=== PATIENT | male | born 1935 | race Caucasian/White ===

== ENCOUNTER 2022-03-21 09:01 | Outpatient (CLI) | payer MEDICARE, BC, SELFPAY ==
[2022-03-21 13:11] LABS: Chloride* 106 mmol/L (96-114); Sodium* 138 mmol/L (135-149)
[2022-03-21 13:12] LABS: Potassium* 4.5 mmol/L (3.6-5.1)
[2022-03-21 13:15] LABS: Blood Urea Nitrogen* 31 mg/dL (7-30); Calcium* 9.4 mg/dL (8.4-10.6); Carbon Dioxide* 24 mmol/L (20-32); Creatinine* 1.9 mg/dL (0.5-1.5); Estimated Glomerular Filt Rate 34 ml/min; Glucose* 115 mg/dL (60-115)
== END 2022-03-21 09:02 | disposition home or self-care (01) ==
LOC: NFLDREF 09:02
PROVIDERS: PCP Family Medicine; Visit Provider Family Medicine
DX: Z01.818 Encounter for other preprocedural examination (principal); I48.0 Paroxysmal atrial fibrillation
CPT/HCPCS: 80048

== ENCOUNTER 2022-03-30 10:29 | Day surgery (SDC) | payer MEDICARE, BC, SELFPAY ==
[2022-03-30] MEDS: SODIUM CHLORIDE 0.9 % (FLUSH) 10 ML SYRINGE IVF (11:05)
[2022-03-30] MEDS: KETOROLAC OPHTH 0.5% 1 DROP EYE-LEFT ×5 (11:15→12:05)
[2022-03-30 11:20] VITALS: BP 132/71; PULSE 77; RESP 18; TEMP 36.3; O2SAT 96
[2022-03-30 11:27] VITALS: BMI 27.8
[2022-03-30] MEDS: TETRACAINE 0.5% OPHTH 1 DROP EYE-LEFT (11:33)
[2022-03-30] MEDS: BALANCED SALT IRRIG SOLN 15 ML EYE-LEFT (12:35)
[2022-03-30] MEDS: TETRACAINE 0.5% OPHTH 2 DROP EYE-LEFT (12:35)
[2022-03-30 13:40] VITALS: BP 135/83; PULSE 81; RESP 16; TEMP 36.6; O2SAT 96
--- NOTE | 2022-03-30 13:46 | W.ANESCHARGE ---
Anesthesia Charges Start Date/Time Anesthesia Start Date: 03/30/22 Anesthesia Start Time: 13:15 Stop Date/Time Anesthesia Stop Date: 03/30/22 Anesthesia Stop Time: 13:45 Summary Emergency: No Extremes of Age: Over 72-CPT 18705
--- NOTE | 2022-03-30 13:48 | W.ANESCHARGE ---
Anesthesia Charges Start Date/Time Anesthesia Start Date: 03/30/22 Anesthesia Start Time: 13:15 Stop Date/Time Anesthesia Stop Date: 03/30/22 Anesthesia Stop Time: 13:45 Summary Emergency: No Extremes of Age: Over 72-CPT [id number]
--- NOTE | 2022-05-02 07:34 | OP_ITS ---
NAME OF PROCEDURE Kelman phacoemulsification, left eye, with posterior chamber lens implant. PREOPERATIVE DIAGNOSIS Nuclear sclerotic cortical combined cataract, left eye. ? POSTOPERATIVE DIAGNOSIS Nuclear sclerotic cortical combined cataract, left eye. ? INDICATIONS FOR PROCEDURE The patient has noted that his vision in the left eye is failing. ?He is status post cataract surgery, right eye many years ago. ?Severity 7/10. ?Unable to correct with glasses/contact lenses; has disabling night glare when he is driving, difficulty reading. ?Because of this, he elected to proceed with surgical repair. ?I have explained the risks, benefits, alternative treatments to him including possible loss of the eye under correction, over correction, need for more surgery. ?The patient understands, accepts, and elects to proceed with surgical repair. PROCEDURE The left eye was dilated with a combination 1% Mydriacyl, 2.5% phenylephrine with topical Ocufen and Vigamox applied to the corneal surface. ?He was brought to the main operating room where under IV sedation, after pausing to identify the correct patient, correct intraoperative lens, power 24 diopters, the left eye was prepped and draped in usual sterile fashion for intraocular surgery. ?A lid speculum was placed and a paracentesis created at 6 o'clock. ?The chamber was filled with OVD and entered temporally with a keratome. ?A continuous tear capsulotomy was performed. ?The nucleus was hydrodissected and emulsified with local anesthetic and emulsified in a chop technique in the capsular bag. ?Residual cortex was clean. ?The capsule was clear. ?At this point, ZCBOO 24 diopter posterior chamber lens implant was injected into the capsular bag and was well centered. ?Residual OVD was cleaned from behind the implant from the capsular bag. ?The incision hydrated and noted to be leak free. ?Topical Alphagan, pilocarpine, and Vigamox were applied to the corneal surface and the patient returned to recovery in good condition having tolerated the procedure well. CONDITION ON DISCHARGE Satisfactory.
== END 2022-03-30 14:06 | disposition home or self-care (01) ==
PROVIDERS: PCP Family Medicine; Visit Provider Ophthalmology
PROC: (CPT 66984; principal; 2022-03-30 12:00)
DX: H25.812 Combined forms of age-related cataract, left eye (principal)
CPT/HCPCS: 66984; 00142; 99100; A9270; J2250; J3010; S0020; V2632

== ENCOUNTER 2022-07-06 08:26 | Emergency (ER) | payer MEDICARE, BC, SELFPAY ==
[2022-07-06 08:59] VITALS: BP 135/86; PULSE 96; RESP 18; TEMP 36.4; O2SAT 95; BMI 28.7
--- NOTE | 2022-07-06 09:10 | ED_ITS ---
HPI - Male Genitourinary General Time Seen by Provider: 09:11 Date Seen: 07/06/22 Chief complaint: Urogenital Problems, Male Stated complaint: poss bladder infectioin Time Seen by Provider: 07/06/22 09:10 Source: patient, RN notes reviewed and old records reviewed Mode of arrival: ambulatory Limitations: no limitations History of Present Illness HPI Narrative: Patient is an 87-year-old male with known stage 3 chronic kidney disease, urinary retention who sap self caths multiple times a day who comes to the emergency room with what he describes as funny looking urine this morning. Patient notes that he does do a self catheterization and today noticed that he had some white substance in his urine. He has not felt feverish or had any vomiting. He notes previous UTIs. He is scheduled to follow-up with Dr. Escamilla tomorrow at her regularly scheduled appointment. He does tell me that he has chronic kidney disease. He does not know of any problems with bacterial susceptibility in the past. 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 (Acute) N18.30, D63.1 Allergic rhinitis (Acute) J30.9 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 Medical History?(Updated 03/21/22 @ 22:46 by Anselmo Escamilla MD) Abnormal blood level of cobalt Allergic rhinitis 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 Benign prostatic hyperplasia Diverticulum of bladder Flaccid neurogenic bladder Frequent urinary tract infections History of vitamin D deficiency Monoclonal gammopathy of unknown significance (MGUS) Paroxysmal atrial fibrillation with rapid ventricular response (04/29/21) Retention of urine Sepsis due to urinary tract infection (04/29/21) Stage 3 chronic kidney disease Thoracic aortic ectasia Related Data Home Medications Medication Instructions Recorded Confirmed zinc 50 mg tablet 50 mg PO QDAY 03/21/22 06/27/22 cholecalciferol (vitamin D3) 50 50 mcg PO QDAY 06/27/22 06/27/22 mcg (2,000 unit) capsule diphenhydramine 25 1 tab PO QHS PRN 06/27/22 06/27/22 mg-acetaminophen 500 mg tablet (Tylenol PM Extra Strength) loratadine 10 mg tablet (Claritin) 10 mg PO QDAY 06/27/22 06/27/22 Allergies Allergy/AdvReac Type Severity Reaction Status Date / Time oxycodone Allergy Intermediate Rash Verified 06/27/22 10:52 Review of Systems Status of ROS: Reports: 6 or more systems reviewed and unremarkable except as noted in History and below Narrative: Patient denies fever and chills, he has not had any vomiting, he has no painful urination, no body aches. [facility] Medical History Abnormal blood level of cobalt Allergic rhinitis 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 Benign prostatic hyperplasia Diverticulum of bladder Flaccid neurogenic bladder Frequent urinary tract infections History of vitamin D deficiency Monoclonal gammopathy of unknown significance (MGUS) Paroxysmal atrial fibrillation with rapid ventricular response (04/29/21) Retention of urine Sepsis due to urinary tract infection (04/29/21) Stage 3 chronic kidney disease Thoracic aortic ectasia Surgical History History of appendectomy History of open reduction and internal fixation (ORIF) procedure (194) History of phacoemulsification of cataract of right eye with intraocular lens implantation History of radial keratotomy (1997) History of total replacement of both hip joints (2006) Family History Father Bladder cancer Brother Colon cancer Sister Parkinson disease Social History Narrative: , 3 kids, 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 Nontoxic in appearance. Heart with regular rate and rhythm Lungs are clear to auscultation No CVA tenderness with percussion Abdomen soft nontender. Examination of the urine that he has brought with him shows of white creamy substance in the urine likely clumping of white cells. Const: Vital Signs, click to edit/add: Vital Signs - 24 hr 07/06/22 08:59 07/06/22 10:09 Temperature 97.5 F L 97.5 F L Pulse Rate [Right Pulse Oximeter] 96 96 Respiratory Rate 18 18 Blood Pressure [Ri ght Upper Arm] 135/86 135/86 Pulse Oximetry 95 Oxygen Delivery Me thod Room Air Course Vital Signs Vital signs: Initial Vital Signs Temperature 97.5 F L 07/06/22 08:59 Temperature Source Temporal Artery Scan 07/06/22 08:59 Pulse Rate 96 07/06/22 08:59 Respiratory Rate 18 07/06/22 08:59 Blood Pressure 135/86 07/06/22 08:59 Blood Pressure Mean 102 07/06/22 08:59 Blood Pressure Position Sitting 07/06/22 08:59 Pulse Oximetry 95 07/06/22 08:59 Oxygen Delivery Method 07/06/22 08:59 Vital Signs Temperature 97.5 F L 07/06/22 08:59 Pulse Rate 96 07/06/22 08:59 Respiratory Rate 18 07/06/22 08:59 Blood Pressure 135/86 07/06/22 08:59 Pulse Oximetry 95 07/06/22 08:59 Oxygen Delivery Method 07/06/22 08:59 Temperature 97.5 F L 07/06/22 10:09 Pulse Rate 96 07/06/22 10:09 Respiratory Rate 18 07/06/22 10:09 Blood Pressure 135/86 07/06/22 10:09 Pulse Oximetry 95 07/06/22 08:59 Oxygen Delivery Method 07/06/22 08:59 MDM - Male Genitourinary MDM Narrative Medical decision making narrative: 1. UTI-at this time patient does not appear septic but certainly urinalysis suggests UTI with greater than 100 wbc's, 2+ blood, positive for nitrites and leukocyte esterase. I was able to look back at a previous UTI encounter. Patient grew out E coli at that time with with lujan sensitivity. Will place patient on Keflex 500 mg p.o. t.i.d. x7 days. Patient will follow-up with his primary tomorrow. I would recommend checking to see if the culture has been returned to ensure that we are giving the correct antibiotic. 2. Disposition-patient is discharged home. Recommend returning for fever, vomiting, worsening symptoms and as needed. Note this patient was seen without the ability to access expanse. Therefore written instructions for discharge as well as a written prescription for Keflex were given to patient. Medical Records Attestation: I reviewed the patient's medical records. Lab Data Attestation: I reviewed the patient's lab results. Labs: Lab Results 07/06/22 Range/Units 09:05 Urine Color Yellow (Yellow) Urine Appearance Clear (Clear) Urine pH 6.0 (5.0-8.5) Ur Specific [place] >= 1.030 (1.000-1.030) Urine Protein 3+ A (Negative) Urine Glucose (UA) Negative (Negative) Urine Ketones Negative (Negative) Urine Blood 2+ A (Negative) Urine Nitrite Positive A (Negative) Urine Bilirubin Negative (Negative) Urine Urobilinogen 0.2 (0.2-1.0) Ur Leukocyte Esterase 3+ A (Negative) Urine RBC 5-10 A (0-2) Urine WBC >100 A (0-5) Ur Squamous Epith Cells None (None-Few) Urine Bacteria Moderate A (None) Discharge Plan Discharge Prescriptions: No Action cholecalciferol (vitamin D3) 50 mcg (2,000 unit) capsule 50 mcg PO QDAY loratadine [Claritin] 10 mg tablet 10 mg PO QDAY diphenhydramine-acetaminophen [Tylenol PM Extra Strength] 25-500 mg tablet 1 tab PO QHS PRN zinc 50 mg tablet 50 mg PO QDAY Follow Up/Referrals: Anselmo Escamilla MD [Primary Care Provider] -
[2022-07-06 09:19] LABS: Appearance Urine Clear (Clear); Bilirubin Urine Negative (Negative); Blood Urine 2+ (Negative); Color Urine Yellow (Yellow); Glucose Urine Negative (Negative); Ketones Urine Negative (Negative); Leukocyte Esterase Urine 3+ (Negative); Nitrite Urine Positive (Negative); Protein Urine 3+ (Negative); Specific Gravity Urine >= 1.030 (1.000-1.030); Urobilinogen Urine 0.2 (0.2-1.0)
[2022-07-06 09:29] LABS: Bacteria Urine Moderate; WBC Urine >100 (0-5)
--- NOTE | 2022-07-06 10:00 | ED.NURSE ---
Paper Rx for Keflex given to Pt: Keflex 500mg PO TID x7 days. D/C instructions reviewed with Pt and spouse. Questions answered and Pt verbalizes understanding. VSS. Pt leaves ED with spouse ambulatory, tolerates well.
--- OUTSIDE RECORDS SUMMARY | 2022-07-06 10:01 | XMS_ITS | Clinical Summary ---
:1935 Author Organization [facility] [place] [address] Care Team Providers Name Role Phone Cruz Lemon MD Unavailable Fredy Brizuela Unavailable Anselmo Escamilla MD Primary Care Provider [phone] Allergies Active Allergy Reactions Severity Noted Date Comments Amoxicillin Rash 12/15/2021 Oxycodone Rash 07/03/2007 Medications Medication Sig Dispensed Refills Start Date End Date Status zinc sulfate 50 mg zinc Daily 0 Active (220 mg) capsule tamsulosin (FLOMAX) 0.4 Take 0.4 mg by 0 05/03/2021 Active mg capsule mouth. povidone-iodine 10% Apply topically 0 05/05/2021 Active (BETADINE) 10 % to affected external solution area(s). Catheter 14-16 Fr- As directed. 60 Each 2 05/12/2021 Active miscIndications: BPH coudet tip, with urinary obstruction cholecalciferol Take 1 Tablet 0 12/15/2021 Active (Vitamin D) 1,000 unit (1,000 units) by tablet mouth once daily. 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 11/28/2018 MGUS (monoclonal gammopathy of unknown significance) 0 11/28/2018 Hypercalcemia 10/24/2018 Acute renal failure (ARF) 10/24/2018 Generalized osteoarthrosis, unspecified site 0 Sciatica 01/15/2009 Overview: Right L5-S1: only numbness right foot Routine general medical examination at a health care f acility 12/24/2008 Overview: Has declined colonoscopy (bro with Colon Ca) Lipids: 188 tot/ 105 LDL 2000 PSA: 0.1 2000 Allergic rhinitis, cause unspecified Encounters Date Type Specialty Care Team Description 06/22/2022 Orders Only Johnnie Parry, <No scans attached> 06/17/2022 Telephone Johnnie Parry, Lab 04/21/2022 Orders Only Lab, [place] Outside Order ( Sea Danielle/) 04/21/2022 Travel 04/07/2022 Orders Only Krishna Infante, Aii de Order (Dr Sea Danielle) 04/07/2022 Orders Only Anselmo Escamilla, <No s cans attached> from Last 3 Months Immunizations Name Administration Dates Next Due AMB Influenza, IIV3 (Age >=3 08/26/2010, 09/12/2008 years)(Flu Clinic Only) AMB Influenza, IIV4 PF (=>6 mos 07/18/2019 Flulaval,Fluzone Fluarix)(Flu Clinic Only) Amb Influenza, Inactivated AIIV4 (Age 1006/23/2020 65+ Years) Preserv Free Influenza, High-dose Inactivated 08/31/2018 Influenza, IIV3 (Age 6-35 mos) 08/19/2009 Influenza, IIV3 (Age >=3 years) 08/06/2015, 08/08/2014, 07/06, 09/07/2012, 07/05/2012, 08/19/2009, 07/03/2007, 10/10/2006, 06/23/2004, 08/20/2003 Influenza, IIV4 08/04/2018 Influenza, Inactivated AIIV4 (Age 65+ 05/19/2021 Years) Preserv Free Influenza, Whole Virus 08/07/2017 Pneumococcal Poly,23-Valent 12/24/2008 (Pneumovax) Td, Preservative Free (age >= 7 03/10/2009 Years) Tdap 02/06/2013 Zoster (Zostavax-ZVL, live) 01/15/2009 Family History Medical History Relation Name Comments Cancer-colon Brother Jonny Cancer Father Mitch Bladder Other Sister Cha Parkinson's Anesthesia Problem No Family History Blood Disease No Family History Relation Name Status Comments Brother Jonny Alive Father Mitch (Age 94) Mother Rosalind (Age 88) Sister Cha (Age 79) Parkinson's Social History Tobacco Use Types Packs/Day Years Used Date Never Smoker Smokeless Tobacco: Never Used Tobacco Cessation: Counseling Given: Yes Alcohol Use Standard Drinks/Week Comments Yes 1.7 (1 standard drink = 0.6 oz pure alco hol) occasional wine Sex Assigned at Date Recorded Not on file Obstetrics History Last Filed Vital Signs Vital Sign Reading Time Taken Comments Blood Pressure 138/77 12/15/2021 3:23 PM CDT Pulse 75 12/15/2021 3:23 PM CDT Temperature 36.7 ??C (98.1 ??F) 05/19/2021 12:41 PM CDT Respiratory Rate 16 10/29/2018 4:00 PM HYPERION DEVELOPER Oxygen Saturation 96% 12/15/2021 3:23 PM CDT Inhaled Oxygen Concentration - - Weight 91.7 kg (202 lb 3.2 oz) 12/15/2021 3:23 PM CDT Height 180 cm (5' 10.87) 02/27/2019 2:21 PM CDT Body Mass Index 28.31 02/27/2019 2:21 PM CDT Plan of Treatment Upcoming Encounters Date Type Specialty Care Team Description 09/22/2022 Orders Only Lab, [place] 09/29/2022 Office Visit Johnnie Parry MD [address] [place], [place] [address] (Wo rk) Health Maintenance Due Date Last Done Comments Zoster (shingles) series for age 0703/12/2009 01/15/2009 50+ (1 of 2) Pneumococcal series for age 65+ (2 12/24/2009 12/24/2008 - PCV) Medicare Wellness for age 65+ 02/06/2014 02/06/2013 BMI (ht and wt on same day) for 02/28/2020 02/27/2019, 03/2019, age 18+ 11/29/2018, Additional history exists COVID-19 vaccine series (4 - 10/12/2021 08/17/2021, 021, Booster for Moderna series) 10/18/2020 Depression screening for age 12+ 04/01/2022 04/01/2021, , 03/27/2021, Additional history exists Influenza for age 65+ 05/05/2022 05/19/2021, 06/23/2020, 07/18/2019, Additional history exists Tetanus booster 02/06/2023 02/06/2013, 03/10/2009 Tdap Completed 02/06/2013 Procedures Procedure Name Priority Date/Time Associated Diagnosis Comme nts CBC WITH AUTO Routine 04/21/2022 7:41 Monoclonal Results for this DIFFERENTIAL AM CDT paraproteinemia procedure ar e in the results section. PROTEIN ELP,SERUM Routine 04/21/2022 7:41 Monoclonal Results for this AM CDT paraproteinemia procedure ar e in the results section. LD,TOTAL Routine 04/21/2022 7:41 Monoclonal Results for this AM CDT paraproteinemia procedure ar e in the results section. IMMUNOGLOBULINS,IGG/ Routine 04/21/2022 7:41 Monoclonal Resu lts for this A/M AM CDT paraproteinemia procedure ar e in the results section. COMP METABOLIC PANEL Routine 04/21/2022 7:41 Monoclonal Resu lts for this AM CDT paraproteinemia procedure ar e in the results section. CBC WITH AUTO Routine 04/21/2022 7:41 Monoclonal Results for this DIFFERENTIAL AM CDT paraproteinemia procedure ar e in the results section. from Last 3 Months Results (ABNORMAL) CBC WITH AUTO DIFFERENTIAL (04/21/2022 7:41 AM CDT) [facility] Method Time Signature WHITE BLOOD 6.7 4.5 - 04/21/2022 [facility] COUNT 11.0 7:57 AM CDT [facility]/ CLINIC mm RED BLOOD COUNT 4.26 (L) 4.30 - 04/21/2022 [facility] 5.90 7:57 AM CDT [facility] CLINIC HEMOGLOBIN 13.5 13.5 - 04/21/2022 [facility] 17.5 g/dL 7:[address] [facility] HEMATOCRIT 41.9 37.0 - 04/21/2022 [facility] HEALTH 53.0 % 7:[address] [facility] MCV 98 80 - 100 04/21/2022 [facility] fL 7:[address] [facility] MCH 31.7 26.0 - 04/21/2022 [facility] 34.0 pg 7:[address] [facility] MCHC 32.2 32.0 - 04/21/2022 [facility] 36.0 g/dL 7:[address] [facility] RDW 13.4 11.5 - 04/21/2022 [facility] 15.5 % 7:[address] [facility] PLATELET COUNT 215 140 - 440 04/21/2022 [facility] thou/cu 7:57 AM CDT [facility] CLINIC MPV 9.8 6.5 - 04/21/2022 [facility] 11.0 fL 7:[address] [facility] % NEUT 71.9 % 04/21/2022 [facility] 7:[address] [facility] % LYMPH 16.0 % 04/21/2022 [facility] 7:[address] [facility] % MONO 10.2 % 04/21/2022 [facility] 7:[address] [facility] % EOS 1.5 % 04/21/2022 [facility] 7:[address] [facility] % BASO 0.4 % 04/21/2022 [facility] 7:[address] [facility] ABSOLUTE 4.8 1.7 - 7.0 04/21/2022 [facility] NEUTROPHILS thou/cu 7:57 AM CDT [facility] CLINIC ABSOLUTE 1.1 0.9 - 2.9 04/21/2022 [facility] LYMPHOCYTES thou/cu 7:57 AM CDT [facility] CLINIC ABSOLUTE 0.7 <0.9 04/21/2022 [facility] MONOCYTES thou/cu 7:57 AM CDT [facility] CLINIC ABSOLUTE 0.1 <0.5 04/21/2022 [facility] EOSINOPHILS thou/cu 7:57 AM CDT [facility] CLINIC ABSOLUTE 0.0 <0.3 04/21/2022 [facility] BASOPHILS thou/cu 7:[address] [facility] Specimen Anatomical Collection Method / Collection Time Recei crystal Time (Source) Location / Volume Laterality Blood BLOOD SPECIMEN / Venipuncture / 04/21/2022 7:41 2021 7:42 Unknown Unknown AM CDT AM CDT Narrative [facility] - 2021 7:57 AM CDT The lab will provide the testing results for CDF,CMP,IgGsub,Igtotal,LDH,SEP, to the outside provider, ??Dr Sea Danielle at x number [phone], for that provider to inform and arrange appropriate follow up with the patient. Krishna Infante MD HEMATOLOGY Performing Organization Address City/State/ZIP Code Phon e Number [facility] [address] [place] [address] IMMUNOGLOBULINS,IGG/A/M (04/21/2022 7:41 AM CDT) athologist Signature IGM 54.30 35.00 - 04/22/2022 [facility] 242.00 10:46 AM CDT LAB[facility]ATORY-CENT mg/dL [facility] IGA 271.42 84.50 - 04/22/2022 [facility] 499.00 10:46 AM CDT [facility] mg/dL [facility] IGG 1,229.31 610.30 - 04/22/2022 [facility] 1,616.00 10:46 AM CDT LABORATORY-CENT mg/dL [facility] Specimen Anatomical Collection Method / Collection Time Recei crystal Time (Source) Location / Volume Laterality Blood BLOOD SPECIMEN / Venipuncture / 04/21/2022 7:41 2021 7:42 Unknown Unknown AM CDT AM CDT Krishna Infante MD CHEMISTRY Performing Organization Address City/State/ZIP Code Phon e Number [facility] [address] [place], [place] [address] [place] [address] LABORATORY-CENTRAL 2000 LABORATORY LD,TOTAL (04/21/2022 7:41 AM CDT) P athologist Signature LD,TOTAL 133 125 - 220 04/21/2022 [facility] IU/L 6:17 PM CDT LABORATORY-CENTR AL LABORATORY Specimen Anatomical Collection Method / Collection Time Recei crystal Time (Source) Location / Volume Laterality Blood BLOOD SPECIMEN / Venipuncture / 04/21/2022 7:41 2021 7:42 Unknown Unknown AM CDT AM CDT Krishna Infante MD CHEMISTRY Performing Organization Address City/State/ZIP Code Phon e Number [facility] [address] [place] [address] LABORATORY-CENTRAL 2000 LABORATORY (ABNORMAL) PROTEIN ELP,SERUM (04/21/2022 7:41 AM CDT) Component Value Ref Test Analysis Performed At [facility] Range Method Time Signature PROTEIN,TOTAL 7.3 6.0 - 04/22/2022 [facility] 8.0 g/dL 4:55 PM CDT LABORATORY-CE [facility] LABORATORY ELP,ALBUMIN 4.19 3.31 - 04/22/2022 [facility] 5.31 4:55 PM CDT LABORATORY-CE g/dL [facility] LABORATORY ELP,ALPHA 1 0.30 0.19 - 04/22/2022 [facility] 0.42 4:55 PM CDT LABORATORY-CE g/dL [facility] LABORATORY ELP,ALPHA 2 0.89 0.44 - 04/22/2022 [facility] 1.03 4:55 PM CDT LABORATORY-CE g/dL [facility] LABORATORY ELP,GAMMA 1.13 0.59 - 04/22/2022 [facility] 1.46 4:55 PM CDT LABORATORY-CE g/dL [facility] LABORATORY ELP,BETA 0.80 0.52 - 04/22/2022 [facility] 1.05 4:55 PM CDT LABORATORY-CE g/dL [facility] LABORATORY MONOCLONAL 0.31 <=0.00 04/22/2022 [facility] PEAK 1 g/dL 4:55 PM CDT LABORATORY-CE [facility] LABORATORY ELP Interval study shows essenti ally no change in magnitude of previously identified monoclonal peak. Previous Study: 0.30 gm/dL on 02/11/2021. 04/22/2022 [facility] C2[facility] INTERP,SERUM 4:55 PM CDT LABORATORY-CE Interpreted and electronically signed by: NTRJO Paul MD LABORAT ORY Specimen Anatomical Collection Method / Collection Time Recei crystal Time (Source) Location / Volume Laterality Blood BLOOD SPECIMEN / Venipuncture / 04/21/2022 7:41 2021 7:42 Unknown Unknown AM CDT AM CDT Krishna Infante MD CHEMISTRY Performing Organization Address City/State/ZIP Code Phon e Number [facility] [address] [place] [address] LABORATORY-CENTRAL 2000 LABORATORY (ABNORMAL) COMP METABOLIC PANEL (04/21/2022 7:41 AM CDT) [facility] Method Time Signature SODIUM 139 135 - 145 04/21/2022 [facility] mmol/L 6:09 PM CDT LABORATORY-[facility] TRAL LABORATORY POTASSIUM 4.6 3.5 - 5.0 04/21/2022 [facility] mmol/L 6:09 PM CDT LAB[facility]ATORY[facility] TRAL LABORATORY CHLORIDE 107 98 - 110 04/21/2022 [facility] mmol/L 6:09 PM CDT [facility] LABORATORY CO2,TOTAL 23 21 - 31 04/21/2022 [facility] mmol/L 6:09 PM CDT [facility] LABORATORY ANION GAP 9 5 - 18 04/21/2022 [facility] 6:09 PM CDT [facility] LABORATORY GLUCOSE 81 65 - 100 04/21/2022 [facility] mg/dL 6:09 PM CDT [facility]AT[facility] TRAL LABORATORY CALCIUM 9.2 8.5 - 04/21/2022 [facility] 10.5 6:09 PM CDT [facility]ATORY[facility] mg/dL TRAL LABORATORY BUN 32 (H) 8 - 25 04/21/2022 [facility] mg/dL 6:09 PM CDT [facility] TRAL LABORATORY CREATININE 1.97 (H) 0.72 - 04/21/2022 [facility] 1.25 6:09 PM CDT LABORATORY-[facility] mg/dL TRAL LABORATORY BUN/CREAT RATIO 16 10 - 20 04/21/2022 [facility] 6:09 PM CDT [facility] TRAL LABORATORY ALBUMIN 4.1 3.2 - 4.6 04/21/2022 [facility] g/dL 6:09 PM CDT [facility] TRAL LABORATORY PROTEIN,TOTAL 7.4 6.0 - 8.0 04/21/2022 [facility] g/dL 6:09 PM CDT [facility]AL LABORATORY GLOBULIN 3.3 2.0 - 3.7 04/21/2022 [facility] g/dL 6:09 PM CDT LABORATORY[facility] TRAL LABORATORY A/G RATIO 1.2 1.0 - 2.0 04/21/2022 [facility] 6:09 PM CDT [facility] TR[facility] LABORATORY BILIRUBIN,TOTAL 0.5 0.2 - 1.2 04/21/2022 [facility] mg/dL 6:09 PM CDT [facility]AT[facility] TRAL LABORATORY ALK PHOSPHATASE 74 50 - 136 04/21/2022 [facility] IU/L 6:09 PM CDT [facility] TRAL LABORATORY ALT (SGPT) 13 8 - 45 04/21/2022 [facility] IU/L 6:09 PM CDT [facility] TRAL LABORATORY AST (SGOT) 17 2 - 40 04/21/2022 [facility] IU/L 6:09 PM CDT [facility] TRAL LABORATORY eGFR 33 (L) >90 04/21/2022 [facility] mL/min/1. 6:09 PM CDT LABORATORY-[facility] 73m2 TRAL LABORATORY Comment: As of 2021, eGFR is calcu lated by the CKD-EPI creatinine equation without race adjustment. eGFR can be inf luenced by muscle mass, exercise, and diet. The reported eGFR is an estimation only and is only applicable if the renal function is stable. Specimen Anatomical Collection Method / Collection Time Recei crystal Time (Source) Location / Volume Laterality Blood BLOOD SPECIMEN / Venipuncture / 04/21/2022 7:41 2021 7:42 Unknown Unknown AM CDT AM CDT Krishna Infante MD CHEMISTRY Performing Organization Address City/State/ZIP Code Phon e Number [facility] [address] [place] [address] LABORATORY-CENTRAL 2000 LABORATORY from Last 3 Months Insurance Payer Benefit Plan / Subscriber ID Effective Dates Phone Addre ss Type Group MEDICARE PART B MEDICARE PART B [id number] 2002-Presen ATTN: CLAIMS - HB USE ONLY HB ONLY t [address] [place] [address] MEDICARE PART A MEDICARE PART A [id number] 2002-Presen ATTN: CLAIMS - HB USE ONLY HB ONLY t [address] [place] [address] MEDICARE - PB MEDICARE PB [id number] 2002-Presen ATTN : CLAIMS USE ONLY ONLY t [address] [place] [address] BLUE CROSS BLUE CROSS OF [id number] 2016-Presen [address] [place] [phone] (Work) [phone] Advance Directives Documents on File Type Date Recorded Patient Training And Development Head Explanati on Healthcare Directive 10/25/2018 6:11 PM 02 MAY 2003 Latest Code Status on File Code Status Date Activated Date Inactivated Comments Full Code 10/24/2018 2:26 PM 10/29/2018 7:06 PM Code Status Discussion: Discussed Care Teams Shuttlecock Feather Trimmer Relationship Specialty Start Date End Date Anselmo Escamilla MD PCP - General Family Practice 07/08/211999 [place] [address] Cruz Lemon MD Ophthalmology Surgery 02/06/[address] [place] [id number] Fredy Brizuela Ophthalmology Surgery 02/06/13 [address] [place] [address]
[2022-07-06 10:09] VITALS: BP 135/86; PULSE 96; RESP 18; TEMP 36.4
== END 2022-07-06 10:00 | disposition home or self-care (01) ==
LOC: ED 09:59
PROVIDERS: Emergency Provider Family Medicine; PCP Family Medicine
DX: N39.0 Urinary tract infection, site not specified (principal); D63.1 Anemia in chronic kidney disease; N18.30 Chronic kidney disease, stage 3 unspecified; Z88.5 Allergy status to narcotic agent
CPT/HCPCS: 81003; 81015; 87086; 99283

== ENCOUNTER 2022-10-10 09:29 | Outpatient (REF) | payer MEDICARE, BC, SELFPAY ==
[2022-10-10 11:04] LABS: Basophils Percent Auto 0.7 % (0.0-3.0); Eosinophils Percent Auto 1.2 % (0.0-7.0); Hematocrit 44.8 % (37.0-53.0); Hemoglobin* 13.9 gm/dL (13.5-17.5); Immature Granulocytes Pct Auto 0.2 %; Lymphocytes Percent Auto 22.3 % (20-44); Mean Corpuscular HGB Conc 31 gm/dL (32-36); Mean Corpuscular Hemoglobin 31 pg (26-34); Mean Corpuscular Volume 99 fL (80-100); Monocytes Percent Auto 10.4 % (0.0-11.0); Neutrophils Percent Auto 65.2 % (42.0-72.0); Platelet Count* 202 K/uL (140-440); RDW Coefficient of Variation % 12.4 % (11.5-15.5); Red Blood Count 4.53 m/uL (4.30-5.90); White Blood Count* 4.03 K/uL (4.50-11.00)
[2022-10-10 11:06] LABS: Slide Review Reflex No
[2022-10-10 11:21] LABS: Lactate Dehydrogenase* 161 U/L (120-246)
[2022-10-11 15:54] LABS: Immunoglobulin A 257 mg/dL (68-408); Immunoglobulin G 1260 mg/dL (768-1632); Immunoglobulin M 57 mg/dL (35-263)
[2022-10-18 16:26] LABS: Albumin 4.15 g/dL (3.75-5.01); Alpha 2 Globulin 0.93 g/dL (0.48-1.05); Monoclonal Protein 0.55 g/dL; Total Protein, Serum 7.3 g/dL (6.3-8.2)
== END 2022-10-10 09:30 | disposition home or self-care (01) ==
LOC: NPINS 09:29
PROVIDERS: PCP Family Medicine
DX: D47.2 Monoclonal gammopathy (principal)
CPT/HCPCS: 82784; 82787; 83615; 84165; 85025

== ENCOUNTER 2023-04-20 12:30 | Outpatient (REF) | payer MEDICARE, BC, SELFPAY ==
[2023-04-20 14:31] LABS: Basophils Absolute Auto 0.02 K/uL (0.00-0.30); Basophils Percent Auto 0.3 % (0.0-3.0); Eosinophils Absolute Auto 0.07 K/uL (0.00-0.50); Eosinophils Percent Auto 1.2 % (0.0-7.0); Hematocrit 42.3 % (37.0-53.0); Hemoglobin* 13.3 gm/dL (13.5-17.5); Immature Granulocytes Abs Auto 0.01 K/uL (0.00-0.30); Immature Granulocytes Pct Auto 0.2 %; Lymphocytes Percent Auto 13.2 % (20-44); Mean Corpuscular HGB Conc 31 gm/dL (32-36); Mean Corpuscular Hemoglobin 31 pg (26-34); Mean Corpuscular Volume 98 fL (80-100); Monocytes Percent Auto 9.4 % (0.0-11.0); Neutrophils Percent Auto 75.7 % (42.0-72.0); Platelet Count* 224 K/uL (140-440); RDW Coefficient of Variation % 12.3 % (11.5-15.5); Red Blood Count 4.33 m/uL (4.30-5.90); White Blood Count* 6.06 K/uL (4.50-11.00)
[2023-04-20 15:07] LABS: Slide Review Reflex No
[2023-04-20 16:05] LABS: Albumin* 4.3 g/dL (3.3-5.0); Chloride* 102 mmol/L (96-114)
[2023-04-20 16:06] LABS: Potassium* 4.6 mmol/L (3.6-5.1); Sodium* 137 mmol/L (135-149)
[2023-04-20 16:08] LABS: Alkaline Phosphatase* 69 U/L (40-150); Aspartate Amino Transferase* 27 U/L (12-35); Bilirubin Total* 0.6 mg/dL (0.1-1.5); Blood Urea Nitrogen* 29 mg/dL (7-30); Carbon Dioxide* 25 mmol/L (20-32); Creatinine* 1.6 mg/dL (0.5-1.5); Estimated Glomerular Filt Rate 42 ml/min; Glucose* 112 mg/dL (60-115); Lactate Dehydrogenase* 190 U/L (120-246); Total Protein* 7.3 g/dL (6.0-8.3)
[2023-04-20 16:09] LABS: Alanine Aminotransferase* 21 U/L (4-50)
[2023-04-23 01:01] LABS: Albumin 4.23 g/dL (3.75-5.01); Alpha 1 Globulin 0.28 g/dL (0.19-0.46); Alpha 2 Globulin 0.88 g/dL (0.48-1.05); Immunofixation IFE Done; Immunoglobulin A 233 mg/dL (68-408); Immunoglobulin G 1160 mg/dL (768-1632); Immunoglobulin M 53 mg/dL (35-263); Kappa Qnt Free Light Chains 33.77 mg/L (3.30-19.40); Kappa/Lambda Light Chain Ratio 0.99 (0.26-1.65); Lambda Qnt Free Light Chains 34.11 mg/L (5.71-26.30); Monoclonal Protein 0.55 g/dL; Total Protein, Serum 7.3 g/dL (6.3-8.2)
[2023-05-01 15:06] LABS: Calcium* 9.2 mg/dL (8.4-10.6)
== END 2023-04-20 12:31 | disposition home or self-care (01) ==
LOC: NPINS 12:30
PROVIDERS: Internal Medicine Hematology & Oncology; PCP Family Medicine
DX: D47.2 Monoclonal gammopathy (principal)
CPT/HCPCS: 80053; 82784; 82787; 83520; 83615; 84155; 84165; 85025; 86334

== ENCOUNTER 2023-09-26 08:59 | Outpatient (CLI) | payer MEDICARE, BC, SELFPAY ==
--- OUTSIDE RECORDS SUMMARY | 2023-09-28 13:27 | XMS_ITS | Encounter Summary ---
Author Name Unknown Organization [facility] Address [address] [place] [address] Care Team Providers Care Boom Crane Operator Name Role Phone Unavailable Primary Care Provider Unavailabl e Reason for Visit * Appointment Request (Routine) - Closed Specialty Diagnoses / Procedures Referred By Mira ricci Referred To Contact Nephrology and Hypertension Referral ID Status Reason Start Date Expiration Date Visits Re quested Visits Authorized [id number] Closed 09/08/2023 09/07/2024 1 1 Encounter Details Date Type Department Care Team (Latest Contact Info) Description 09/26/2023 8:00 AM LEATHER CASE FINISHER External Outreach Division of Nephrology and Hypertension in [place], [place] [address] [place] [address] Jaime Bull Jr., D.O. [address] [place] [address] Chronic Kidney Disease (CKD), Stage 3b Glomerular [...] Comments Blood Pressure 146/80 09/26/2023 8:04 AM LEATHER CASE FINISHER Pulse 93 09/26/2023 8:04 AM LEATHER CASE FINISHER Temperature - - Respiratory Rate - - Oxygen Saturation - - Inhaled Oxygen Concentration - - Weight 87.9 kg (193 lb 12.6 oz) 09/26/2023 8:04 AM LEATHER CASE FINISHER Height 177.8 cm (5' 10) 09/26/2023 8:04 AM LEATHER CASE FINISHER Body Mass Index 27.81 09/26/2023 8:04 AM LEATHER CASE FINISHER documented in this encounter Progress Notes * Jaime Bull Jr., D.O. - 09/26/2023 8:00 AM CST Referring Provider: No primary care provider on file. SUBJECTIVE REASON FOR VISIT [place] out reach CKD Follow-up regards prior episode of acute kidney injury, now CKD stage IIIA, prior hypercalcemia, monoclonal gammopathy unknown significance right pelvis lesion HISTORY OF PRESENT ILLNESS Mr. Diaz is a 57 y.o. male who presents with the above matters. There was some confusion following her last visit, he would interacted with his son who is a general surgeon, phone number [phone]. There were some questions asked by his [...] pending today, I will contact him at [phone] ASSESSMENT / PLAN #1 Chronic Kidney Disease [...] day. #2 Hypertension And Chronic Kidney Disease [id number] Goal blood pressures have been achieved at [...] Time: 30 minutes Jaime Bull Jr., D.O. 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
--- OUTSIDE RECORDS SUMMARY | 2023-09-28 13:27 | XMS_ITS | Referral Summary ---
Author Name Unknown Organization [facility] Address [address] [place] [address] Care Team Providers Care Caramel Cutter Machine Name Role Phone Unavailable Primary Care Provider Unavailabl e Source Comments Patient records contain information from all sites at [facility]. For routine questions regarding patient records, call [phone] during business hours, M-F 8:00 AM - 5:00 PM Central Time. Record requests for emergency care only can be directed to [phone] at any time.[facility] Encounters Date Type Department Care Team Description 09/26/2023 8:00 AM UNIVERSAL GRINDER TOOL External Outreach Division of Nephrology and Hypertension in [place], [place] [address] [place] [address] Jaime Bull Jr., D.O. Chronic Kidney Disease (CKD), Stage 3b Glomerular Filtration Rate (GFR) 30 To 44 (HCC) (Primary Dx); Hyperparathyroidism Renal Secondary (HCC); Anemia Of Chronic Renal Failure 08/08/2023 3:30 PM UNIVERSAL GRINDER TOOL External Outreach Division of Nephrology and Hypertension in [place], [place] [address] [place] [address] Jaime Bull Jr., D.O. Chronic Kidney Disease [...] Comments Blood Pressure 146/80 09/26/2023 8:04 AM UNIVERSAL GRINDER TOOL Pulse 93 09/26/2023 8:04 AM UNIVERSAL GRINDER TOOL Temperature - - Respiratory Rate 14 11/06/2013 8:15 AM UNIVERSAL GRINDER TOOL Vital sign result from Clinical Notes. Oxygen Saturation - - Inhaled Oxygen Concentration - - Weight 87.9 kg (193 lb 12.6 oz) 09/26/2023 8:04 AM UNIVERSAL GRINDER TOOL Height 177.8 cm (5' 10) 09/26/2023 8:0 4 AM UNIVERSAL GRINDER TOOL Body Mass Index 27.81 09/26/2023 8:04 AM UNIVERSAL GRINDER TOOL Plan of Treatment Not on file Medical Devices Implanted Type Area Archeologist Classical Device Identifier Shelf Expiration Date Model / Serial / Lot Conversions - Default Historical Implant Device Implanted:2015 (Quantity not on file) Hip Implant Description:Device Status Te xt - Hip Imp.
--- OUTSIDE RECORDS SUMMARY | 2023-09-28 13:27 | XMS_ITS | Encounter Summary ---
Author Name Unknown Organization [facility] Address [address] [place] [address] Care Team Providers Care Take Away Worker Name Role Phone Unavailable Primary Care Provider Unavailabl e Reason for Visit * Appointment Request (Routine) - Closed Specialty Diagnoses / Procedures Referred By Mira ricci Referred To Contact Nephrology and Hypertension Anselmo Escamilla M.D. [address] [place] [address] Referral ID Status Reason Start Date Expiration Date Visits Re quested Visits Authorized [id number] Closed 07/13/2023 07/12/2024 1 1 Encounter Details Date Type Department Care Team (Latest Contact Info) Description 08/08/2023 3:30 PM HAZARDOUS MATERIALS ANALYST External Outreach Division of Nephrology and Hypertension in [place], [place] [address] [place] [address] Jaime Bull Jr., D.O. [address] [place] [address] Chronic Kidney Disease (CKD), Stage 3b Glomerular [...] Comments Blood Pressure 138/52 08/08/2023 1:53 PM HAZARDOUS MATERIALS ANALYST Pulse 78 08/08/2023 1:53 PM HAZARDOUS MATERIALS ANALYST Temperature - - Respiratory Rate - - Oxygen Saturation - - Inhaled Oxygen Concentration - - Weight 89.8 kg (197 lb 15.6 oz) 08/08/2023 1:53 PM HAZARDOUS MATERIALS ANALYST Height 177.8 cm (5' 10) 08/08/2023 1:53 PM HAZARDOUS MATERIALS ANALYST Body Mass Index 28.41 08/08/2023 1:53 PM HAZARDOUS MATERIALS ANALYST documented in this encounter Progress Notes * Jaime Bull Jr., D.O. - 08/08/2023 3:30 PM CST Referring Provider: DR Francine Latham SUBJECTIVE REASON FOR VISIT [facility] Consultation management regards CKD HISTORY OF PRESENT ILLNESS Mr. Hunt is a 88 y.o. male who presents with a longstanding history of CKD, which is evident from reviewing his chart, showing a serum creatinine of 1.3-1.4 mg/dL preceding a dramatic event in October of 2018. He presented to the [facility] feeling poorly with a serum calcium level [...] or gout issues. 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
--- OUTSIDE RECORDS SUMMARY | 2023-09-28 13:27 | XMS_ITS | Clinical Summary ---
Author Name Unknown Organization [facility] Address [place], [place] [address] Care Team Providers Care Sprayer Leather Name Role Phone Cruz Lemon MD Unavailable [phone] Fredy Brizuela Unavailable Anselmo Escamilla MD [...] Comments Blood Pressure 136/81 09/29/2022 9:47 AM FRONT DESK PERSON Pulse 78 09/29/2022 9:47 AM FRONT DESK PERSON Temperature 36.7 ??C (98.1 ??F) 05/19/2021 1 2:41 PM CDT Respiratory Rate 16 10/29/2018 4:00 PM FRONT DESK PERSON Oxygen Saturation 97% 09/29/2022 9:47 AM FRONT DESK PERSON Inhaled Oxygen Concentration - - Weight 90.6 kg (199 lb 11.2 oz) 09/29/2022 9:47 AM FRONT DESK PERSON Height 180 cm (5' 10.87) 02/27/2019 2:21 [...] Documents on File Type Date Recorded Patient Statement Distribution Clerk Expl anation Healthcare Directive 10/25/2018 6:11 PM 02 MAY 2003 Latest Code Status on File Code Status Date Activated Date Inactivated Comments Full Code 10/24/2018 2:26 PM 10/29/2018 7:06 PM Question Answer Comments Code Status Discussion: Discussed Care Teams Sprayer Leather Relationship Specialty Start Date End Date Anselmo Escamilla MD [address] [place] [address] PCP - General Family Practice 07/08/21 Cruz Lemon MD [address] [place] [id number] Ophthalmology Surgery 02/06/13 Freyd Brizuela [address] [place] [id number] Ophthalmology Surgery 02/06/13
--- OUTSIDE RECORDS SUMMARY | 2023-09-28 13:27 | XMS_ITS ---
Author Name Unknown Organization [facility] Address [address] [place] [address] Care Team Providers Care Telephone Switchboard Operator Name Role Phone Unavailable Unavailable Unavailable Surgery Details Not on file Complications Check Surgery Details section. Procedure Estimated Blood Loss Check Surgery Details section. Procedure Findings Check Surgery Details section. Procedure Specimens Taken Check Surgery Details section.
--- OUTSIDE RECORDS SUMMARY | 2023-09-28 13:27 | XMS_ITS | Clinical Summary ---
Author Name Unknown Organization [facility] Address [address] [place] [address] Care Team Providers Care Water Resources Engineer Name Role Phone Unavailable Primary Care Provider Unavailabl e Source Comments Patient records contain information from all sites at [facility]. For routine questions regarding patient records, call [phone] during business hours, M-F 8:00 AM - 5:00 PM Central Time. Record requests for emergency care only can be directed to [phone] at any time.[facility] Allergies Active Allergy Reactions Criticality Noted Date [...] Department Care Team Description 09/26/2023 8:00 AM PROGRAM MANAGEMENT INTERN External Outreach Division of Nephrology and Hypertension in [place], [place] [address] [place] [address] Jaime Bull Jr., D.O. Chronic Kidney Disease (CKD), Stage 3b Glomerular Filtration Rate (GFR) 30 To 44 (HCC) (Primary Dx); Hyperparathyroidism Renal Secondary (HCC); Anemia Of Chronic Renal Failure 08/08/2023 3:30 PM PROGRAM MANAGEMENT INTERN External Outreach Division of Nephrology and Hypertension in [place], [place] [address] [place] [address] Jaime Bull Jr., D.O. Chronic Kidney Disease [...] Comments Blood Pressure 146/80 09/26/2023 8:04 AM PROGRAM MANAGEMENT INTERN Pulse 93 09/26/2023 8:04 AM PROGRAM MANAGEMENT INTERN Temperature - - Respiratory Rate 14 11/06/2013 8:15 AM PROGRAM MANAGEMENT INTERN Vital sign result from Clinical Notes. Oxygen Saturation - - Inhaled Oxygen Concentration - - Weight 87.9 kg (193 lb 12.6 oz) 09/26/2023 8:04 AM PROGRAM MANAGEMENT INTERN Height 177.8 cm (5' 10) 09/26/2023 8:0 4 AM PROGRAM MANAGEMENT INTERN Body Mass Index 27.81 09/26/2023 8:04 AM PROGRAM MANAGEMENT INTERN Plan of Treatment Health Maintenance Due Date [...] history exists Medical Devices Implanted Type Area Pecan Grower Device Identifier Shelf Expiration Date Model / Serial / Lot Conversions - Default Historical Implant Device Implanted:2015 (Quantity not on file) Hip Implant Description:Device Status Te xt - Hip Imp.
== END 2023-09-26 09:00 | disposition home or self-care (01) ==
LOC: NFLDREF 09-28 13:18
PROVIDERS: PCP Family Medicine; Referring Provider Family Medicine; Visit Provider Internal Medicine Nephrology
DX: N18.30 Chronic kidney disease, stage 3 unspecified (principal); N39.0 Urinary tract infection, site not specified; N31.2 Flaccid neuropathic bladder, not elsewhere classified; D63.1 Anemia in chronic kidney disease; R19.00 Intra-abdominal and pelvic swelling, mass and lump, unspecified site; N32.3 Diverticulum of bladder; I48.0 Paroxysmal atrial fibrillation; R19.09 Other intra-abdominal and pelvic swelling, mass and lump; B96.5 Pseudomonas (aeruginosa) (mallei) (pseudomallei) as the cause of diseases classified elsewhere
CPT/HCPCS: 80069; 82043; 82306; 82310; 82570; 82728; 83520; 83540; 83550; 83970; 84165; 84450; 84460; 84550; 86334; 87086; 87186

== ENCOUNTER 2023-09-26 12:45 | Outpatient (CLI) | payer MEDICARE, BC, SELFPAY ==
--- OUTSIDE RECORDS SUMMARY | 2023-09-26 12:48 | XMS_ITS | Encounter Summary ---
Author Name Unknown Organization [facility] Address [address] [place] [address] Care Team Providers Care Security System Sales Consultant Name Role Phone Unavailable Primary Care Provider Unavailabl e Reason for Visit * Appointment Request (Routine) - Closed Specialty Diagnoses / Procedures Referred By Mira ricci Referred To Contact Nephrology and Hypertension Anselmo Escamilla M.D. [address] [place] [address] Referral ID Status Reason Start Date Expiration Date Visits Re quested Visits Authorized [id number] Closed 07/13/2023 07/12/2024 1 1 Encounter Details Date Type Department Care Team (Latest Contact Info) Description 08/08/2023 3:30 PM TIRE MOLD TESTER External Outreach Division of Nephrology and Hypertension in [place], [place] [address] [place] [address] Jaime Bull Jr., D.O. [address] [place] [address] Chronic Kidney Disease (CKD), Stage 3b Glomerular Filtration Rate (GFR) 30 To 44 (HCC) (Primary Dx); Gammopathy Monoclonal Nonspecific; Anemia Of Chronic Renal Failure; Hyperparathyroidism Renal Secondary (HCC); Cystitis Unspecified Without Hematuria Social History Tobacco Use Types Packs/Day Years Used Date Smoking Tobacco: Never Nutrition Answer Date Recorded Nutrition: EVOO Fat Source Unknown 03/30 Nutrition: Servings of Fruits/Vegetables per Day Not on file 2021 Dental Answer Date Recorded Dental: Regular Dentist Unknown 03/30/20 21 Sex and Gender Information Value Date Recorded Sex Assigned at Not on file Gender Identity Not on file Sexual Orientation Not on file documented as of this encounter Last Filed Vital Signs Vital Sign Reading Time Taken Comments Blood Pressure 138/52 08/08/2023 1:53 PM TIRE MOLD TESTER Pulse 78 08/08/2023 1:53 PM TIRE MOLD TESTER Temperature - - Respiratory Rate - - Oxygen Saturation - - Inhaled Oxygen Concentration - - Weight 89.8 kg (197 lb 15.6 oz) 08/08/2023 1:53 PM TIRE MOLD TESTER Height 177.8 cm (5' 10) 08/08/2023 1:53 PM TIRE MOLD TESTER Body Mass Index 28.41 08/08/2023 1:53 PM TIRE MOLD TESTER documented in this encounter Progress Notes * Jaime Bull Jr., D.O. - 08/08/2023 3:30 PM CST Referring Provider: DR Francine Latham SUBJECTIVE REASON FOR VISIT [place] out reach [facility] Consultation management regards CKD HISTORY OF PRESENT ILLNESS Mr. Hunt is a 88 y.o. male who presents with a longstanding history of CKD, which is evident from reviewing his chart, showing a serum creatinine of 1.3-1.4 mg/dL preceding a dramatic event in October of 2018. He presented to the [facility] feeling poorly with a serum calcium level of over 15. His serum creatinine was 4.7 mg/dL. His PTH and PTH RP were suppressed, he had no increase levelof DANIELLA, his CT chest did not show any adenopathy or findings in his pulmonary parenchyma, he was found to have a right iliac fossa lesion which was of mixed density, and was 5.6 x 6.3 cm. This was biopsied and showed only histiocytes and macrophages, without any evidence of malignancy. His calcium returned to normal with IV fluids, pamidronate, and calcitonin. At the time the patient had been heavily utilizing vitamin-D and calcium, since that time his serum calcium level has returned to normal. However his serum creatinine remained elevated in the 1.8-2 mg/dL range. 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 Ultimately underwent bone marrow aspiration with the 3% plasma cell documentation, he continuesto follow with a regional oncology team. Fortunately over the past several years now he has not hadany change in his monoclonal protein which is quantified at 0.3 g. He has had no B type symptoms, no bone pain, calcium levels have been excellent, he has been free of any lytic lesions. 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 He is now doing a bladder catheterization regimen, 4 times daily, wherehe drains roughly 4-500 cc at each drainage. Been free of diabetes mellitus and hypertension, he is never had urolithiasis. His father suffered bladder cancer, but no other renal diseases or disorders. Has not used any NSAIDs and has been warned off of these. He is not had any other connective tissue symptoms or gout issues. 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 No episodes of gross hematuria, no lower extremity swelling, no cardiovascular or cerebrovascular symptomatology appetite energy and overall sense of well- being are intact. Past medical history significant for: 1. Bladder outlet dysfunction requires bladder self catheterization 2. Monoclonal gammopathy of unknown significance 3. Paroxysmal atrial fibrillation with rapid ventricular response 4. Frequent urinary tract infections 5. CKD stage IIIB with a baseline serum creatinine of 1.5 mg/dL 6. Prior history of hypercalcemia 7. Right iliac fossa mass 8. Prior history of anemia related to chronic renal disease 9. Allergic rhinitis Current Outpatient Medications: aspirin [address] tablet, Take 81 mg by mouth daily., Disp: , Rfl: multivitamin capsule, Take 1 capsule by mouth daily., Disp: , Rfl: zinc gluconate 50 mg tablet, Take 50 mg by mouth daily with breakfast., Disp: , Rfl: REVIEW OF SYSTEMS All other systems reviewed and are negative. OBJECTIVE BP (!) 138/52 Pulse 78 Ht 177.8 cm Wt 89.8 kg BMI 28.41 kg/m?? PHYSICAL EXAMINATION General: Awake alert oriented HEENT: CRISTAL, EOMI, Mucous membranes moist, no oral lesions Neck: No Masses, No Bruits Lungs: Clear to ascultation Heart: Irregular rhythm, No Murmurs or rubs Abdomen: Soft, Non-tender Extremities: No cyanosis, No clubbing: No edema Neuro: Cranial Nerves intact, Gait is normal, strength grossly normal Skin: no suspicious lesions identified Psychiatric: Normal affect DIAGNOSTICS Note serum creatinine 1.6 mg/dL, normal chemistries, monoclonal protein 0.55 grams/deciliter, monoclonal IgG lambda paraprotein, hemoglobin 13.3 ASSESSMENT / PLAN #1 Chronic Kidney Disease (CKD), Stage 3b Glomerular Filtration Rate (GFR) 30 To 44 (HCC) His CKD is multifactorial, contributed to by his acute kidney injury with exogenous hypercalcemia in 2019. He additionally has nephrosclerosis from his bladder outlet dysfunction likely mild outlet obstruction. Additionally, suspect there could be some parenchymal injury risk from his paraprotein. Going forward: 1. From a diagnostic perspective: We will check CT of the abdomen and pelvis regarding his prior right pelvic mass to ensure there is no issues with respect to ureteral compression 2. We will monitor his paraprotein levels going forward, and I will see him on a 6 monthly basis From a therapeutic perspective: 1. Goal blood pressures less than 130s over 80s which have been achieved 2. No NSAIDs or Pugh 2 inhibitors 3. Use acetaminophen based pain relief strategies only 4. Stay well hydrated with least 50 oz of water per day 5 continue with 4 times daily bladder catheterization #2 Gammopathy Monoclonal Nonspecific We will continue to monitor, no evidence of secondary manifestations which would suggest myeloma transformation. #3 Anemia Of Chronic Renal Failure This is improved dramatically, he is essentially with a normal hemoglobin at 13.3. #4 Hyperparathyroidism Renal Secondary (HCC) We will continue to monitor his calcium phosphorus and PTH levels, his calcium level is excellent. #5 Cystitis Unspecified Without Hematuria He will continue his bladder self catheterization regimen #6 Right iliac mass We will have her CT scan done to reassess this as mentioned above. Total time: 1 hour and 10 minutes Counseling Time: 50 minutes Jaime Bull Jr., D.O. MOLD TESTER documented in this encounter Plan of Treatment Not on file documented as of this encounter Visit Diagnoses Diagnosis Chronic Kidney Disease (CKD), Stage 3b Glomerular Filtration Rate (GFR) 30 To 44 (HCC)- Primary Gammopathy Monoclonal Nonspecific Anemia Of Chronic Renal Failure Hyperparathyroidism Renal Secondary (HCC) Cystitis Unspecified Without Hematuria documented in this encounter
--- OUTSIDE RECORDS SUMMARY | 2023-09-26 12:48 | XMS_ITS | Encounter Summary ---
Author Name Unknown Organization [facility] Address [address] [place] [address] Care Team Providers Care Backend Tester Name Role Phone Unavailable Primary Care Provider Unavailabl e Reason for Visit * Appointment Request (Routine) - Closed Specialty Diagnoses / Procedures Referred By Mira ricci Referred To Contact Nephrology and Hypertension Referral ID Status Reason Start Date Expiration Date Visits Re quested Visits Authorized [id number] Closed 09/08/2023 09/07/2024 1 1 Encounter Details Date Type Department Care Team (Latest Contact Info) Description 09/26/2023 8:00 AM INTER FOLD ROLL CUTTER External Outreach Division of Nephrology and Hypertension in [place], [place] [address] [place] [address] Jaime Bull Jr., D.O. [address] [place] [address] Chronic Kidney Disease (CKD), Stage 3b Glomerular Filtration Rate (GFR) 30 To 44 (HCC) (Primary Dx); Hyperparathyroidism Renal Secondary (HCC); Anemia Of Chronic Renal Failure Social History Tobacco Use Types Packs/Day Years [...] Sign Reading Time Taken Comments Blood Pressure 146/80 09/26/2023 8:04 AM INTER FOLD ROLL CUTTER Pulse 93 09/26/2023 8:04 AM INTER FOLD ROLL CUTTER Temperature - - Respiratory Rate - - Oxygen Saturation - - Inhaled Oxygen Concentration - - Weight 87.9 kg (193 lb 12.6 oz) 09/26/2023 8:04 AM INTER FOLD ROLL CUTTER Height 177.8 cm (5' 10) 09/26/2023 8:04 AM INTER FOLD ROLL CUTTER Body Mass Index 27.81 09/26/2023 8:04 AM INTER FOLD ROLL CUTTER documented in this encounter Progress Notes * Jaime Bull Jr., D.O. - 09/26/2023 8:00 AM CST Referring Provider: No primary care provider on file. SUBJECTIVE REASON FOR VISIT [place] out reach CKD Follow-up regards prior episode of acute kidney injury, now CKD stage IIIA, prior hypercalcemia, monoclonal gammopathy unknown significance right pelvis lesion HISTORY OF PRESENT ILLNESS Mr. Diaz is a 57 y.o. male who presents with the above matters. There was some confusion following her last visit, he would interacted with his son who is a general surgeon, phone number [phone]. There were some questions asked by his son regarding why the CT scan and further blood work was necessary. This spun into a difficult situation and the patient decided to start over. 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 He is feeling well in all respects and has no constitutional complaints. He is monitoring his signsand symptoms very carefully, and charting his urine output. There was some frustrating issues as well with his urinary catheters which unfortunately can not berefilled until 10 days before they are exhausted. And, furthermore, the most recent quantity of catheters was under calculated, and this caused quite a bit of frustration. We discussed the durable medical equipment issues, and his primary care team is working hard to correct this. No B type symptoms no constitutional complaints, some intermittent right lower rib pain. Past Medical History: Diagnosis Date Anemia 04/24/2018 Chronic Kidney Disease Stage 1 Glomerular Filtration Rate Greater Than 90 04/21/2020 Diabetes Mellitus Type 2 (HCC) 06/25/2010 Diabetes mellitus without mention of complication, type II or unspecified type, uncontrolled REVIEW OF SYSTEMS All other systems reviewed and are negative. OBJECTIVE There were no vitals taken for this visit. PHYSICAL EXAMINATION General: Awake alert oriented HEENT: CRISTAL, EOMI, Mucous membranes moist, no oral lesions Neck: No Masses, No Bruits Lungs: Clear to ascultation Heart: Regular Rate and Rhythm, No ectopy Murmurs or rubs Abdomen: Soft, Non-tender, no right upper quadrant tenderness, no mass palpable in the right iliac fossa, no bruits, no rebound Extremities: No cyanosis, No clubbing: No edema Neuro: Cranial Nerves intact, Gait is normal, strength grossly normal Skin: no suspicious lesions identified Psychiatric: Normal affect DIAGNOSTICS All pending today, I will contact him at [phone] ASSESSMENT / PLAN #1 Chronic Kidney Disease Stage 3A Glomerular Filtration Rate 45-60 (HCC) This is secondary to nephrosclerosis, prior acute kidney injury, and elevated blood pressure. Going forward: 1. Labs today 2. Goal blood pressure less than 140/90 3. No NSAIDs or Pugh 2 inhibitors 4. Follow-up every 6 months 5. I will contact him with results of the studies today, microalbuminuria. These results may prompta more approximate visit. 6. Continue bladder catheterization 5 times per day. #2 Hypertension And Chronic Kidney Disease Cupke6y Goal blood pressures have been achieved at home, according to his excellent log. He is currently onno antihypertensive agents. We will monitor this carefully, low-sodium diet is santo, he will stay active, avoid weight gain, continue with his usual regimen. #3 Paroxysmal atrial fibrillation Asymptomatic #4 Monoclonal gammopathy of unknown significance We will repeat his monoclonal protein studies. # 5. Right pelvis lesion CT scan regarding prior substantial size lesion which was biopsied and found to be histiocytes and inflammation. Total time: 45 minute Counseling Time: 30 minutes Jaime Bull Jr., D.O. 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
--- OUTSIDE RECORDS SUMMARY | 2023-09-26 12:48 | XMS_ITS | Referral Summary ---
Author Name Unknown Organization [facility] Address [address] [place] [address] Care Team Providers Care Fabric Worker Leader Name Role Phone Unavailable Primary Care Provider Unavailabl e Source Comments Patient records contain information from all sites at [facility]. For routine questions regarding patient records, call [phone] during business hours, M-F 8:00 AM - 5:00 PM Central Time. Record requests for emergency care only can be directed to [phone] at any time.[facility] Encounters Date Type Department Care Team Description 09/26/2023 8:00 AM PATHOLOGY SUPERVISOR External Outreach Division of Nephrology and Hypertension in [place], [place] [address] [place] [address] Jaime Bull Jr., D.O. Chronic Kidney Disease (CKD), Stage 3b Glomerular Filtration Rate (GFR) 30 To 44 (HCC) (Primary Dx); Hyperparathyroidism Renal Secondary (HCC); Anemia Of Chronic Renal Failure 08/08/2023 3:30 PM PATHOLOGY SUPERVISOR External Outreach Division of Nephrology and Hypertension in [place], [place] [address] [place] [address] Jaime Bull Jr., D.O. Chronic Kidney Disease (CKD), Stage 3b Glomerular Filtration Rate (GFR) 30 To 44 (HCC) (Primary Dx); Gammopathy Monoclonal Nonspecific; Anemia Of Chronic Renal Failure; Hyperparathyroidism Renal Secondary (HCC); Cystitis Unspecified Without Hematuria from Last 3 Months Allergies Active Allergy Reactions Criticality Noted Date Comments Oxycodone Rash Low 04/28/2021 Medications Medication Sig Dispensed Refills Start Date End Date Status zinc gluconate 50 mg tablet Take 50 mg by mouth daily with breakfast. 0 Active aspirin [address] tablet Take 81 mg by mouth daily. 0 Active multivitamin capsule Take 1 capsule by mouth daily. 0 Active Active Problems Problem Noted Date Diagnosed Date Chronic Kidney Disease (CKD) , Stage 3b Glomerular Filtration Rate (GFR) 30 To 44 08/08/2023 Gammopathy Monoclonal Nonspecific 08/08/2023 Anemia Of Chronic Renal Failure 08/08/2023 Hyperparathyroidism Renal Secondary 08/08/2023 Cystitis Unspecified Without Hematuria 3 Social History Tobacco Use Types Packs/Day Years [...] on file Sexual Orientation Not on file Last Filed Vital Signs Vital Sign Reading Time Taken Comments Blood Pressure 146/80 09/26/2023 8:04 AM PATHOLOGY SUPERVISOR Pulse 93 09/26/2023 8:04 AM PATHOLOGY SUPERVISOR Temperature - - Respiratory Rate 14 11/06/2013 8:15 AM PATHOLOGY SUPERVISOR Vital sign result from Clinical Notes. Oxygen Saturation - - Inhaled Oxygen Concentration - - Weight 87.9 kg (193 lb 12.6 oz) 09/26/2023 8:04 AM PATHOLOGY SUPERVISOR Height 177.8 cm (5' 10) 09/26/2023 8:0 4 AM PATHOLOGY SUPERVISOR Body Mass Index 27.81 09/26/2023 8:04 AM PATHOLOGY SUPERVISOR Plan of Treatment Not on file Medical Devices Implanted Type Area Harbormaster Device Identifier Shelf Expiration Date Model / Serial / Lot Conversions - Default Historical Implant Device Implanted:2015 (Quantity not on file) Hip Implant Description:Device Status Te xt - Hip Imp.
--- OUTSIDE RECORDS SUMMARY | 2023-09-26 12:48 | XMS_ITS ---
Author Name Unknown Organization [facility] Address [address] [place] [address] Care Team Providers Care Compensator Worker Name Role Phone Unavailable Unavailable Unavailable Surgery Details Not on file Complications Check Surgery Details section. Procedure Estimated Blood Loss Check Surgery Details section. Procedure Findings Check Surgery Details section. Procedure Specimens Taken Check Surgery Details section.
--- OUTSIDE RECORDS SUMMARY | 2023-09-26 12:48 | XMS_ITS | Clinical Summary ---
Author Name Unknown Organization [facility] Address [place], [place] [address] Care Team Providers Care Promotional Representative Name Role Phone Cruz Lemon MD Unavailable [phone] Fredy Brizuela Unavailable Anselmo Escamilla MD Primary Care Provider + Allergies Active Allergy Reactions Criticality Noted Date Comments Amoxicillin Rash 12/15/2021 Oxycodone Rash 07/03/2007 Medications Medication Sig Dispensed Refills Start Date End Date Status zinc sulfate 50 mg zinc (220 mg) capsule Daily 0 Act darian povidone-iodine 10% (BETADINE) 10 % external solution Apply topically to affected area(s). 0 05/05/2021 Active Catheter 14-16 Fr- miscIndications:BPH with urinary obstruction As directed. coudet tip, 60 Each 2 05/12/2021 Active cholecalciferol (Vitamin D) 1,000 unit tablet Take 1 Tablet (1,000 units) by mouth once daily. 0 12/15/2021 Active Active Problems Problem Noted Date Diagnosed Date Thoracic aortic ectasia 05/07/2021 Stage 3b chronic kidney disease 11/28/2018 Elevated blood pressure reading 11/28/2018 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 019 MGUS (monoclonal gammopathy of unknown significa nce) 11/28/2018 History of hypercalcemia 10/24/2018 Acute renal failure (ARF) 10/24/2018 Generalized osteoarthrosis, unspecified site Sciatica 01/15/2009 Overview: Right L5-S1: only numbness right foot Routine general medical exam ination at a health care facility 12/24/2008 Overview: Has declined colonoscopy (bro with Colon Ca) Lipids: 188 tot/ 105 LDL 2000 PSA: 0.1 2000 Allergic rhinitis, cause unspecified Immunizations Name Administration Dates Next Due AMB Influenza, IIV3 (Age >=3 years)(Flu Clinic Only) 08/26/2010,09/12/2008 AMB Influenza, IIV4 PF (=>6 mos Flulaval,Fluzone Fluarix)(Flu Clinic Only) 07/18/2019 Amb Influenza, Inactivated A IIV4 (Age 65+ Years) Preserv Free 06/23/2020 Influenza, High-dose Inactivated 08/31/2018 Influenza, IIV3 (Age 6-35 mos) 08/19/2009 Influenza, IIV3 (Age >=3 years) 08/06/20 15,08/08/2014,08/02/2013,2012,07/05/2012,08/19/2009,07/03/2007,0 10/10/2006,06/23/2004,08/20/2003 Influenza, IIV4 08/04/2018 Influenza, Inactivated AIIV4 (Age 65+ Years) Preserv Free 05/19/2021 Influenza, Whole Virus 08/07/2017 Pneumococcal Poly,23-Valent (Pneumovax) 12/24/2008 Td, Preservative Free (age > = 7 Years) 03/10/2009 Tdap 02/06/2013 Zoster (Zostavax-ZVL, live) 01/15/2009 Family History Medical History Relation Name Comments Cancer-colon Brother Jonny Cancer Father Mitch Bladder Other Sister Cha Parkinson's Anesthesia Problem No Family History Blood Disease No Family History Relation Name Status Comments Brother Jonny Alive Father Mitch (Age 94) Mother Rosalind (Age 88) Sister Cha (Age 79) Parkinson' s Social History Tobacco Use Types Packs/Day Years Used Date Smoking Tobacco: Never Smokeless Tobacco: Never Tobacco Cessation:Counseling Given: Yes Alcohol Use Standard Drinks/Week Comments Yes 1.7 (1 standard drink = 0.6 oz p ure alcohol) occasional wine PHQ-2 Answer Date Recorded PHQ-2 TOTAL SCORE 0 2021 Social Connections Answer Date Recorded Frequency of Communication with Friends and Fami ly Not on file 09/04/2021 Financial Resource Strain Answer Date R ecorded Difficulty of Paying Living Expenses Not on file 09/04/2021 Difficulty of Paying Living Expenses Not on file 09/04/2021 Sex and Gender Information Value Date Recorded Sex Assigned at Not on file Gender Identity Not on file Sexual Orientation Not on file Obstetrics History Last Filed Vital Signs Vital Sign Reading Time Taken Comments Blood Pressure 136/81 09/29/2022 9:47 AM AIRCRAFT CABIN CLEANER Pulse 78 09/29/2022 9:47 AM AIRCRAFT CABIN CLEANER Temperature 36.7 ??C (98.1 ??F) 05/19/2021 1 2:41 PM CDT Respiratory Rate 16 10/29/2018 4:00 PM AIRCRAFT CABIN CLEANER Oxygen Saturation 97% 09/29/2022 9:47 AM AIRCRAFT CABIN CLEANER Inhaled Oxygen Concentration - - Weight 90.6 kg (199 lb 11.2 oz) 09/29/2022 9:47 AM AIRCRAFT CABIN CLEANER Height 180 cm (5' 10.87) 02/27/2019 2:21 PM CDT Body Mass Index 27.96 02/27/2019 2:21 PM CDT Plan of Treatment Health Maintenance Due Date Last Done Comments Zoster (shingles) series for age 50+ (2 of 3) 03/12/2009 01/15/2009 Pneumococcal series for age 65+ (2 of 2 - PCV) 12/24/2009 12/24/2008 Medicare Wellness for age 65+ 02/06/2014 02/06/2013 BMI (ht and wt on same day) for age 18+ 02/28/2020 02/27/2019, 01/08/2019, 11/29/2018, Additional history exists Depression screening for age 12+ 04/01/2022 04/01/2021, 2021, 03/27/2021, Additional history exists Tetanus booster 02/06/2023 02/06/2013, 03/10/2009 COVID-19 vaccine series () 05/05/2023 08/17/2021, 11/15/2020, 10/18/2020 Influenza for age 65+ 05/05/2023 05/19/2021 , 06/23/2020, 07/18/2019, Additional history exists Tdap Completed 02/06/2013 Advance Directives Documents on File Type Date Recorded Patient Collar Tacker Expl anation Healthcare Directive 10/25/2018 6:11 PM 02 MAY 2003 Latest Code Status on File Code Status Date Activated Date Inactivated Comments Full Code 10/24/2018 2:26 PM 10/29/2018 7:06 PM Question Answer Comments Code Status Discussion: Discussed Care Teams Promotional Representative Relationship Specialty Start Date End Date Anselmo Escamilla MD [address] [place] [address] PCP - General Family Practice 07/08/21 Cruz Lemon MD [address] [place] [id number] Ophthalmology Surgery 02/06/13 Ferdy Brizuela [address] [place] [id number] Ophthalmology Surgery 02/06/13
--- OUTSIDE RECORDS SUMMARY | 2023-09-26 12:48 | XMS_ITS | Clinical Summary ---
Author Name Unknown Organization [facility] Address [address] [place] [address] Care Team Providers Care Hull Builder Name Role Phone Unavailable Primary Care Provider Unavailabl e Source Comments Patient records contain information from all sites at [facility]. For routine questions regarding patient records, call [phone] during business hours, M-F 8:00 AM - 5:00 PM Central Time. Record requests for emergency care only can be directed to [phone] at any time.[facility] Allergies Active Allergy Reactions Criticality Noted Date [...] Secondary 08/08/2023 Cystitis Unspecified Without Hematuria 3 Encounters Date Type Department Care Team Description 09/26/2023 8:00 AM MIDWIFE External Outreach Division of Nephrology and Hypertension in [place], [place] [address] [place] [address] Jaime Bull Jr., D.O. Chronic Kidney Disease (CKD), Stage 3b Glomerular Filtration Rate (GFR) 30 To 44 (HCC) (Primary Dx); Hyperparathyroidism Renal Secondary (HCC); Anemia Of Chronic Renal Failure 08/08/2023 3:30 PM MIDWIFE External Outreach Division of Nephrology and Hypertension in [place], [place] [address] [place] [address] Jaime Bull Jr., D.O. Chronic Kidney Disease (CKD), Stage 3b Glomerular Filtration Rate (GFR) 30 To 44 (HCC) (Primary Dx); Gammopathy Monoclonal Nonspecific; Anemia Of Chronic Renal Failure; Hyperparathyroidism Renal Secondary (HCC); Cystitis Unspecified Without Hematuria from Last 3 Months Social History Tobacco Use Types Packs/Day Years [...] Comments Blood Pressure 146/80 09/26/2023 8:04 AM MIDWIFE Pulse 93 09/26/2023 8:04 AM MIDWIFE Temperature - - Respiratory Rate 14 11/06/2013 8:15 AM MIDWIFE Vital sign result from Clinical Notes. Oxygen Saturation - - Inhaled Oxygen Concentration - - Weight 87.9 kg (193 lb 12.6 oz) 09/26/2023 8:04 AM MIDWIFE Height 177.8 cm (5' 10) 09/26/2023 8:0 4 AM MIDWIFE Body Mass Index 27.81 09/26/2023 8:04 AM MIDWIFE Plan of Treatment Health Maintenance Due Date Last Done Comments DTaP,Tdap,and Td Vaccines (2 - Td or Tdap) 02/06/2023 02/06/2013, 03/10/2009 COVID-19 Vaccine (4 - 2022-2 4 season) 2023 08/17/2021, 11/15/2020, 10/18/2020 Depression Screening (Annual PHQ-2) 09/04/2023 Fall Risk Screen (Annual) 09/04/2023 Pneumococcal vaccine (65+ years) Completed 03/21/20 22, 12/24/2008 Zoster Vaccines Completed 07/12/2022, 08/05/2022, 01/15/2009 Influenza Vaccine Completed 06/02/2023, , 05/19/2021, Additional history exists Medical Devices Implanted Type Area Clay Plant Treater Device Identifier Shelf Expiration Date Model / Serial / Lot Conversions - Default Historical Implant Device Implanted:2015 (Quantity not on file) Hip Implant Description:Device Status Te xt - Hip Imp.
--- NOTE | 2023-09-26 13:00 | CRLHL7_ITS ---
For Patients: As a result of the Century Cures Act, medical imaging exams and procedure reports are released immediately into your electronic medical record. You may view this report before your referring provider. If you have questions, please contact your health care provider. INDICATION: Intra-abdominal and pelvic swelling TECHNIQUE: CT abdomen and pelvis without contrast. COMPARISON: None. FINDINGS: Lower chest: Posterior dependent atelectasis. Liver: Normal in size and attenuation. No masses. Gallbladder and bile ducts: Cholelithiasis. No biliary dilatation. Pancreas: Unremarkable. No mass or inflammation. Spleen: Normal in size. No masses. Adrenal glands: Normal in size. No nodules. Kidneys: Normal in size. Bilateral cysts. No solid masses, stones, or hydronephrosis. GI tract: Clinic diverticulosis without diverticulitis. Normal in caliber. No sign of mass or inflammation. Normal appendix. Vasculature: Unremarkable. Lymph nodes: No lymphadenopathy. Abdominal wall/Omentum/Peritoneum: Unremarkable. No sign of mass or infiltration. No free air or significant free fluid. Pelvis: Patulous urinary bladder. Bones: Bilateral total hip arthroplasties.Approximately 12 x 14 x 15 cm soft tissue mass surrounding the right acetabulum and extending along the right iliacus muscle. The mass involves the anterior acetabulum do a break in the cortex on image 25 of series 6. IMPRESSION: 1. 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 2. Cholelithiasis. Please note that all CT scans at this facility use dose modulation, iterative reconstruction, and/or weight-based dosing when appropriate to reduce radiation dose to as low as reasonably achievable. Dictated by Deandre Boles MD @ 09/26/2023 4:25:35 PM (Electronically Signed)
== END 2023-09-26 12:46 | disposition home or self-care (01) ==
LOC: CT 12:46
PROVIDERS: PCP Family Medicine; Visit Provider Internal Medicine Nephrology
DX: R19.00 Intra-abdominal and pelvic swelling, mass and lump, unspecified site (principal); K80.20 Calculus of gallbladder without cholecystitis without obstruction
CPT/HCPCS: 74176; 80069; 82043; 82306; 82310; 82570; 82728; 83520; 83540; 83550; 83970; 84165; 84450; 84460; 84550; 86334; 87086; 87186

== ENCOUNTER 2023-12-02 06:06 | Emergency (ER) | payer MEDICARE, BC, SELFPAY ==
[2023-12-02 06:24] VITALS: BP 146/60; PULSE 78; RESP 16; TEMP 36.2; O2SAT 93; BMI 27.2
--- NOTE | 2023-12-02 06:25 | ED.GENADULT ---
HPI - General Adult General Chief complaint: Urogenital Problems, Male <Daniel Butterfield MD - Last Filed: 12/02/23 07:49> Stated complaint: cant pee <Daniel Butterfield MD - Last Filed: 12/02/23 07:49> Time Seen by Provider: 12/02/23 06:25 <Daniel Butterfield MD - Last Filed: 12/02/23 07:49> History of Present Illness HPI narrative: Patient is a 88-year-old gentleman who normally self catheterizes himself due to a chronic urinary obstruction who denies unable to get his catheter in. Patient has no dysuria. He has chronic kidney disease stage 3. He states he has been eating and drinking normally and everything actually has been moving along fine with the exception that he just can not get the catheter in. Review of his past medical history shows that he has a flaccid neurogenic bladder as well as intra-abdominal and pelvic swelling. <Daniel Butterfield MD - Last Filed: 12/02/23 07:49> Related Data Home medications: Home Medications Medication Instructions Recorded Confirmed zinc 50 mg tablet 50 mg PO QDAY 03/21/22 12/02/23 cholecalciferol (vitamin D3) 50 50 mcg PO QDAY 06/27/22 12/02/23 mcg (2,000 unit) capsule diphenhydramine 25 1 tab PO QHS PRN 06/27/22 10/06/23 mg-acetaminophen 500 mg tablet (Tylenol PM Extra Strength) Previous Rx's Medication Instructions Recorded fluticasone propionate 50 1 spray intranasal BID #16 grams 06/02/23 mcg/actuation nasal spray,suspension (Flonase Allergy Relief) <Daniel Butterfield MD - Last Filed: 12/02/23 07:49> Allergies/adverse reactions: Allergies Allergy/AdvReac Type Severity Reaction Status Date / Time oxycodone Allergy Intermediate Rash Verified 10/06/23 07:46 <Daniel Butterfield MD - Last Filed: 12/02/23 07:49> Review of Systems Status of ROS: Reports: 6 or more systems reviewed and unremarkable except as noted in History and below <Daniel Butterfield MD - Last Filed: 12/02/23 07:49> [facility] Medical History: Medical History Thoracic aortic ectasia ?I77.810 - Thoracic aortic ectasia (ICD-10) Stage 3 chronic kidney disease ?N18.30 - Chronic kidney disease, stage 3 unspecified (ICD-10) Retention of urine ?R33.9 - Retention of urine, unspecified (ICD-10) Paroxysmal atrial fibrillation with rapid ventricular response (04/29/21) ?I48.0 - Paroxysmal atrial fibrillation (ICD-10) Monoclonal gammopathy of unknown significance (MGUS) ?D47.2 - Monoclonal gammopathy (ICD-10) History of vitamin D deficiency ?Z86.39 - Personal history of other endocrine, nutritional and metabolic disease (ICD-10) Frequent urinary tract infections ?N39.0 - Urinary tract infection, site not specified (ICD-10) 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 - Flaccid neuropathic bladder, not elsewhere classified (ICD-10) 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 - Diverticulum of bladder (ICD-10) Benign prostatic hyperplasia ?N40.0 - Benign prostatic hyperplasia without lower urinary tract symptoms (ICD-10) 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 ?N18.30 - Chronic kidney disease, stage 3 unspecified (ICD-10) ?D63.1 - Anemia in chronic kidney disease (ICD-10) Allergic rhinitis ?J30.9 - Allergic rhinitis, unspecified (ICD-10) Abnormal blood level of cobalt ?R79.0 - Abnormal level of blood mineral (ICD-10) <Daniel Butterfield MD - Last Filed: 12/02/23 07:49> Surgical History: Surgical History History of phacoemulsification of cataract of right eye with intraocular lens implantation ?Z98.41 - Cataract extraction status, right eye (ICD-10) ?Z96.1 - Presence of intraocular lens (ICD-10) History of total replacement of both hip joints (2006) ?Z96.643 - Presence of artificial hip joint, bilateral (ICD-10) History of radial keratotomy (1997) ?Z98.890 - Other specified postprocedural states (ICD-10) History of open reduction and internal fixation (ORIF) procedure (1949) ?Z98.890 - Other specified postprocedural states (ICD-10) History of appendectomy ?Z90.49 - Acquired absence of other specified parts of digestive tract (ICD-10) <Daniel Butterfield MD - Last Filed: 12/02/23 07:49> Family History: Family History Father Bladder cancer Brother Colon cancer Sister Parkinson disease <Daniel Butterfield MD - Last Filed: 12/02/23 07:49> Social History: Social History Narrative: , 3 kids, 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 Non-smoker Social EtOH Smoking Status: Never smoker Do you use any of these nicotine containing products: None Second hand tobacco smoke exposure: No How often do you have a drink containing alcohol: 2-3 times a week Alcohol type: wine How many standard drinks containing alcohol do you have on a typical day: 1 or 2 How often do you have six or more drinks on one occasion: Weekly AUDIT-C Alcohol total score: 6 Non-prescribed substance use: denies use Caffeine: Yes Little interest or pleasure in doing things: not at all Feeling down, depressed, or hopeless: not at all service: No <Daniel Butterfield MD - Last Filed: 12/02/23 07:49> Exam Narrative: Exam Narrative: EXAM GENERAL: Patient appears comfortable and well. EYES: No scleral icterus. LYMPH: No supraclavicular or cervical lymphadenopathy. SKIN: Visible skin seen during exam normal or with benign process only. EXT: No dependent lower extremity pedal edema. HEART: Irregular pulse. No other findings. LUNGS: Clear to auscultation bilaterally with no crackles or wheezes. ABD: Soft, non tender, non distended. PSYCH: Good eye contact, speech is not pressured. <Daniel Butterfield MD - Last Filed: 12/02/23 07:49> Const: Vital Signs, click to edit/add: Vital Signs - 24 hr 12/02/23 06:24 Temperature 97.2 F L Pulse Rate [Pulse Oximeter] 78 Respiratory Rate 16 Blood Pressure [Ri ght Upper Arm] 146/60 H Pulse Oximetry 93 Oxygen Delivery Me thod Room Air <Daniel Butterfield MD - Last Filed: 12/02/23 07:49> Vital Signs, click to edit/add: Vital Signs - 24 hr 12/02/23 06:24 Temperature 97.2 F L Pulse Rate [Pulse Oximeter] 78 Respiratory Rate 16 Blood Pressure [Ri ght Upper Arm] 146/60 H Pulse Oximetry 93 Oxygen Delivery Me thod Room Air <Lisa Rincon MD - Last Filed: 12/02/23 08:55> Course Course ED Course: Patient seen examined. We are unable to place Motley catheter. At this time we are looking into transferred to the care of urologist. <Daniel Butterfield MD - Last Filed: 12/02/23 07:49> Reevaluation(s) Time of Reevaluation #1: 08:34 <Lisa Rincon MD - Last Filed: 12/02/23 08:55> Reevaluation #1: Did speak with Henrry YOUSIF from [place]. He did page out Urology, spoke with him at 8:47 a.m.. They agree that urology needs to see the patient, will try potentially scope assisted catheter placement and if not able to, suprapubic catheter. Dr. Rashid Moscoso accepts on behalf of [facility] ED. patient is requesting to go via personal vehicle, he is stable, is comfortable at this time. <Lisa Rincon MD - Last Filed: 12/02/23 08:55> Vital Signs Vital signs: Initial Vital Signs Temperature 97.2 F L 12/02/23 06:24 Temperature Source Temporal Artery Scan 12/02/23 06:24 Pulse Rate 78 12/02/23 06:24 Pulse Rhythm Regular 12/02/23 06:24 Pulse Strength 3+ Normal 12/02/23 06:24 Respiratory Rate 16 12/02/23 06:24 Blood Pressure 146/60 H 12/02/23 06:24 Blood Pressure Mean 88 12/02/23 06:24 Blood Pressure Position Sitting 12/02/23 06:24 Pulse Oximetry 93 12/02/23 06:24 Oxygen Delivery Method Room Air 12/02/23 06:24 Vital Signs Temperature 97.2 F L 12/02/23 06:24 Pulse Rate 78 12/02/23 06:24 Respiratory Rate 16 12/02/23 06:24 Blood Pressure 146/60 H 12/02/23 06:24 Pulse Oximetry 93 12/02/23 06:24 Oxygen Delivery Method Room Air 12/02/23 06:24 Temperature 97.2 F L 12/02/23 06:24 Pulse Rate 78 12/02/23 06:24 Respiratory Rate 16 12/02/23 06:24 Blood Pressure 146/60 H 12/02/23 06:24 Pulse Oximetry 93 12/02/23 06:24 Oxygen Delivery Method Room Air 12/02/23 06:24 <Daniel Butterfield MD - Last Filed: 12/02/23 07:49> Initial Vital Signs Temperature 97.2 F L 12/02/23 06:24 Temperature Source Temporal Artery Scan 12/02/23 06:24 Pulse Rate 78 12/02/23 06:24 Pulse Rhythm Regular 12/02/23 06:24 Pulse Strength 3+ Normal 12/02/23 06:24 Respiratory Rate 16 12/02/23 06:24 Blood Pressure 146/60 H 12/02/23 06:24 Blood Pressure Mean 88 12/02/23 06:24 Blood Pressure Position Sitting 12/02/23 06:24 Pulse Oximetry 93 12/02/23 06:24 Oxygen Delivery Method Room Air 12/02/23 06:24 Vital Signs Temperature 97.2 F L 12/02/23 06:24 Pulse Rate 78 12/02/23 06:24 Respiratory Rate 16 12/02/23 06:24 Blood Pressure 146/60 H 12/02/23 06:24 Pulse Oximetry 93 12/02/23 06:24 Oxygen Delivery Method Room Air 12/02/23 06:24 Temperature 97.2 F L 12/02/23 06:24 Pulse Rate 78 12/02/23 06:24 Respiratory Rate 16 12/02/23 06:24 Blood Pressure 146/60 H 12/02/23 06:24 Pulse Oximetry 93 12/02/23 06:24 Oxygen Delivery Method Room Air 12/02/23 06:24 <Lisa Rincon MD - Last Filed: 12/02/23 08:55> Discharge Plan Discharge Clinical Impression: Neurogenic bladder <Daniel Butterfield MD - Last Filed: 12/02/23 07:49> Patient Disposition: [facility] <Daniel Butterfield MD - Last Filed: 12/02/23 07:49> Discharge Location: [facility] <Daniel Butterfield MD - Last Filed: 12/02/23 07:49> Condition: Stable <Daniel Butterfield MD - Last Filed: 12/02/23 07:49> Additional Instructions: Proceed to [facility] ER in [place]. <Daniel Butterfield MD - Last Filed: 12/02/23 07:49> Activity Level: No Restrictions <Daniel Butterfield MD - Last Filed: 12/02/23 07:49> No Restrictions <Lisa Rincon MD - Last Filed: 12/02/23 08:55> Discharge Diet: Regular <Daniel Butterfield MD - Last Filed: 12/02/23 07:49> Regular <Lisa Rincon MD - Last Filed: 12/02/23 08:55> Prescriptions: No Action cholecalciferol (vitamin D3) 50 mcg (2,000 unit) capsule 50 mcg PO QDAY diphenhydramine-acetaminophen [Tylenol PM Extra Strength] 25-500 mg tablet 1 tab PO QHS PRN fluticasone propionate [Flonase Allergy Relief] 50 mcg/actuation spray,suspension 1 spray intranasal BID Qty: 16 5RF Rx Instructions: administer into each nostril zinc 50 mg tablet 50 mg PO QDAY <Daniel Butterfield MD - Last Filed: 12/02/23 07:49> Follow Up/Referrals: Anselmo Escamilla MD [Primary Care Provider] - <Daniel Butterfield MD - Last Filed: 12/02/23 07:49> Stand Alone Forms: [facility] Info Instructions <Daniel Butterfield MD - Last Filed: 12/02/23 07:49>
--- NOTE | 2023-12-02 08:17 | ED.NURSE ---
Pt denies pain, bladder scan for ~350ml, ad writer unable to advance 16F coude catheter. updated, calling out for urology transfer.
[2023-12-02 09:23] VITALS: BP 126/93; PULSE 93; RESP 16; TEMP 36.5; O2SAT 93
--- NOTE | 2023-12-02 09:29 | ED.NURSE ---
Called [facility] for report, denied for ER to ER transfer.
== END 2023-12-02 09:30 | disposition short-term general hospital (02) ==
LOC: ED 09:12
PROVIDERS: Emergency Provider Internal Medicine; PCP Family Medicine
DX: N31.9 Neuromuscular dysfunction of bladder, unspecified (principal)
CPT/HCPCS: 99283; 99284; 99285

== ENCOUNTER 2024-01-30 07:51 | Outpatient (CLI) | payer MEDICARE, BC, SELFPAY ==
--- OUTSIDE RECORDS SUMMARY | 2024-01-31 12:40 | XMS_ITS | Clinical Summary ---
Author Organization [facility] Address [address] [place] [address] Care Team Providers Care Nursing Specialist Name Role Phone Elsewhere, Pcp Primary Care Provider Unavailabl e Source Comments Patient records contain information from all sites at [facility]. For routine questions regarding patient records, call [phone] during business hours, M-F 8:00 AM - 5:00 PM Central Time. Record requests for emergency care only can be directed to [phone] at any time.[facility] Allergies Active Allergy Reactions Criticality Noted Date Comments Amoxicillin Rash 12/15/2021 Oxycodone Rash Low 04/28/2021 Medications Medication Sig Dispensed Refills Start Date End Date Status zinc gluconate 50 mg tablet Take 50 mg by mouth daily with breakfast. Active multivitamin capsule Take 1 capsule by mouth daily. Active cholecalciferol, vitamin D3, 25 mcg (1,000 Unit) tablet Take 1,000 Units by mouth. 12/15/2021 Active tamsulosin (FLOMAX) 0.4 mg 24 hr capsule Take 1 capsule (0.4 mg total) by mouth daily. 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 40 capsule 01/11/2024 01/21/2024 Active Problems Problem Noted Date Diagnosed Date Chronic Kidney Disease (CKD) , Stage 3b Glomerular Filtration Rate (GFR) 30 To 44 08/08/2023 Gammopathy Monoclonal Nonspecific 08/08/2023 Anemia Of Chronic Renal Failure 08/08/2023 Hyperparathyroidism Renal Secondary 08/08/2023 Cystitis Unspecified Without Hematuria 3 Encounters Date Type Department Care Team Description 01/15/2024 Clinical Communication Department of Urology in [place], [place] [address] [place] [phone] Shirley Villanueva APRN, Susan.N.P., M.S.N. After Visit Question (Post cysto) 01/10/2024 3:45 PM CDT Office Visit Department of Urology in [place], [place] [address] [place] [phone] Shirley Villanueva APRN, C.N.P., M.S.N. Retention Urinary (Primary Dx) 01/09/2024 12:47 PM CDT - 01/09/2024 7:35 PM CDT Emergency [facility] Emergency Department [address] [place] [phone] Sweta Rivera M.D. 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 Faina Perez, R.Pawel. Retention Urinary 12/29/2023 11:00 AM CDT Office Visit Department of Urology in [place], [place] [address] [place] [phone] Shirley Villanueva APRN, C.N.P., M.S.N. Retention Urinary (Primary Dx) 12/26/2023 Orders Only Department of Urology in [place], [place] [address] [place] [phone] Shirley Villanueva APRN, Susan.N.P., M.S.N. 12/26/2023 Clinical Communication Department of Urology in [place], [place] [address] [place] [phone] Shirley Villanueva APRN, C.NDarlene, M.S.N. Message from patient; Nurse Assessment 12/13/2023 2:30 PM CDT Comprehensive Visit Department of Urology in [place], [place] [address] [place] [phone] Shirley Villanueva APRN, C.N.P., M.S.N. Retention Urinary 12/13/2023 10:30 AM CDT Procedure visit Department of Urology in [place], [place] [address] [place] [phone] Shirley Villanueva APRN, C.NFaby., M.S.N. Retention Urinary 12/13/2023 8:00 AM CDT Clinical Support [facility] in [place], [place] [address] [place] [phone] Silvano Key M.D. Halder, Spencer R RToney Retention Urinary 12/13/2023 7:23 AM CDT - 12/13/2023 11:59 PM CDT Hospital Encounter Department of Radiology, [facility], in [place], [place] [address] [place] [phone] Becki Prado M.D. Retention Urinary; Hyperplasia Prostate Benign Localized With Obstruction Discharge Disposition: Home or Self Care 12/11/2023 Clinical Communication Department of Urology in [place], [place] [address] [place] [phone] Silvano Key M.D. 12/08/2023 Clinical Communication Department of Urology in [place], [place] [address] [place] [phone] Shirley Villanueva APRN, C.N.Omar., M.S.N. 12/06/2023 9:26 AM CDT - 12/06/2023 1:56 PM CDT Emergency [facility] Emergency Department [address] [place] [phone] Adam Powell, P.A.-C. Retention Urinary (Primary Dx); Hyperplasia Prostate Benign Localized With Obstruction Discharge Disposition: Home or Self Care 12/04/2023 8:01 AM CDT - 12/04/2023 10:49 AM CDT Emergency [facility] Emergency Department [address] [place] [phone] Cj Flood M.D. Retention Urinary (Primary Dx); Neurogenic Bladder; Urinary Tract Infection Site Not Specified Discharge Disposition: Home or Self Care 12/02/2023 11:00 AM CDT - 12/02/2023 2:05 PM CDT Emergency [facility] Emergency Department [address] [place] [phone] Ramy Ramirez, PZeeshanAZeeshan-Susan. Neurogenic Bladder (Primary Dx); Urinary Tract Infection Site Not Specified Discharge Disposition: Home or Self Care 12/02/2023 Clinical Communication Department of Urology in [place], [place] [address] [place] [phone] Terra Junior M.D. 12/02/2023 Intake [facility] from Last 3 Months Social History Tobacco Use Types Packs/Day Years Used Date Smoking Tobacco: Never Smokeless Tobacco: Never Tobacco Cessation:Counseling Given: Not Answered Alcohol Use Standard Drinks/Week Comments Not Currently 0 (1 standard drink = 0.6 oz pur e alcohol) [facility] Utilities Answer Date Recorded In the past 12 months has e [employer], gas, oil, or water [employer] threatened to shut off services in your home? No 12/13/2023 Exercise Vital Sign Answer Date Recorde d On average, how many days pe r week do you engage in moderate to strenuous exercise (like a brisk walk)? 7 days 12/13/2023 On average, how many minutes do you engage in exercise at this level? 120 min 12/13/2023 Hunger Vital Sign Answer Date Recorded Within the past 12 months, y ou worried that your food would run out before you got the money to buy more. Never true 12/13/19 24 Within the past 12 months, t he food you bought just didn't last and you didn't have money to get more. Never true 12/13/2023 PRAPARE - Transportation Answer Date Re corded In the past 12 months, has l ack of transportation kept you from medical appointments or from getting medications? No 12/03 In the past 12 months, has l ack of transportation kept you from meetings, work, or from getting things needed for daily living? No 12/13/2023 Nutrition Answer Date Recorded On average, how many serving s of fruits and vegetables do you eat per day (serving size is equal to 1 cup or approximately the size of a tennis ball)? 3-5 12/13/2023 Dental Answer Date Recorded Dental: Regular Dentist Yes 12/13/19 Employment Answer Date Recorded Employment status Retired 12/13/2023 Housing Stability Answer Date Recorded What is your living situation today? I have a [facility] place to live 12/13/2023 Sex and Gender Information Value Date Recorded Sex Assigned at Male 12/13/2023 1:46 PM CDT Gender Identity Male 12/13/2023 1:46 PM CDT Sexual Orientation Straight 12/13/2023 1: 46 PM CDT Last Filed Vital Signs Vital Sign Reading Time Taken Comments Blood Pressure 150/98 01/09/2024 7:00 PM CDT Pulse 87 01/09/2024 7:15 PM CDT Temperature 36.5 ??C (97.7 ??F) 01/09/2024 1 2:53 PM CDT Respiratory Rate 18 01/09/2024 7:00 PM CDT Oxygen Saturation 96% 01/09/2024 7:15 PM CDT Inhaled Oxygen Concentration - - Weight 86.6 kg (190 lb 14.7 oz) 024 12:50 PM CDT Height 177.8 cm (5' 10) 09/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 [address] [place] [phone] Health Maintenance Due Date Last Done Comments DTaP,Tdap,and Td Vaccines (2 - Td or Tdap) 02/06/2023 02/06/2013, 03/10/2009 COVID-19 Vaccine (4 - 2022-2 4 season) 2023 08/17/2021, 11/15/2020, 10/18/2020 Depression Screening (Annual PHQ-2) 09/04/2023 Fall Risk Screen (Annual) 09/04/2023 Pneumococcal vaccine (65+ years) Completed 03/21/20, 12/24/2008 Zoster Vaccines Completed 07/12/2022, 05/2022, 01/15/2009 Influenza Vaccine Completed 06/02/2023, , 05/19/2021, Additional history exists Medical Devices Implanted Type Area Metal Casket Assembler Device Identifier Shelf Expiration Date Model / Serial / Lot Conversions - Default Historical Implant Device Implanted:2015 (Quantity not on file) Hip Implant Description:Device Status Te xt - Hip Imp. Procedures Procedure Name Priority Date/Time Associated Diagnosis Comments GI PATHOGEN PANEL, PCR, F Routine 01/09/2024 6:00 PM CDT HEPATIC FUNCTION PANEL, S STAT 01/09/2024 1:47 PM CDT MAGNESIUM, S STAT 01/09/2024 1:47 PM CDT BASIC METABOLIC PANEL, S/P STAT 01/09/2024 1:47 PM CDT CBC WITH DIFFERENTIAL, B STAT 01/09/2024 1:47 PM CDT URO CYSTOSCOPY (GENERAL) Routine 12/13/2023 10:30 AM CDT Retention Urinary US PROSTATE TRANSRECTAL RAD - Routine (most inpatients and all outpatients) 12/13/2023 9:00 AM CDT Retention Urinary Hyperplasia Prostate Benign Localized With Obstruction BASIC METABOLIC PANEL, S/P STAT 12/06/2023 11:10 AM CDT CBC WITH DIFFERENTIAL, B STAT 12/06/2023 11:10 AM CDT DIPSTICK, U STAT 12/04/2023 9:17 AM CDT HC OSMOLALITY ASSAY URINE STAT 12/04/2023 9:17 AM CDT PH, RANDOM, U STAT 12/04/2023 9:17 AM CDT MICROSCOPIC MANUAL STAT 12/04/2023 9: 17 AM CDT URINALYSIS WITH MICROSCOPIC STAT 12/04/2023 9:17 AM CDT BACTERIAL CULTURE, AEROBIC + SUSC, URINE STAT 12/04/2023 9:17 AM CDT BASIC METABOLIC PANEL, S/P STAT 12/04/2023 9:00 AM CDT CBC WITH DIFFERENTIAL, B STAT 12/04/2023 9:00 AM CDT HC URINALYSIS AUTO WO MICRO Routine 12/02/2023 12:29 PM CDT MICROSCOPIC MANUAL STAT 12/02/2023 11 :38 AM CDT DIPSTICK, U STAT 12/02/2023 11:38 AM CDT PH, U STAT 12/02/2023 11:38 AM CDT OSMOLALITY, U STAT 12/02/2023 11:38 AM CDT URINALYSIS WITH MICROSCOPIC STAT 12/02/2023 11:38 AM CDT BACTERIAL CULTURE, AEROBIC + SUSC, URINE STAT 12/02/2023 11:38 AM CDT BASIC METABOLIC PANEL, S/P STAT 12/02/2023 11:30 AM CDT CBC WITH DIFFERENTIAL, B STAT 12/02/2023 11:30 AM CDT from Last 3 Months Results * (ABNORMAL) GI Pathogen Panel, PCR, Feces (01/09/2024 6:00 PM CDT) Specimen Source STOOL 5:29 PM CDT DTL Campylobacter species Negative Negative 01/10/2024 5:29 PM CDT DTL C. difficile toxin Positive(A ) Negative 01/10/2024 5:29 PM CDT DTL Comment: A positive C. difficile result may reflect asymptomatic carriage or C. difficile-associated diarrhea. Plesiomonas shigelloides Negative Negative 01/10/2024 5:29 PM CDT DTL Salmonella species Negative Negative 2023 5:29 PM CDT DTL Vibrio species Negative Negative 01/10/2024 5:29 PM CDT DTL Vibrio cholerae Negative Negative 5:29 PM CDT DTL Yersinia species Negative Negative 01/10/20 5:29 PM CDT DTL Enteroaggregative E. coli (EAEC) Negative Negative 01/10/2024 5:29 PM CDT DTL Enteropathogenic E. coli (EPEC) Negative Negative 01/10/2024 5:29 PM CDT DTL Enterotoxigenic E. coli (ETEC) Positive(A ) Negative 01/10/2024 5:29 PM CDT DTL Shiga toxin producing E. coli Negative Negative 01/10/2024 5:29 PM CDT DTL Shigella/Enteroinvas darian E. coli Negative Negative 01/10/2024 5:29 PM CDT DTL Cryptosporidium species Negative Negative 01/10/2024 5:29 PM CDT DTL Cyclospora cayetanensis Negative Negative 01/10/2024 5:29 PM CDT DTL Entamoeba histolytica Negative Negative 01/10/2024 5:29 PM CDT DTL Giardia Negative Negative 01/10/2024 5:29 PM CDT DTL Adenovirus F40/41 Negative Negative 024 5:29 PM CDT DTL Astrovirus Negative Negative 01/10/2024 5:29 PM CDT DTL Norovirus GI/GII Negative Negative 01/10/20 24 5:29 PM CDT DTL Rotavirus Ag, F Negative Negative 4 5:29 PM CDT DTL Sapovirus Negative Negative 01/10/2024 5:29 PM CDT DTL Comment: ----ADDITIONAL INFORMATION---- This assay is performed using the FDA-cleared FilmArray GI Panel ([employer] Semi-Urgent This is a semi-urgen t result(RIDLEY) [facility] Stool 01/09/2024 6:00 PM CDT 01/10/2024 3:56 PM CDT Sweta Rivera M.D. LAB MICROBIOLOGY - GENERAL ORDERABLES [facility] [address] [place] [address], [facility] DTL [address] [facility] [address] [place] [address] * Hepatic Function Panel (01/09/2024 1:47 PM CDT) Bilirubin, Total, S 0.3 0.0 - 1.2 mg/dL 01/09/2024 2:49 PM CDT DTL Bilirubin, Direct, S <0.2 0.0 - 0.3 mg/dL 01/09/2024 2:49 PM CDT DTL Aspartate Aminotransferase (AST), S 23 8 - 48 U/L 01/09/2024 2:49 PM CDT DTL Alanine Aminotransferase (ALT), S 18 7 - 55 U/L 01/09/2024 2:49 PM CDT DTL Alkaline Phosphatase, S 57 40 - 129 U/L 01/09/2024 2:49 PM CDT DTL Albumin, S 3.9 3.5 - 5.0 g/dL 01/09/2024 2:49 PM CDT DTL Protein, Total, S 6.6 6.3 - 7.9 g/dL 01/09/2024 2:49 PM CDT DTL Blood (Blood, Venous) 01/09/2024 1:47 PM CDT 01/09/2024 2:25 PM CDT Carmen Montilla P.A.-C. M.S. LAB BLOOD ADD-ON [facility] [address] [place] [address], [facility] DTL [facility] [address] [place] [address] * (ABNORMAL) CBC with Differential, Blood (01/09/2024 1:47 PM CDT) Only the most recent of4 resultswithin the time period is included. Hemoglobin 12.5(L) 13.2 - 16.6 g/dL 01/09/2024 2:03 PM CDT STMA Hematocrit 40.4 38.3 - 48.6 % 01/09/2024 2:03 PM CDT STMA Erythrocytes 4.17(L) 4.35 - 5.65 x10(12)/L 01/09/2024 2:03 PM CDT STMA MCV 96.9 78.2 - 97.9 fL 01/09/2024 2:03 PM CDT STMA RBC Distrib Width 12.4 11.8 - 14.5 % 01/09/2024 2:03 PM CDT STMA Platelet Count 230 135 - 317 x10(9)/L 01/09/2024 2:03 PM CDT STMA Leukocytes 7.6 3.4 - 9.6 x10(9)/L 01/09/2024 2:03 PM CDT STMA Neutrophils 5.90 1.56 - 6.45 x10(9)/L 01/09/2024 2:03 PM CDT DHPM Lymphocytes 0.75(L) 0.95 - 3.07 x10(9)/L 01/09/2024 2:03 PM CDT STMA Monocytes 0.83(H) 0.26 - 0.81 x10(9)/L 01/09/2024 2:03 PM CDT STMA Eosinophils 0.05 0.03 - 0.48 x10(9)/L 01/09/2024 2:03 PM CDT STMA Basophils <0.03 0.01 - 0.08 x10(9)/L 01/09/2024 2:03 PM CDT STMA Blood (Blood, Venous) 01/09/2024 1:47 PM CDT 01/09/2024 2:00 PM CDT Carmen Montilla P.A.-C., M.S. LAB BLOOD ADD-ON [facility] [address] [place] [address], [facility] STMA [facility] [address] [place] [address] DHPM [facility] [address] [place] [address] * Magnesium (01/09/2024 1:47 PM CDT) Pathologist [facility] Magnesium, S 2.2 1.7 - 2.3 mg/dL 01/09/2024 2:49 PM CDT DTL Blood (Blood, Venous) 01/09/2024 1:47 PM CDT 01/09/2024 2:25 PM CDT Carmen Montilla P.A.-C., M.S. LAB BLOOD ADD-ON [facility] [address] [place], [place] [phone] [place] [address] DTL [facility] [address] [place] [address] * (ABNORMAL) Basic Metabolic Panel (01/09/2024 1:47 PM CDT) Only the most recent of4 resultswithin the time period is included. Potassium, P 4.4 3.6 - 5.2 mmol/L 01/09/2024 2:23 PM CDT STMA Sodium, P 139 135 - 145 mmol/L 01/09/2024 2:23 PM CDT STMA Chloride, P 106 98 - 107 mmol/L 01/09/2024 2:23 PM CDT STMA Bicarbonate, P 25 22 - 29 mmol/L 01/09/2024 2:23 PM CDT STMA Anion Gap, P 8 7 - 15 01/09/2024 2:23 PM CDT STMA BUN (Blood Urea Nitrogen), P 31(H) 8 - 24 mg/dL 01/09/2024 2:23 PM CDT STMA Creatinine 1.54(H) 0.74 - 1.35 mg/dL 01/09/2024 2:23 PM CDT STMA Estimated GFR (eGFR) 44(L) >=60 mL/min/BSA 01/09/2024 2:23 PM CDT STMA Comment: Estimated GFR calculated using the 2020 CKD_EPI creatinine equation. Calcium, Total, P 9.2 8.8 - 10.2 mg/dL 01/09/2024 2:23 PM CDT STMA Glucose, P 111 70 - 140 mg/dL 01/09/2024 2:23 PM CDT STMA Blood (Blood, Venous) 01/09/2024 1:47 PM CDT 01/09/2024 2:01 PM CDT Carmen Montilla P.A.-C., M.S. LAB BLOOD ADD-ON [facility] [address] [place] [address], [facility] [address] [place] [address] * Cystoscopy (12/13/2023 10:30 AM CDT) Narrative Shirley Villanueva APRN, C.N.P., M.S.N. - 12/13/2023 10:30 AM CDT Shirley Villanueva APRN, Susan.N.P., M.S.N. ? 12/13/2023 10:33 AM Cystoscopy Performed by: Shirley Villanueva APRN, C.N.P., M.S.N. Authorized by: Shirley Villanueva APRN, C.N.P., M.S.N. ?? Care team members present 1. Shirley Villanueva APRN, C.NFaby., M.S.N. 2. Promise Jones Additional procedures performed: cystoscopy ?? PROCEDURE DETAILS: ?Blue light imaging agent used: ??yes Fluoroscopy: Fluoroscopic image guidance used to localize target, identify at risk structures, and dynamically used to direct therapy to the target. Image(s) acquired and saved. A flexible cystoscope was inserted through the urethra into the bladder. Cystoscope was removed at the end of procedure. Mr. Hunt is a pleasant 88-year-old who presents for evaluation of urinary retention. ??He has a longstanding history of clean intermittent catheterization for the past 4 years. ??Is recently presented to the ED on several occasions due to difficulty passing a catheter. ??Transrectal ultrasound this morning demonstrated a 27 g gland. The patient was brought to cystoscopy suite and placed in lithotomy position. He was prepped and draped in the standard fashion. ??Patient identification was completed per protocol. ??Verbal consent was obtained. ?? A flexible cystoscope was inserted through the urethra into the bladder. Urethroscopy demonstrated normal-appearing urethra mucosa, no evidence of stricture, and high-riding bladder neck. ??Urethral sphincter coapted appropriately. ??Prostatic urethra moderate lateral lobe hyperplasia. ??Upon entrance into the bladder, lujan cystoscopy was performed. ??Significant bladder wall trabeculation. ??Several erythematous areas and bullous edema on the posterior wall near the dome consistent with catheterization. ?? 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 ?? Erythematous lesion without obvious papillary features within diverticulum noted, possibly a result of catheterization into diverticulum. ??No stones or foreign bodies. Ureteral orifices were identified in their orthotopic position bilaterally. Retroflex view demonstrated moderate intravesical protrusion. ??Cystoscope was then removed, patient tolerated the procedure well. IMPRESSION: ??High-riding bladder neck, BPH, large wide-mouth diverticulum left lateral bladder wall PLAN: ??Appointment later today to discuss management options CONSENT Consent obtained: verbal Consent given by: patient The benefits, risks and alternatives to the procedure and the potential need for sedation or anesthesia as well as the names, roles, and responsibilities of healthcare team members performing significant interventional tasks were discussed with the patient and/or decision maker. UNIVERSAL PROTOCOL All relevant documentation and testing were reviewed and available. All required blood products, implants, devices and or special equipment were made available as applicable. Pre-procedure verification was conducted and the correct site was marked if required. A fire risk assessment was done as applicable. The procedural time-out to verify correct patient, correct side/site, and procedure was conducted prior to performing the procedure and confirmed in a procedural pause. PRE-PROCEDURE DETAILS Procedure purpose: ??Diagnostic Appropriate hand hygiene, gown, cap, mask, protective eyewear, sterile gloves, skin preparation, sterile drape, and strict aseptic technique were utilized as applicable for the procedure.: yes ?? Site preparation: ??Povidone-iodine SEDATION / ANESTHESIA Anesthesia method: none POST-PROCEDURE DETAILS Procedure completed successfully: yes ?? Complications: no apparent complications ?? Shirley Villanueva APRN, C.N.P., M.S.N. UROLOGY ORDERABLES * US Prostate Transrectal (12/13/2023 9:00 AM CDT) Anatomical Region Laterality Modality Pelvis, Ultrasound RST LOS, Ultrasound ARZ LOS, Ultrasound FLA LOS N/A Ultrasound Impressions 12/13/2023 9:03 AM CDT Normal prostate ultrasound. Narrative 12/13/2023 9:03 AM CDT EXAM: US PROSTATE TRANSRECTAL COMPARISON: None FINDINGS: Central gland: Normal. Peripheral zone: Normal. AP: 3.0 cm Trans: 4.9 cm Lon.6 cm Estimated volume: 27 cc Seminal vesicles: Normal. PSA: n/a ng/ml PSA density: n/a (nl<0.15) Procedure Note Charan Rutledge M.D. - 12/13/2023 EXAM: US PROSTATE TRANSRECTAL COMPARISON: None FINDINGS: Central gland: Normal. Peripheral zone: Normal. AP: 3.0 cm Trans: 4.9 cm Lon.6 cm Estimated volume: 27 cc Seminal vesicles: Normal. PSA: n/a ng/ml PSA density: n/a (nl<0.15) IMPRESSION: Normal prostate ultrasound. Becki Prado M.D. IMG US PROCEDURES * Osmolality, Urine (12/04/2023 9:17 AM CDT) Osmolality, U 598 150 - 1150 mOsm/kg 12/04/2023 10:34 AM CDT DTL Urine 12/04/2023 9:17 AM CDT 12/04/2023 9:57 AM CDT Cj Flood M.D. LAB [place] [address] * (ABNORMAL) Dipstick, Urine (12/04/2023 9:17 AM CDT) Only the most recent of2 resultswithin the time period is included. Hemoglobin, QL, U Moderate(A) Negative 12/04/2023 10:01 AM CDT DTL Leukocyte Esterase, U Moderate(A) Negative 12/04/2023 10:01 AM CDT DTL Nitrite, U Positive(A) Negative 12/04/2023 10:01 AM CDT DTL Ketone, U Negative Negative mg/dL 12/04/2023 10:01 AM CDT DTL Glucose, U Negative Negative mg/dL 12/04/2023 10:01 AM CDT DTL Urine 12/04/2023 9:17 AM CDT 12/04/2023 9:57 AM CDT Cj Flood M.D. LAB URINE TASHIE LATASHA [facility] [address] [place], [place] [phone] [place] [address] * pH, Random, Urine (12/04/2023 9:17 AM CDT) Pathologist [facility] pH, Random, U 5.5 4.5 - 8.0 12/04/2023 10:34 AM CDT DTL Urine 12/04/2023 9:17 AM CDT 12/04/2023 9:57 AM CDT Cj Flood M.D. LAB URINE ORDE LATASHA Performing Organization Address City/[facility]/ZIP Co de Phone Number [facility] [address] [place] [address], [facility] [address] [place] [address] * (ABNORMAL) Microscopic Manual (12/04/2023 9:17 AM CDT) Only the most recent of2 resultswithin the time period is included. Pathologist [facility] Microscopy Abnormal 12/04/2023 10:34 AM CDT DTL RBC 3-10(A) <3 /hpf 12/04/2023 10:34 AM CDT DTL Dysmorphic RBC <25 <25 % 12/04/2023 10:34 AM CDT DTL WBC >100(A) /hpf 12/04/2023 10:34 AM CDT DTL Comment: ----REFERENCE VALUE---- <4 ??(Males) <11 (Females) Bacteria Present(A) 12/04/2023 10:34 AM CDT DTL Urine 12/04/2023 9:17 AM CDT 12/04/2023 9:57 AM CDT Cj Flood M.D. LAB URINE ANTONIO PAGAN Performing Organization Address City/[facility]/ZIP Co de Phone Number [facility] [address] [place] [address], [facility] [address] [place] [address] * (ABNORMAL) Bacterial Culture, Aerobic + Susceptibility, Urine (12/04/2023 9:17 AM CDT) Only the most recent of2 resultswithin the time period is included. Pathologist [facility] Urine Culture PSEUDOMONAS AERUGINOSA 10,000-100,000 cfu/mL (A) 12/06/2023 9:02 AM CDT DTL Comment:Susceptibilities per formed on another specimen [id number] Urine (Urine, Straight Catheter) 12/04/2023 9:17 AM CDT 12/04/2023 11:26 AM CDT Comment:Specimen Source Site : Urine Cj Flood M.D. LAB MICROBIOLO GY - GENERAL ORDERABLES Performing Organization Address [facility] Co de Phone Number [facility] [address] [place] [address], [facility] [facility] [address] [place] [address] * (ABNORMAL) Urinalysis, with Microscopic: Urine, Straight Catheter (12/04/2023 9:17 AM CDT) Only the most recent of2 resultswithin the time period is included. Source Urine, Urine, Straight Catheter 12/04/2023 9:57 AM CDT DTL Color, U Yellow 12/04/2023 9:57 AM CDT DTL Clarity, U Clear 12/04/2023 9:57 AM CDT DTL Protein, U 57(H) <26 mg/dL 12/04/2023 10:49 AM CDT DTL Protein/Osmola lity 0.95(H) <0.42 ratio 12/04/2023 10:49 AM CDT DTL Predicted 24 HR Protein, U 900(H) <229 mg/24 h 12/04/2023 10:49 AM CDT DTL Predicted Range 286-2834 mg/24 h 12/04/2023 10:49 AM CDT DTL Comment Micro done on <5 mL 12/04/2023 10:29 AM CDT DTL Urine (Urine, Straight Catheter) 12/04/2023 9:17 AM CDT 12/04/2023 9:57 AM CDT Cj Flood M.D. LAB URINE ORDE RABLES Performing Organization Address City/[facility]/ZIP Co de Phone Number [facility] [address] [place] [address], [facility] DTL [facility] [address] [place] [address] * (ABNORMAL) Dipstick, POCT, Urine (12/02/2023 12:29 PM CDT) Glucose, POCT, U Negative Negative mg/dL 12/02/2023 12:30 PM CDT PCED Ketone, POCT, U Negative Negative mg/dL 12/02/2023 12:30 PM CDT PCED Specific [place], POCT, U 1.020 1.005 - 1.030 12/02/2023 12:30 PM CDT PC[facility] Blood, POCT, U Small(A) Negative 12/02/2023 12:30 PM CDT PCED pH, POCT, Urine 5.5 5.0 - 8.0 12/02/2023 12:30 PM CDT PCED Protein, POCT, U 30(A) Negative mg/dL 12/02/2023 12:30 PM CDT PCED Nitrites, POCT, U Positive(A) Negative 12/02/2023 12:30 PM CDT PCED Leukocytes, POCT, U Moderate(A) Negative 12/02/2023 12:30 PM CDT PCED Urine 12/02/2023 12:2 9 PM CDT 12/02/2023 12:30 PM CDT Unknown Provider LAB POCT ORDERABLES - DEVICE POC RST [facility] OUT[facility]IENT [facility] [address] [place] [address], [facility] PCED [facility] POC [address] [place] [address] * pH, Urine (12/02/2023 11:38 AM CDT) pH, U 5.4 4.5 - 8.0 12/02/2023 12: 55 PM CDT DTL Urine 12/02/2023 11:3 8 AM CDT 12/02/2023 12:18 PM CDT Wesan S Shango P.A.-C. LAB URINE ORDERAB LES [facility] [address] [place] [address], [facility] [address] [place] [address] * Osmolality, Urine (12/02/2023 11:38 AM CDT) Osmolality, U 570 150 - 1150 mOsm/kg 12/02/2023 12:55 PM CDT DTL Urine 12/02/2023 11:3 8 AM CDT 12/02/2023 12:18 PM CDT Ramy Ramirez P.A.-C. LAB URINE ORDERAB LES Performing Organization Address City/[facility] Co de Phone Number [facility] [address] [place] [address], [facility] [address] [place] [address] from Last 3 Months Additional Health Concerns Infection Onset Date Last Indicated C. difficile 01/09/2024 01/09/2024 Care Teams Nursing Specialist Relationship Specialty Start Date End Date Elsewhere, Pcp PCP - General Internal Medicine 12/02/23
--- OUTSIDE RECORDS SUMMARY | 2024-01-31 12:40 | XMS_ITS | Clinical Summary ---
Author Organization [facility] Address [place], [place] [address] Care Team Providers Care Shipping/Receiving Manager Name Role Phone Cruz Lemon MD Unavailable [phone] Fredy Brizuela Unavailable Anselmo Escamilla MD Primary Care Provider + Allergies Active Allergy Reactions Criticality Noted Date Comments Amoxicillin Rash 12/15/2021 Oxycodone Rash 07/03/2007 Medications Medication Sig Dispensed Refills Start Date End Date Status zinc sulfate 50 mg zinc (220 mg) capsule Daily Act darian povidone-iodine 10% (BETADINE) 10 % [...] Allergic rhinitis, cause unspecified Encounters Date Type Department Care Team Description 01/30/2024 Orders Only [facility] [address] [place] [address] Votel, Krishna Sandoval MD Outside Order (Ordered by Sea Danielle) from Last 3 Months Immunizations Name Administration [...] Comments Blood Pressure 136/81 09/29/2022 9:[address] VENDOR Pulse 78 09/29/2022 9:[address] V[address] Temperature 36.7 ??C (98.1 ??F) 05/19/2021 1 2:41 PM CDT Respiratory Rate 16 10/29/2018 4:[address] VENDOR Oxygen Saturation 97% 09/29/2022 9:[address] VENDOR Inhaled Oxygen Concentration - - Weight 90.6 kg (199 lb 11.2 oz) 09/29/2022 9:[address] VENDOR Height 180 cm (5' 10.87) 02/27/2019 2:21 PM CDT Body Mass Index 27.96 02/27/2019 2:21 PM CDT Plan of Treatment Health Maintenance Due Date Last Done Comments Zoster (shingles) series for age 50+ (2 of 3) 03/12/2009 01/15/2009 Pneumococcal series for age 65+ (2 of 2 - PCV) 12/24/2009 12/24/2008 Medicare Wellness for age 65+ 02/07/2014 02/06/2013 BMI (ht and wt on same day) for age 18+ 02/28/2020 02/27/2019, 01/08/2019, 11/29/2018, Additional history exists Depression screening for age 12+ 04/01/2022 04/01/2021, 2021, 03/27/2021, Additional history exists Tetanus booster 02/06/2023 02/06/2013, 03/10/2009 COVID-19 vaccine series ( season) 2023 08/17/2021, 11/15/2020, 10/18/2020 Influenza for age 65+ 05/05/2024 05/19/2021 , 06/23/2020, 07/18/2019, Additional history exists Tdap Completed 02/06/2013 Advance Directives Documents on File Type Date Recorded Patient Reproduction Artist Expl anation Healthcare Directive 10/25/2018 6:11 PM 02 MAY 2003 * Full Code (Latest Code Status on File) Date Activated Date Inactivated Comments 10/24/2018 2:26 PM 10/29/2018 7:06 PM Question Answer Comments Code Status Discussion: Discussed Care Teams Shipping/Receiving Manager Relationship Specialty Start Date End Date Anselmo Escamilla MD [address] [place] [address] PCP - General Family Practice 07/08/21 Cruz Lemon MD [address] [place] [id number] Ophthalmology Surgery 02/06/13 Fredy Brizuela [address] [place] [id number] Ophthalmology Surgery 02/06/13
--- OUTSIDE RECORDS SUMMARY | 2024-01-31 12:40 | XMS_ITS | Encounter Summary ---
Author Organization [facility] Address [address] [place] [address] Care Team Providers Care Design Inserter Name Role Phone Elsewhere, Pcp Primary Care Provider Unavailabl e Reason for Referral * Outpatient (Routine) - Authorized Specialty Diagnoses / Procedures Referred By Mira t Referred To Contact Urology Shirley Villanueva APRN, C.NDarlene, M.S.N. [address] [place] [phone] [facility] Referral ID Status Reason Start Date Expiration Date V isits Requested Visits Authorized [id number] Authorized 01/10/2024 07/11/2025 1 1 Reason for Visit * Outpatient (Routine) - Closed Specialty Diagnoses / Procedures Referred By Contac t Referred To Contact Urology Shirley Villanueva APRN, C.NDarlene, M.S.N. [address] [place] [phone] [facility] Referral ID Status Reason Start Date Expiration Date Visits Re quested Visits Authorized [id number] Closed 12/29/2023 06/29/2025 1 1 Encounter Details Date Type Department Care Team (Late st Contact Info) Description 01/10/2024 3:45 PM CDT Office Visit Department of Urology in [place], [place] [address] [place] [phone] Shirley Villanueva APRN, C.N.P., M.S.N. [address] [place] [address] Retention Urinary (Primary Dx) Social History Tobacco Use Types Packs/Day Years Used Date Smoking Tobacco: Never Smokeless Tobacco: Never Alcohol Use Standard Drinks/Week Comments Not Currently 0 (1 standard drink = 0.6 oz pur e alcohol) [facility] Utilities Answer Date Recorded In the past 12 months has th e electric, gas, oil, or water company threatened to shut off services in your [...] money to buy more. Never true 12/13/19 Within the past 12 months, t he [...] your living situation today? [facility] 12/13/2023 Sex and Gender Information Value Date Recorded Sex Assigned at Male 12/13/2023 1:46 PM CDT Gender Identity Male 12/13/2023 1:46 PM CDT Sexual Orientation Straight 12/13/2023 1: 46 PM CDT documented as of this encounter Progress Notes * Shirley Villanueva APRN, C.N.P., M.S.N. - 01/10/2024 3:45 PM CDT SUBJECTIVE CHIEF COMPLAINT / REASON FOR VISIT Urinary retention Benign prostatic hyperplasia HISTORY OF PRESENT ILLNESS Mr. Hunt is a pleasant 88 y.o. male who presents today for follow up of urinary retention/benign prostatic hyperplasia. Briefly, he had been doing clean intermittent catheterization for some time before presenting to the ED on multiple occasions in urinary retention and hematuria after being unableto pass catheters. He was treated for Pseudomonas UTI on 12/04/2023 which was treated with Fosfomycin. Creatinine 1.49, eGFR 45. TRUS - 27 cc gland. Cystoscopy showed moderate BPH, high-riding bladder neck, and large diverticulum. He was initiated on Flomax at his visit on 12/13/2023. When we met on 12/29/2023, at his request, we discussed the pros and cons of indwelling catheters versus clean intermittent catheterization. He met with our nursing staff on 01/08/2024 for a voiding trial and CIC teaching. He was instructed to catheterize up to 6 times a day/every 4 hours. He returns today to re-evaluate his situation. He was seen in the ED yesterday for diarrhea x 1 week. He reports that he submitted a stool sample when he arrived to the clinic today. He reports that he is feeling better overall. He notes he has had a few episodes of catheterization where urine filled only the tube but did not drain. He attempted to manipulate the catheter without obtaining any more urine. He wonders if this could be because his bladder is empty. 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 Current Outpatient Medications: cholecalciferol, vitamin D3, 25 mcg (1,000 Unit) tablet, Take 1,000 Units by mouth., Disp: , Rfl: DME Urological supplies, DME Order, Disp: 1 Unspecified, Rfl: 0 multivitamin capsule, Take 1 capsule by mouth daily., Disp: , Rfl: tamsulosin (FLOMAX) 0.4 mg 24 hr capsule, Take 1 capsule (0.4 mg total) by mouth daily., Disp: 90 capsule, Rfl: 3 zinc gluconate 50 mg tablet, Take 50 mg by mouth daily with breakfast., Disp: , Rfl: Allergies Allergen Reactions Amoxicillin Rash Oxycodone Rash Social History Tobacco Use Smoking status: Never Smokeless tobacco: Never Substance Use Topics Alcohol use: Not Currently No family history on file. OBJECTIVE PHYSICAL EXAMINATION General: Resting comfortably in the chair. DIAGNOSTICS Labs: Lab Results Component Value Date NA 139 01/09/2024 CL 106 01/09/2024 BUN 31 (H) 01/09/2024 CO2 23 04/21/2022 HGB 12.5 (L) 01/09/2024 HCT 40.4 01/09/2024 WBC 7.6 01/09/2024 Lab Results Component Value Date CREATININE 1.54 (H) 01/09/2024 Microbiology/Culture Data: Microbiology Results (last 30 days) No results found for the last 720 hours. Pathology: No results found for this or any previous visit (from the past 720 hour(s)). Imaging: US Prostate Transrectal Result Date: 12/13/2023 Impression: Normal prostate ultrasound. Volume: 27 cc Cystoscopy: High-riding bladder neck, BPH, large wide-mouth diverticulum left lateral bladder wall ASSESSMENT / PLAN #1 Urinary retention It was my pleasure to see Mr. Hunt in clinic today for follow-up of urinary retention. He met with our nursing staff on 01/08/2024. He reports that his training session went well. He has been able toobtain a month supply of catheters from the [facility]. He has been asked to call 1 week prior to meeting a refill on the catheters. We discussed that he is likely dehydrated given his diarrhea and that would mean potentially needing to catheterize less frequently at this time. I did encourage him to increase his fluid intake in order to prevent dehydration. He has been curbing his water intake thinking this may help to decrease diarrhea. We discuss recommended daily fluid intake during sick days and well days. We discussed that it may be possible to decrease the frequency of catheterizationsif his catheterized volumes remain stable depending on fluid intake. We discussed that typically catheterized volumes of 400 or greater require catheterization 4 times per day. Initially, he was found to have 800 cc in his bladder. He does not feel the urge to void. He does not void volitionally. He would like to touch base next week in order to ensure that he is on the right track with catheterization. He is eagerly awaiting test results of his stool sample. PLAN: 1. Follow up on 01/16/2024 Signed by: Shirley Villanueva APRN, C.Cristi, M.S.N. documented in this encounter Plan of Treatment Upcoming Encounters Date Type Department Care Team (Latest Contact Info) Description 02/21/2024 9:00 AM CDT Clinical Communication Virtual Review in [place], [place] [address] [place] [address] 02/22/2024 3:45 PM CDT Office Visit Department of Urology in [address] [phone] Shirley Villanueva APRN, Susan.N.P., M.S.N. [address] [place] [phone] Scheduled Referrals Name Type Priority Associated Diagnoses Orde r Schedule Urology office visit (clinic) Outpatient Referral Routine Expected: 01/16/2024, Expires: 04/11/2025 documented as of this encounter Visit Diagnoses Diagnosis Retention Urinary- Primary documented in this encounter Additional Health Concerns Infection Onset Date Last Indicated Resolved Time COVID19 Pending 01/09/2024 01/09/2024 01/29/2024 5 :45 AM CDT documented as of this encounter Care Teams Design Inserter Relationship Specialty Start Date End Date Elsewhere, Pcp PCP - General Internal Medicine 12/02/23 documented as of this encounter
--- OUTSIDE RECORDS SUMMARY | 2024-01-31 12:40 | XMS_ITS | Encounter Summary ---
Author Organization [facility] Address [address] [place] [address] Care Team Providers Care Cell Preparer Name Role Phone Elsewhere, Pcp Primary Care Provider Unavailabl e Reason for Visit * Reason Onset Date Comments After Visit Question 01/15/2024 Post cysto Encounter Details Date Type Department Care Team (Latest Contact Info) Description 01/15/2024 Clinical Communication Department of Urology in [place], [place] [address] [place] [phone] Shirley Villanueva APRN, C.N.P., M.S.N. [address] [place] [phone] After Visit Question (Post cysto) Social History Tobacco Use Types Packs/Day Years Used Date Smoking Tobacco: Never Smokeless Tobacco: Never Alcohol Use Standard Drinks/Week Comments Not Currently 0 (1 standard drink = 0.6 oz pur e alcohol) [facility] Utilities Answer Date Recorded In the past 12 months has [employer] electric, gas, oil, or water company threatened [...] your living situation today? I have a [facility] place to live 12/13/2023 Sex and Gender Information Value Date Recorded Sex Assigned at Male 12/13/2023 1:46 PM CDT Gender Identity Male 12/13/2023 1:46 PM CDT Sexual Orientation Straight 12/13/2023 1: 46 PM CDT documented as of this encounter Plan of Treatment Upcoming Encounters Date Type Department Care Team (Latest Contact Info) Description 02/21/2024 9:00 AM CDT Clinical Communication Virtual Review in [place], [place] [address] [place] [phone] 02/22/2024 3:45 PM CDT Office Visit Department of Urology in [place], [place] [address] [place] [phone] Shirley Villanueva APRN, C.N.P., M.S.N. [address] [place] [phone] documented as of this encounter Visit Diagnoses Not on filedocumented in this encounter Additional Health Concerns Infection Onset Date Last Indicated Resolved Time COVID19 Pending 01/09/2024 01/09/2024 01/29/2024 5 :45 AM CDT C. difficile 01/09/2024 01/09/2024 documented as of this encounter Care Teams Cell Preparer Relationship Specialty Start Date End Date Elsewhere, Pcp PCP - General Internal Medicine 12/02/23 documented as of this encounter
--- OUTSIDE RECORDS SUMMARY | 2024-01-31 12:40 | XMS_ITS | Referral Summary ---
Author Organization [facility] Address [address] [place] [address] Care Team Providers Care Enamel Applier Name Role Phone Elsewhere, Pcp Primary Care Provider Unavailabl e Source Comments Patient records contain information from all sites at [facility]. For routine questions regarding patient records, call [phone] during business hours, M-F 8:00 AM - 5:00 PM Central Time. Record requests for emergency care only can be directed to [phone] at any time.[facility] Encounters Date Type Department Care Team Description 01/15/2024 Clinical Communication Department of Urology in [place], [place] [address] [place] [phone] Shirley Villanueva APRN, C.NZeeshanP., M.S.N. After Visit Question (Post cysto) 01/10/2024 3:45 PM CDT Office Visit Department of Urology in [place], [place] [address] [place] [phone] Shirley Villanueva APRN, C.N.P., M.S.N. Retention Urinary (Primary Dx) 01/09/2024 12:47 PM CDT - 01/09/2024 7:35 PM CDT Emergency [facility] Emergency Department [address] [place] [phone] Sweta Rivera M.D. Diarrhea (Primary Dx); Enterocolitis Due To Clostridium Difficile Not Specified As Recurrent Discharge Disposition: Home or Self Care 01/08/2024 10:00 AM CDT Procedure visit Department of Urology in [place], [place] [address] [place] [phone] Shirley Villanueva APRN, C.NFaby., M.S.N. Faina Perez R.N. Retention Urinary 12/29/2023 11:00 AM CDT Office Visit Department of Urology in [place], [place] [address] [place] [phone] Shirley Villanueva APRN, C.NFaby., M.S.N. Retention Urinary (Primary Dx) 12/26/2023 Orders Only Department of Urology in [place], [place] [address] [place] [phone] Shirley Villanueva APRN, C.NFaby., M.S.N. 12/26/2023 Clinical Communication Department of Urology in [address] [phone] Shirley Villanueva APRN, C.NFaby., M.S.N. Message from patient; Nurse Assessment 12/13/2023 8:00 AM CDT Clinical Support Enema Prep Facility in [place], [place] [address] [place] [phone] Silvano Key M.D. Halder, Spencer R, R.N. Retention Urinary 12/13/2023 10:30 AM CDT Procedure visit Department of Urology in [place], [place] [address] [place] [phone] Shirley Villanueva APRN, C.N.P., M.S.N. Retention Urinary 12/13/2023 7:23 AM CDT - 12/13/2023 11:59 PM CDT Hospital Encounter Department of Radiology, [facility], in [place], [place] [address] [place] [phone] Becki Prado M.D. Retention Urinary; Hyperplasia Prostate Benign Localized With Obstruction Discharge Disposition: Home or Self Care 12/13/2023 2:30 PM CDT Comprehensive Visit Department of Urology in [place], [place] [address] [place] [phone] Shirley Villanueva APRN, C.N.P., M.S.N. Retention Urinary 12/11/2023 Clinical Communication Department of Urology in [place], [place] [address] [place] [phone] Silvano Key M.D. 12/08/2023 Clinical Communication Department of Urology in [place], [place] [address] [place] [phone] Shirley Villanueva APRN, C.N.P., M.S.N. 12/06/2023 9:26 AM CDT - 12/06/2023 1:56 PM CDT Emergency [facility] Emergency Department [address] [place] [phone] Adam Powell, P.A.-C. Retention Urinary (Primary Dx); Hyperplasia Prostate Benign Localized With Obstruction Discharge Disposition: Home or Self Care 12/04/2023 8:01 AM CDT - 12/04/2023 10:49 AM CDT Emergency [facility] Emergency Department [address] [place] [phone] Cj Flood M.D. Retention Urinary (Primary Dx); Neurogenic Bladder; Urinary Tract Infection Site Not Specified Discharge Disposition: Home or Self Care 12/02/2023 Clinical Communication Department of Urology in [place], [place] [address] [place] [phone] Terra Junior M.D. 12/02/2023 11:00 AM CDT - 12/02/2023 2:05 PM CDT Emergency [facility] Emergency Department [address] [place] [phone] Ramy Ramirez, P.A.-C. Neurogenic Bladder (Primary Dx); Urinary Tract Infection Site Not Specified Discharge Disposition: Home or Self Care 12/02/2023 Intake [facility] from Last 3 Months Allergies Active Allergy [...] drink = 0.6 oz pur e alcohol) [facility] Utilities Answer Date Recorded In the past 12 months has th e [facility], gas, oil, or water Be my eyes threatened to shut off services in your [...] your living situation today? [facility] 12/13/2023 Sex and Gender [...] 177.8 cm (5' 10) 09/26/2023 8:04 AM REFINERY OPERATOR HELPER CRUDE UNIT Body Mass Index 27.39 09/26/2023 8:04 AM REFINERY OPERATOR [employer] UNIT Plan of Treatment Upcoming Encounters Date Type Department Care Team (Latest Contact Info) Description 02/21/2024 9:00 AM CDT Clinical Communication Virtual Review in [place], [place] [address] [place] [phone] 02/22/2024 3:45 PM CDT Office Visit Department of Urology in [place], [place] [address] [place] [phone] Shirley Villanueva APRN, C.N.P., M.S.N. [address] [place] [phone] Medical Devices Implanted Type Area Crude Unit Operator Device Identifier Shelf Expiration Date Model / [...] CDT DTL Rotavirus Ag, F Negative Negative 5:29 PM CDT DTL Sapovirus Negative Negative 01/10/2024 5:29 PM CDT DTL Comment: ----ADDITIONAL INFORMATION---- This assay is performed using the FDA-cleared AirpushArray GI Panel ([employer] Semi-Urgent This is a semi-urgen t result([facility]) [facility] Stool 01/09/2024 6:00 PM CDT 01/10/2024 3:56 PM CDT Sweta Rivera M.D. LAB MICROBIOLOGY - GENERAL ORDERABLES Performing Organization Address City/[facility] Co de Phone Number [facility] 200 [place] [address], [facility] DTL [address] [place] [address] * Hepatic Function Panel (01/09/2024 1:47 PM [...] Carmen Montilla P.A.-C., M.S. LAB BLOOD ADD-ON Performing Organization Address City/[facility]/ZIP Co de Phone Number [facility] 200 [place] [address], [facility] DTL [address] [address] * (ABNORMAL) CBC with Differential, Blood (01/09/2024 [...] Carmen Montilla P.A.-C., M.S. LAB BLOOD ADD-ON [facility] [address] [place] [address], [place] [facility] 200 [place] [address] [facility] 200 [place] [address] * Magnesium (01/09/2024 1:47 PM CDT) [facility] Magnesium, S 2.2 1.7 - 2.3 mg/dL 01/09/2024 2:49 PM CDT DTL Blood (Blood, Venous) 01/09/2024 1:47 PM CDT 01/09/2024 2:25 PM CDT Carmen Montilla P.A.-C., M.S. LAB BLOOD ADD-ON [facility] 200 [place] [address], [facility] DTL [facility] 200 [place] [address] * (ABNORMAL) Basic Metabolic Panel (01/09/2024 1:47 PM CDT) Only the most recent of4 resultswithin the time period is included. [facility] Potassium, P 4.4 3.6 - 5.2 mmol/L [...] CDT 01/09/2024 2:01 PM CDT Carmen Montilla P.A.-C. M.S. LAB BLOOD ADD-ON [facility] [address] [place] [address], [facility] [address] [place] [address] * Cystoscopy (12/13/2023 10:30 AM CDT) Narrative Shirley Villanueva APRN, C.NDarlene, M.S.N. - 12/13/2023 10:30 AM CDT Shirley Villanueva APRN, C.N.P., M.S.N. ? 12/13/2023 10:33 AM Cystoscopy Performed by: Shirley Villanueva APRN, C.N.P., M.S.N. Authorized by: Shirley Villanueva APRN, C.N.P., M.S.N. ?? Care team members present 1. Shirley Villanueva APRN, C.N.P., M.S.N. 2. Promise Jones Additional procedures performed: [...] Cj Flood M.D. LAB URINE ANTONIO PAGAN [facility] [address] [place], [place] [address] [address] [place] [address] * (ABNORMAL) Dipstick, Urine (12/04/2023 9:17 AM [...] Cj Flood M.D. LAB URINE ANTONIO PAGAN [facility] [address] [place] [address], [facility] 200 [place] [address] * pH, Random, Urine (12/04/2023 9:17 AM CDT) pH, Random, U 5.5 4.5 - 8.0 12/04/2023 10:34 AM CDT DTL Urine 12/04/2023 9:17 AM CDT 12/04/2023 9:57 AM CDT Cj Flood M.D. LAB URINE ANTONIO PAGAN [facility] [address] [place] [address], [facility] [address] [place] [address] * (ABNORMAL) Microscopic Manual (12/04/2023 9:17 AM CDT) Only the most recent of2 resultswithin the time period is included. Microscopy Abnormal 12/04/2023 10:34 AM CDT DTL [...] LAB URINE ORDE RABLES Performing Organization Address City/[facility] Co de Phone Number [address] [place] [address] * (ABNORMAL) Bacterial Culture, Aerobic + Susceptibility, Urine (12/04/2023 9:17 AM CDT) Only the most recent of2 resultswithin the time period is included. Urine Culture PSEUDOMONAS AERUGINOSA 10,000-100,000 cfu/mL (A) 12/06/2023 9:02 AM CDT DTL Comment:Susceptibilities per formed on another specimen [id number] Urine (Urine, Straight Catheter) 12/04/2023 9:17 AM CDT 12/04/2023 11:26 AM CDT Comment:Specimen Source Site : Urine Cj Flood M.D. LAB MICROBIOLO GY - GENERAL ORDERABLES Performing Organization Address City/[facility]/ZIP Co de Phone Number [facility] [address] [place] [address] * (ABNORMAL) Urinalysis, with Microscopic: Urine, Straight [...] Cj Flood M.D. LAB URINE ANTONIO PAGAN [facility] Organization Address City/State/ZIP Co de Phone Number [facility] 200 [place] [address], [facility] 200 [place] [address] * (ABNORMAL) Dipstick, POCT, Urine (12/02/2023 12:29 PM CDT) Glucose, POCT, U Negative Negative mg/dL 12/02/2023 12:30 PM CDT PCED Ketone, POCT, U Negative Negative mg/dL 12/02/2023 12:30 PM CDT PCED Specific Lorraine, POCT, U 1.020 1.005 - 1.030 12/02/2023 [...] Unknown Provider LAB POCT ORDERABLES - DEVICE Performing Organization Address City/[facility]/ZIP Co de Phone Number POC [facility] 200 [place] [address], [facility] PCED [facility] 200 [place] [address] * pH, Urine (12/02/2023 11:38 AM CDT) pH, U 5.4 4.5 - 8.0 12/02/2023 12: 55 PM CDT DTL Urine 12/02/2023 11:3 8 AM CDT 12/02/2023 12:18 PM CDT Ramy Ramirez P.A.-C. LAB URINE ORDERAB LES Performing Organization Address [facility]/ZIP Co de Phone Number [facility] [address] [place] [address], [facility] DTL [facility] 200 [place] [address] * Osmolality, Urine (12/02/2023 11:38 AM CDT) Osmolality, U 570 150 - 1150 mOsm/kg 12/02/2023 12:55 PM CDT DTL Urine 12/02/2023 11:3 8 AM CDT 12/02/2023 12:18 PM CDT Ramy SandersCZeeshan LAB URINE ORDERAB LES [facility] [address] [place] [address], [place] DTL [facility] [address] [place] [address] from Last 3 Months Additional Health Concerns Infection Onset Date Last Indicated C. difficile 01/09/2024 01/09/2024 Care Teams Enamel Applier Relationship Specialty Start Date End Date Elsewhere, Pcp PCP - General Internal Medicine 12/02/23
--- OUTSIDE RECORDS SUMMARY | 2024-01-31 12:40 | XMS_ITS ---
Author Organization [facility] Address [address] [place] [address] Care Team Providers Care Banquet Bartender Name Role Phone Unavailable Unavailable Unavailable Surgery Details Not on file Complications Check Surgery Details section. Procedure Estimated Blood Loss Check Surgery Details section. Procedure Findings Check Surgery Details section. Procedure Specimens Taken Check Surgery Details section.
--- OUTSIDE RECORDS SUMMARY | 2024-01-31 12:41 | XMS_ITS | Encounter Summary ---
Author Organization [facility] Address [address] [place] [address] Care Team Providers Care Certified Paralegal Name Role Phone Elsewhere, Pcp Primary Care Provider Unavailabl e Reason for Referral * Outpatient (Routine) - Closed Specialty Diagnoses / Procedures Referred By Mira ricci Referred To Contact Urology Shirley Villanueva APRN, C.N.Vasquez, M.S.N. [address] [place] [phone] [facility] Referral ID Status Reason Start Date Expiration Date Visits Re quested Visits Authorized [id number] Closed 12/26/2023 06/26/2025 1 1 Encounter Details Date Type Department Care Team (Late st Contact Info) Description 12/26/2023 Orders Only Department of Urology in [place], [place] [address] [place] [phone] Shirley Villanueva APRN, C.N.Omar., M.S.N. [address] [place] [phone] Social History Tobacco Use Types Packs/Day Years Used Date Smoking Tobacco: Never Smokeless Tobacco: Never Alcohol Use Standard Drinks/Week Comments Not Currently 0 (1 standard drink = 0.6 oz pur e alcohol) [facility] Utilities Answer Date Recorded In the [...] your living situation today? I have a [facility] place to live 12/13/2023 Sex and Gender Information Value Date Recorded Sex Assigned at Male 12/13/2023 1:46 PM CDT Gender Identity Male 12/13/2023 1:46 PM CDT Sexual Orientation Straight 12/13/2023 1: 46 PM CDT documented as of this encounter Plan of Treatment Upcoming Encounters Date Type Department Care Team (Latest Contact Info) Description 02/21/2024 9:00 AM CDT Clinical Communication Virtual Review in [place], [place] [address] [place] [address] 02/22/2024 3:45 PM CDT Office Visit Department of Urology in [place], [place] [address] [place] [address] Shirley Villanueva APRN, C.N.P., M.S.N. [address] [place] [address] Scheduled Referrals Name Type Priority Associated Diagnoses Orde r Schedule Urology office visit (clinic) Outpatient Referral Routine Expected: 12/26/2023, Expires: 03/26/2025 documented as of this encounter Visit Diagnoses Not on filedocumented in this encounter Additional Health Concerns Infection Onset Date Last Indicated Resolved Time COVID19 Pending 01/09/2024 01/09/2024 01/29/2024 5 :45 AM CDT documented as of this encounter Care Teams Certified Paralegal Relationship Specialty Start Date End Date Elsewhere, Pcp PCP - General Internal Medicine 12/02/23 documented as of this encounter
--- OUTSIDE RECORDS SUMMARY | 2024-01-31 12:41 | XMS_ITS | Encounter Summary ---
Author Organization [facility] Address [address] [place] [address] Care Team Providers Care Rail Gang Supervisor Name Role Phone Elsewhere, Pcp Primary Care Provider Unavailabl e Reason for Referral * Outpatient (Routine) - Closed Specialty Diagnoses / Procedures Referred By Mira t Referred To Contact Diagnoses Retention Urinary Procedures Enema Prep Silvano Key M.D. 200 [place] [address] [facility] Referral ID Status Reason Start Date Expiration Date Visits Re quested Visits Authorized [id number] Closed 12/11/2023 12/10/2024 1 1 Encounter Details Date Type Department Care Team (Late st Contact Info) Description 12/11/2023 Clinical Communication Department of Urology in [place], [place] [address] [place] [phone] Silvano Key M.D. [address] [place] [phone] Social History Tobacco Use Types Packs/Day Years Used Date Smoking Tobacco: Never Smokeless Tobacco: Never Alcohol Use Standard Drinks/Week Comments Not Currently 0 (1 standard drink = 0.6 oz pur e alcohol) Nutrition Answer Date Recorded Nutrition: EVOO Fat [...] AM CDT Clinical Communication Virtual Review in [place], [place] 200 [place] [address] 02/22/2024 3:45 PM CDT Office Visit Department of Urology in [place], [place] [address] [place] [phone] Shirley Villanueva APRN, C.N.P., M.S.N. [address] [place] [phone] Scheduled Orders Name Type Priority Associated Diagnoses Orde r Schedule Enema Prep Procedures Routine Retention Urinary Expected: 12/13/2023, Expires: 03/11/2025 documented as of this encounter Visit Diagnoses Diagnosis Retention Urinary- Primary documented in this encounter Care Teams Rail Gang Supervisor Relationship Specialty Start Date End Date Elsewhere, Pcp PCP - General Internal Medicine 12/02/23 documented as of this encounter
--- OUTSIDE RECORDS SUMMARY | 2024-01-31 12:41 | XMS_ITS | Encounter Summary ---
Author Organization [facility] Address [address] [place] [address] Care Team Providers Care Bathroom Tiling Professional Name Role Phone Elsewhere, Pcp Primary Care Provider Unavailabl e Reason for Referral * Outpatient (Routine) - Closed Specialty Diagnoses / Procedures Referred By Mira ricci Referred To Contact Diagnoses Retention Urinary Hyperplasia Prostate Benign Localized With Obstruction Procedures US Prostate Transrectal Becki Prado M.D. [address] [place] [address] [facility] Referral ID Status Reason Start Date Expiration Date Visits Re quested Visits Authorized [id number] Closed 12/06/2023 12/05/2024 1 1 * Outpatient (Routine) - Authorized Specialty Diagnoses / Procedures Referred By Mira ricci Referred To Contact Diagnoses Retention Urinary Procedures URO Uroflow Becki Prado M.D. [address] [place] [address] [facility] Referral ID Status Reason Start Date Expiration Date V isits Requested Visits Authorized [id number] Authorized 12/06/2023 12/05/2024 1 1 * Outpatient (Routine) - Closed Specialty Diagnoses / Procedures Referred By Mira ricci Referred To Contact Urology Diagnoses Retention Urinary Becki Prado M.D. [address] [place] [phone] [facility] Referral ID Status Reason Start Date Expiration Date Visits Re quested Visits Authorized [id number] Closed 12/06/2023 06/06/2025 1 1 Reason for Visit * Reason Comments Urinary Retention Encounter Details Date Type Department Care Team (Late st Contact Info) Description 12/06/2023 9:26 AM CDT - 12/06/2023 1:56 PM CDT Emergency [facility] Emergency Department [address] [place] [phone] Adam Powell P.A.-C. [address] [place] [phone] Retention Urinary (Primary Dx); Hyperplasia Prostate Benign Localized With Obstruction Discharge Disposition: Home or Self Care Social History Tobacco Use Types Packs/Day Years [...] PM CDT documented as of this encounter Last Filed Vital Signs Vital Sign Reading Time Taken Comments Blood Pressure 127/84 12/06/2023 1:30 PM CDT Pulse 80 12/06/2023 1:45 PM CDT Temperature 36.6 ??C (97.9 ??F) 12/06/2023 9:41 AM CD T Respiratory Rate 18 12/06/2023 1:43 PM CDT Oxygen Saturation 93% 12/06/2023 1:45 PM CDT Inhaled Oxygen Concentration - - Weight 89.5 kg (197 lb 5 oz) 12/06/2023 9:30 AM CDT Height - - Body Mass Index 28.31 09/26/2023 8:04 AM SERVICE DESK DIRECTOR documented in this encounter Discharge Instructions * Discharge Instructions* Adam Powell P.A.-C. - 12/06/2023 12:52 PM CDT Catheter care as discussed and educated Follow up with Urology You were examined and treated today in the Emergency Department (ED) on an emergency basis. This visit is not a substitute for comprehensive and ongoing medical care. In most cases, you must let yourprimary physician evaluate you again. Call your doctor today to advise them of your ED visit and arrange for out patient follow up. Tell your doctor about any new or lasting problems. After you leavethe ED today, please follow the instructions provided to you. Return to the Emergency Department for new, worsening, or persistent symptoms. * Attachments The following attachments cannot be sent through Care Everywhere. * Acute Urinary Retention Male [id number] (Tajik) documented in this encounter Medications at Time of Discharge Medication Sig Dispensed Refills Start Date End Date cholecalciferol, vitamin D3, 25 mcg (1,000 Unit) tablet Take 1,000 Units by mouth. 12/15/2021 multivitamin capsule Take 1 capsule by mouth daily. zinc gluconate 50 mg tablet Take 50 mg by mouth daily with breakfast. fosfomycin (MONUROL) 3 gram packetIndications:Neurog enic Bladder,Urinary Tract Infection Site Not Specified Take 3 g by mouth as directed. Take one dose (3 grams) every 3 days for a total of 3 doses. 3 packet 12/04/2023 12/29/2023 documented as of this encounter Consult Notes * Becki Prado M.D. - 12/06/2023 1:55 PM CDTAssociated Order(s): IP CONSULT TO UROLOGY UROLOGY CHIEF SERVICE CONSULT NOTE REASON FOR CONSULT Unable to place catheter SUBJECTIVE HISTORY OF PRESENT ILLNESS Mr. Hunt is a pleasant 88 y.o. male with known bladder outlet obstruction, previously seen by Dr. Franco in 2020 for recurrent urinary tract infections in the [facility]. Workup at that time included cystoscopy which demonstrated moderate lateral lobe hyperplasia and UDS with large bladder diverticulum, 25% voiding and PVR of 750 cc. Narrowing was visualized of the bladder neck and prostatic urethra. Voiding pressure 50-55 cc. Plan at that time was for follow-up after patient thought about surgery versus CIC. Since then he has been conducting CIC multiple times daily with a 14 Fr coude. During the last weekpatient has been having difficulties placing his catheter. ATC call received 12/01 for similar complaint and patient was ultimately transferred to the [facility] ED with successful passage of a 16 Lithuanian coude. Patient presented again on 12/03 after experiencing some hematuria and difficulty with catheterizing. 16 Lithuanian coude was again successfully passed. At that time previous urines noted for Pseudomonas, fosfomycin started. Patient again today presents with difficulty. He is able to spontaneously void an estimated 100-100cc, but can not currently catheterize. Reports some hematuria during the last few days, however, noclots. Antiplatelets/Anticoagulants: None Past Medical History CKD Past Surgical History Denies any previous pelvic surgery Social History Reviewed. Lives in [place]. was present in the room. OBJECTIVE OBJECTIVE BP 127/84 Pulse 80 Temp 36.6 ??C (Oral) Resp 18 Wt 89.5 kg SpO2 93% BMI 28.31 kg/m?? General: Lying in bed, comfortable appearing Chest: Nonlabored breathing on room air Abdomen: Soft, nondistended, no flank pain. Neurologic: Interacting, mentating well Labs: Creatinine 1.49 (1.60) Leukocytes 4.0 Imaging: No results found. Micro: 12/03 straight catheterization: Pseudomonas ASSESSMENT / PLAN ASSESSMENT / PLAN Mr. Hunt is a pleasant 88 y.o. male with known bladder outlet obstruction, previously seen by Dr. Franco in 2020 for recurrent urinary tract infections in the [facility]. Patient is currently afebrile, hemodynamically stable, and nontoxic-appearing. Creatinine stable. Eighteen Lithuanian coude placed without difficulty with return of clear yellow urine. 10 cc instilled into balloon. Patient was given a leg bag and educated on catheter care. Plan for outpatient follow-upas soon as possible for voiding trial and assessment of bladder outlet obstruction. Patient is inter ested in surgical management at this time. RECOMMENDATIONS: -18 Fr catheter placed without difficulty, 10 cc instilled sterile water instilled into the balloon - patient given return precautions for nondraining catheter and/or hematuria with clots - patient given leg bag and emergency medicine colleagues provided [place] management education - outpatient follow up ordered The above was discussed with Dr. Key, the chief urology resident certified residential medication aide. Please page chief Urology Service with questions or concerns at the pager numbers below. I saw and evaluated the patient with the teaching physician Dr.Adam Bisi Newsome. They were present during the hall portions of the service and reviewed and agreed with my documentation. Becki Prado M.D., Urology PGY-1 [place] [phone] from 7AM-5PM, [phone] after hours Associated attestation - Osman Newsome M.D. - 12/07/2023 1:45 PM CDT I saw and evaluated the patient, participating in the hall portions of the service. I reviewed the resident/fellow???s note. I agree with the resident/fellow???s findings and plan. documented in this encounter ED Notes * Adam Powell, King. - 12/06/2023 12:07 PM CDT SUBJECTIVE CHIEF COMPLAINT/REASON FOR VISIT Urinary Retention HISTORY OF PRESENT ILLNESS Sreedhar Hunt is a 88 y.o. male presents to [facility] Emergency Department requesting evaluation for urinary retention. He self catheterizes at his home with no issues for over five years; however, 7days ago, he was unable to do so and presented to the [facility] for evaluation. They were unable to pass a catheter there and he was referred to [facility] ED where Urology was consulted and a tech came down to place a catheter for him. The tech experienced some resistance and had to exchange his catheter for a smaller size (16 Fr) which was placed without difficulty. Patient came back on 12/04/2023 for continued urinary retention symptoms and inability to past eventhe 16 Lithuanian catheter at home which he normally self caths 4 times daily. Once again in [facility] was able to cath him with a 16 Lithuanian. Urine did not appear infected. Patient was starting fosfomycin starting on 12/03 in his next dose is on 12/07/2023. He has been noticing some blood after he pulled the catheter out recently. No fevers. No abdominal pain. No back pain. History provided by: Patient and medical records pharmacy messenger needed/used: no REVIEW OF SYSTEMS Constitutional: Negative for fever. Respiratory: Negative for shortness of breath. Cardiovascular: Negative for chest pain. Gastrointestinal: Negative for abdominal pain and vomiting. Genitourinary: Positive for inability to urinate and hematuria. Neurological: Negative for headaches. OBJECTIVE Initial Vitals Temperature 12/06/23 0941 36.6 ??C Pulse Rate 12/06/23 0941 94 Heart Rate -- Resp Rate 12/06/23 0941 20 Blood Pressure 12/06/23 0941 150/84 SpO2 12/06/23 0941 94 % Pain Score 12/06/23 0939 0 - No pain PHYSICAL EXAMINATION Constitutional: Nursing note and vitals reviewed. He appears not lethargic. No distress. HENT: Head: Normocephalic and atraumatic. No signs of injury. Nose: Nose normal. Mouth/Throat: Mucous membranes are moist. Eyes: Conjunctivae and EOM are normal. Pupils are equal, round, and reactive to light. Cardiovascular: Normal rate. Capillary refill: takes less than 3 secondsEdema: no edema noted Pulmonary/Chest: Effort normal. No tachypnea. No respiratory distress. Abdominal: Soft. exhibits no distension and no mass. There is no abdominal tenderness. There is no rebound and no guarding. Musculoskeletal: General: No deformity. Normal range of motion. Neurological: Alert and oriented to person, place, and time. He is not disoriented. He exhibits normal muscle tone. Coordination normal. Skin: Skin is warm, dry and normal color. He is not diaphoretic. Psychiatric: He has a normal mood and affect. Behavior is normal. ASSESSMENT/PLAN Assessment and Plan The patient presents to the ED for evaluation of urinary retention. Patient is awake, alert, oriented and appropriate to questions who is nontoxic or ill-appearing. Initial presentation to ED notable for an afebrile 88-year-old male with vital signs within normal limits. Secondary to this patient who has had multiple emergency visits over the past week due to urinary retention and requiring 16 Lithuanian catheter to relieve symptoms in the setting of pain requiring 14 Lithuanian catheters for the past 5 years at least chronically for a known neurogenic bladder a plan was made to proceed with some baseline labs including CBC, BMP, urinalysis and bladder scan with planto attempt 16 Lithuanian catheterization with Urology tech. Social Determinants Impacting Care (literacy, employment, housing, substance abuse): None Tests/prescriptions considered and not done: None Admission Consideration: No Differential Diagnoses Include: Urinary tract infection, urinary obstruction, pulse renal RED, electrolyte abnormality, pyelonephritis See ED Course for diagnostics, disposition and further medical decision making.. ED Course as of 12/06/23 1344 MonDec 06, 2023 1200 600 + on bladder scan. Attempted both 14 and 16 Lithuanian coude without success by catheter team. In the setting of this patient chronically catheterizing himself for years with 14 Lithuanian up until the past week or he is required emergency medicine visits and a 16 Lithuanian catheter to get urine/relief with this last being done Monday night and patient only able to spontaneously void when feeling significant distention plan will be to discuss case with Urology and request they come down and attempt catheter. 1251 Catheter successfully placed by Urology. We will leave catheter in place neurology will followup with patient. They question if this is secondary to possible prostate issue. Patient will require Education by Urology tech as well as a leg bag be provided for him. Continue fosfomycin. I encourage follow up with their primary care provider as indicated. I also encourage to return emergency department for worsening symptoms or any other concerns they feel requires further evaluation. This plan of discharge and follow-up included discussion of all test results in detail with opportunity to ask questions during discharge process. At this time there are no further questions regarding this plan and discussion. I will discharge them home in stable condition. Final Diagnoses: as of 12/06/23 1344 Retention Urinary Adam Powell P.A.-C. 12/06/23 1344 * Cheo Landis R.N. - 12/06/2023 9:47 AM CDT Patient presents to the ED with complaints of unable to pass his catheter. He states he normally self catheterizes himself. He typically uses a 14 fr. Last Monday he was not able to pass his catheter. He was seen in the ED and had his bladder drained with a 16 fr. He was able to self cath Monday but Monday night could not pass his catheter again. He is able to void small amounts but not fully able to empty his bladder. He denies any fever or chills, burning with urination. Cheo Landis R.N. 12/06/23 0950 documented in this encounter Plan of Treatment Upcoming Encounters Date Type Department Care Team (Latest Contact Info) Description 02/21/2024 9:00 AM CDT Clinical Communication Virtual Review in [place], [place] [address] [place] [phone] 02/22/2024 3:45 PM CDT Office Visit Department of Urology in [place], [place] [address] [place] [phone] Shirley Villanueva APRN, C.N.P., M.S.N. [address] [place] [phone] Scheduled Orders Name Type Priority Associated Diagnoses Orde r Schedule Bacterial Culture, Aerobic + Susceptibility, Urine Microbiology STAT STAT for 1 Occur rences starting 12/06/2023 until 12/06/2023 URO Uroflow Procedure Routine Retention Urinary 1 Occurrences starting 12/06/2023 until 03/06/2025 Scheduled Referrals Name Type Priority Associated Diagnoses Orde r Schedule Urology - General - urinary retention consult (clinic) Outpatient Referral Routine Retention Urinary Expected: 12/06/2023, Expires: 03/06/2025 documented as of this encounter Procedures Procedure Name Priority Date/Time Associated Diagnosis Comments CBC WITH DIFFERENTIAL, B STAT 12/06/2023 11:10 AM CDT BASIC METABOLIC PANEL, S/P STAT 12/06/2023 11:10 AM CDT documented in this encounter Results * US Prostate Transrectal (12/13/2023 9:00 AM [...] Becki Prado M.D. IMG US PROCEDURES * (ABNORMAL) Basic Metabolic Panel (12/06/2023 11:10 AM CDT) Potassium, P 4.5 3.6 - 5.2 mmol/L 12/06/2023 11:29 AM CDT [facility] Sodium, P 138 135 - 145 mmol/L 12/06/2023 11:29 AM CDT [facility] Chloride, P 104 98 - 107 mmol/L 12/06/2023 11:29 AM CDT [facility] Bicarbonate, P 24 22 - 29 mmol/L 12/06/2023 11:29 AM CDT [facility] Anion Gap, P 10 7 - 15 12/06/2023 11:29 AM CDT [facility] BUN (Blood Urea Nitrogen), P 30(H) 8 - 24 mg/dL 12/06/2023 11:29 AM CDT [facility] Creatinine 1.49(H) 0.74 - 1.35 mg/dL 12/06/2023 11:29 AM CDT [facility] Estimated GFR (eGFR) 45(L) >=60 mL/min/BSA 12/06/2023 11:29 AM CDT [facility] Comment: Estimated GFR calculated using the 2020 CKD_EPI creatinine equation. Calcium, Total, P 9.2 8.8 - 10.2 mg/dL 12/06/2023 11:29 AM CDT [facility] Glucose, P 123 70 - 140 mg/dL 12/06/2023 11:29 AM CDT [facility] Blood (Blood, Venous) 12/06/2023 11:10 AM CDT 12/06/2023 11:14 AM CDT Adam Powell P.A.-C. LAB BLOOD ADD-ON [facility] [address] [place] [address], [facility] [address] [place] [address] * (ABNORMAL) CBC with Differential, Blood (12/06/2023 11:10 AM CDT) Hemoglobin 12.5(L) 13.2 - 16.6 g/dL 12/06/2023 11:28 AM CDT [facility] Hematocrit 37.9(L) 38.3 - 48.6 % 12/06/2023 11:28 AM CDT [facility] Erythrocytes 3.99(L) 4.35 - 5.65 x10(12)/L 12/06/2023 11:28 AM CDT [facility] MCV 95.0 78.2 - 97.9 fL 12/06/2023 11:28 AM CDT [facility] RBC Distrib Width 12.5 11.8 - 14.5 % 12/06/2023 11:28 AM CDT [facility] Platelet Count 174 135 - 317 x10(9)/L 12/06/2023 11:28 AM CDT [facility] Leukocytes 4.0 3.4 - 9.6 x10(9)/L 12/06/2023 11:28 AM CDT [facility] Neutrophils 2.57 1.56 - 6.45 x10(9)/L 12/06/2023 11:28 AM CDT [facility] Lymphocytes 0.70(L) 0.95 - 3.07 x10(9)/L 12/06/2023 11:28 AM CDT [facility] Monocytes 0.63 0.26 - 0.81 x10(9)/L 12/06/2023 11:28 AM CDT [facility] Eosinophils 0.03 0.03 - 0.48 x10(9)/L 12/06/2023 11:28 AM CDT [facility] Basophils <0.03 0.01 - 0.08 x10(9)/L 12/06/2023 11:28 AM CDT [facility] Blood (Blood, Venous) 12/06/2023 11:10 AM CDT 12/06/2023 11:14 AM CDT Adam Powell P.A.-C. LAB BLOOD ADD-ON [facility] [address] [place] [address], [facility] [address] [place] [address] [facility] [address] [place] [address] documented in this encounter Visit Diagnoses Diagnosis Retention Urinary- Primary Hyperplasia Prostate Benign Localized With Obstruction Retention Urinary Hyperplasia Prostate Benign Localized With Obstruction documented in this encounter Care Teams Bathroom Tiling Professional Relationship Specialty Start Date End Date Elsewhere, Pcp PCP - General Internal Medicine 12/02/23 documented as of this encounter
--- OUTSIDE RECORDS SUMMARY | 2024-01-31 12:41 | XMS_ITS | Encounter Summary ---
Author Organization [facility] Address [address] [place] [id number] Care Team Providers Care Solder Sprayer Name Role Phone Elsewhere, Pcp Primary Care Provider Unavailabl e Reason for Visit * Reason Onset Date Comments Message from patient 12/26/2023 Nurse Assessment 12/26/2023 Encounter Details Date Type Department Care Team (Latest Contact Info) Description 12/26/2023 Clinical Communication Department of Urology in [place], [place] [address] [place] [phone] Shirley Villanueva APRN, C.N.P., M.S.N. [address] [place] [phone] Message from patient; Nurse Assessment Social History Tobacco Use Types Packs/Day Years Used Date Smoking Tobacco: Never Smokeless Tobacco: Never Alcohol Use Standard Drinks/Week Comments Not Currently 0 (1 standard drink = 0.6 oz pur e alcohol) [facility] Utilities Answer Date Recorded In the past 12 months has e electric, gas, oil, or water company [...] your living situation today? [facility] 12/13/2023 Sex and Gender Information Value Date Recorded Sex Assigned at Male 12/13/2023 1:46 PM CDT Gender Identity Male 12/13/2023 1:46 PM CDT Sexual Orientation Straight 12/13/2023 1: 46 PM CDT documented as of this encounter Miscellaneous Notes * Telephone Encounter - Fior Hernandez - 12/26/2023 8:16 AM CDT Images from the original note were not included. Rik Watson, We received this fax from Mr. Hunt. Would you like to place an order for a visit? Let me know how you would like to move forward and we can change his appts accordingly. Thank you! documented in this encounter Plan of Treatment Upcoming Encounters Date Type Department Care Team (Latest Contact Info) Description 02/21/2024 9:00 AM CDT Clinical Communication Virtual Review in [place], [place] [address] [place] [phone] 02/22/2024 3:45 PM CDT Office Visit Department of Urology in [place], [place] [address] [place] [phone] Shirley Villanueva APRN, C.N.P., M.S.N. [address] [place] [phone] documented as of this encounter Visit Diagnoses Not on filedocumented in this encounter Additional Health Concerns Infection Onset Date Last Indicated Resolved Time COVID19 Pending 01/09/2024 01/09/2024 01/29/2024 5 :45 AM CDT C. difficile 01/09/2024 01/09/2024 documented as of this encounter Care Teams Solder Sprayer Relationship Specialty Start Date End Date Elsewhere, Pcp PCP - General Internal Medicine 12/02/23 documented as of this encounter
--- OUTSIDE RECORDS SUMMARY | 2024-01-31 12:41 | XMS_ITS | Encounter Summary ---
Author Organization 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 [address] [place] [address] [facility] Referral ID Status Reason Start Date Expiration Date Visits Re quested Visits Authorized [id number] Closed 12/06/2023 12/05/2024 1 1 Encounter Details Date Type Department Care Team (Latest Contact Info) Description 12/13/2023 7:23 AM CDT - 12/13/2023 11:59 PM CDT Hospital Encounter Department of Radiology, [facility], in [place], [place] [address] [place] [address] Becki Prado M.D. [address] [place] [address] Retention Urinary; Hyperplasia Prostate Benign Localized With Obstruction Discharge Disposition: Home or Self Care Social History Tobacco Use Types Packs/Day Years Used Date Smoking Tobacco: Never Smokeless Tobacco: Never Alcohol Use Standard Drinks/Week Comments Not Currently 0 (1 standard drink = 0.6 oz pur e alcohol) [facility] Utilities Answer Date Recorded In the past [...] your living situation today? I have a [facility] place to live 12/13/2023 Sex and Gender Information Value Date Recorded Sex Assigned at Male 12/13/2023 1:46 PM CDT Gender Identity Male 12/13/2023 1:46 PM CDT Sexual Orientation Straight 12/13/2023 1: 46 PM CDT documented as of this encounter Medications at Time of Discharge Medication Sig Dispensed Refills Start Date End Date cholecalciferol, vitamin D3, 25 mcg (1,000 Unit) tablet Take 1,000 Units by mouth. 12/15/2021 multivitamin capsule Take 1 capsule by mouth daily. tamsulosin (FLOMAX) 0.4 mg 24 hr capsule Take 1 capsule (0.4 mg total) by mouth daily. 90 capsule 3 12/13/2023 zinc gluconate 50 mg tablet Take 50 mg by mouth daily with breakfast. fosfomycin (MONUROL) 3 gram packetIndications:Neuro genic Bladder,Urinary Tract Infection Site Not Specified Take 3 g by mouth as directed. Take one dose (3 grams) every 3 days for a total of 3 doses. 3 packet 12/04/2023 12/29/2023 documented as of this encounter Plan of Treatment Upcoming Encounters Date Type Department Care Team (Latest Contact Info) Description 02/21/2024 9:00 AM CDT Clinical Communication Virtual Review in [place], [place] [address] [place] [address] 02/22/2024 3:45 PM CDT Office Visit Department of Urology in [address] [phone] Shirley Villanueva APRN, C.N.P., M.S.N. 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 Becki Prado M.D. 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
--- OUTSIDE RECORDS SUMMARY | 2024-01-31 12:41 | XMS_ITS | Encounter Summary ---
Author Organization [facility] Address [address] [place] [phone] Care Team Providers Care Chronic Specialist Name Role Phone Elsewhere, Pcp Primary Care Provider Unavailabl e Encounter Details Date Type Department Care Team (Late st Contact Info) Description 12/02/2023 Clinical Communication Department of Urology in [place], [place] [address] [place] [address] Terra Junior M.D. [address] [place] [phone] Social History Tobacco Use Types Packs/Day Years [...] encounter Miscellaneous Notes * Telephone Encounter - Terra Junior M.D. - 12/02/2023 8:46 AM CDT Received ATC phone call from [facility] regarding Mr. Hunt, an 88M with neurogenic bladder who utilizes CIC. Last seen in our department in 2020, was not utilizing CIC at that time. Presented to [facility] today as he is unable to pass his catheter. ED attempted to place coude catheter without success, resistance around the prostate. Subsequent return of blood. They are calling requesting ED to ED transfer to placement of catheter or SPT. Recommended he present to nearest ED with urology capabilities as patient might require a catheter to be scoped in or SPT to be placed. Terra Junior M.D. PGY-2, Urology documented in this encounter Plan of Treatment Upcoming Encounters Date Type Department Care Team (Latest Contact Info) Description 02/21/2024 9:00 AM CDT Clinical Communication Virtual Review in [address] [phone] 02/22/2024 3:45 PM CDT Office Visit Department of Urology in [address] [phone] Shirley Villanueva APRN, C.N.P., M.S.N. [address] [place] [phone] documented as of this encounter Visit Diagnoses Not on filedocumented in this encounter Care Teams Chronic Specialist Relationship Specialty Start Date End Date Elsewhere, Pcp PCP - General Internal Medicine 12/02/23 documented as of this encounter
--- OUTSIDE RECORDS SUMMARY | 2024-01-31 12:41 | XMS_ITS | Encounter Summary ---
Author Organization [facility] Address [address] [place] [address] Care Team Providers Care Travel Attendants Name Role Phone Elsewhere, Pcp Primary Care Provider Unavailabl e Reason for Referral * Outpatient (Routine) - Closed Specialty Diagnoses / Procedures Referred By Contac t Referred To Contact Urology Shirley Villanueva APRN, C.NDarlene, M.S.N. [address] [place] [phone] [facility] Referral ID Status Reason Start Date Expiration Date Visits Re quested Visits Authorized [id number] Closed 12/29/2023 06/29/2025 1 1 Reason for Visit * Outpatient (Routine) - Closed Specialty Diagnoses / Procedures Referred By Contac t Referred To Contact Urology Shirley Villanueva APRN, C.NDarlene, M.S.N. [address] [place] [phone] [facility] Referral ID Status Reason Start Date Expiration Date Visits Re quested Visits Authorized [id number] Closed 12/26/2023 06/26/2025 1 1 Encounter Details Date Type Department Care Team (Late st Contact Info) Description 12/29/2023 11:00 AM CDT Office Visit Department of Urology in [place], [place] [address] [place] [phone] Shirley Villanueva APRN, C.N.P., M.S.N. [address] [place] [address] Retention Urinary (Primary Dx) Social History Tobacco Use Types Packs/Day Years Used Date Smoking Tobacco: Never Smokeless Tobacco: Never Alcohol Use Standard Drinks/Week Comments Not Currently 0 (1 standard drink = 0.6 oz pur e alcohol) [facility] Utilities Answer Date Recorded In the past [...] your living situation today? I have a [facility] place to live 12/13/2023 Sex and Gender Information Value Date Recorded Sex Assigned at Male 12/13/2023 1:46 PM CDT Gender Identity Male 12/13/2023 1:46 PM CDT Sexual Orientation Straight 12/13/2023 1: 46 PM CDT documented as of this encounter Progress Notes * Shirley Villanueva APRN, C.N.P., M.S.N. - 12/29/2023 11:00 AM CDT Images from the original note were not included. SUBJECTIVE CHIEF COMPLAINT / REASON FOR VISIT Urinary retention HISTORY OF PRESENT ILLNESS Mr. Hunt is a pleasant 88 y.o. male who presents today for follow up of urinary retention. I last saw him on 12/13/2023. Please see my previous note for details of that visit. Briefly, he had been doing clean intermittent catheterization for some time before presenting to the ED on multiple occasions in urinary retention and hematuria after being unable to pass catheters. He was treated for Pseudom onas UTI on 12/04/2023 which was treated with Fosfomycin. Creatinine 1.49, eGFR 45. TRUS - 27 cc gland. Cystoscopy showed moderate BPH, high-riding bladder neck, and large diverticulum. At our last meeting, we initiated Flomax and planned for a voiding trial and meeting with nursing staff to explore different catheter options. We also discussed outlet procedures, suprapubic tube, and sacral neuromodulation as potential options for treating his issue. He has sent a message via the patient portal that he had canceled the planned catheter session with our nursing staff and requested to meet with me. Mr. Hunt is preferring an indwelling catheter to CIC. He likes that he does not have to get up at night. He has had no hematuria or infectious urinary symptoms. 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 Current Outpatient Medications: cholecalciferol, vitamin D3, 25 mcg (1,000 Unit) tablet, Take 1,000 Units by mouth., Disp: , Rfl: multivitamin capsule, Take 1 [...] EXAMINATION General: Resting comfortably in the chair. : DIAGNOSTICS Labs: Lab Results Component Value Date NA 138 12/06/2023 CL 104 12/06/2023 BUN 30 (H) 12/06/2023 CO2 23 04/21/2022 HGB 12.5 (L) 12/06/2023 HCT 37.9 (L) 12/06/2023 WBC 4.0 12/06/2023 Lab Results Component Value Date CREATININE 1.49 (H) 12/06/2023 Microbiology/Culture Data: Microbiology Results (last 30 days) Procedure Component Value - Date/Time Bacterial Culture, Aerobic + Susceptibility, Urine [[id number]] (Abnormal) Collected: 12/04/23 0917 Lab Status: Final result Specimen: Urine, Straight Catheter Updated: 12/06/23 0902 Urine Culture PSEUDOMONAS AERUGINOSA 10,000-100,000 cfu/mL Comment: Susceptibilities performed on another specimen [id number] Bacterial Culture, Aerobic + Susceptibility, Urine [[id number]] (Abnormal) Collected: 12/02/23 1138 Lab Status: Final result Specimen: Urine, Straight Catheter Updated: 12/06/23 0904 Urine Culture PSEUDOMONAS AERUGINOSA 10,000-100,000 cfu/mL Comment: Gentamicin should not be used for P. aeruginosa. There are no gentamicin breakpoints for P. aeruginosa. Unable to perform susceptibility testing. Organism did not grow on test medium. Imaging: US Prostate Transrectal Result Date: 12/13/2023 Impression: Normal prostate ultrasound. ASSESSMENT / PLAN #1 Urinary retention #2 BPH It was my pleasure to see Mr. Hunt and his in clinic today for follow-up of urinary retention.We reviewed the options for management of urinary retention including CIC, indwelling catheters, and suprapubic tube. We compared and contrasted the risks and benefits of each. We discussed that he may need to perform CIC more frequently than four times daily to ensure adequate emptying and renal protection. He reports catheterized volumes of 400-500 mL. He does do CIC at bedtime. I recommended that he keep his appointment to meet with our nurses for CIC re- education and to trial different catheters. He was previously using a 14 Fr prior to his visits to the ED. He currently has a 16 Fr Motley that was placed on 12/06/2023. We discussed the indwelling catheters must be changed monthly. He would like to try different catheters for CIC at his nurse visit. We discussed the implication of his high-riding bladder neck for CIC. We will ask for the nurses expertise in ordering catheter supplies with enough catheters for CIC 5-6 times per day. He has had considerable difficulty with ordering. If he continues to have difficulty with catheterization, I would favor a suprapubic tube over continuing indwelling catheter. He and his are in agreement with this plan. I will see him back after CIC teaching for follow up. PLAN: CIC teaching visit Follow up after CIC teaching Signed by: Shirley Villanueva APRN, Susan.N.Omar., M.S.N. documented in this encounter Plan of Treatment Upcoming Encounters Date Type Department Care Team (Latest Contact Info) Description 02/21/2024 9:00 AM CDT Clinical Communication Virtual Review in [address] [phone] 02/22/2024 3:45 PM CDT Office Visit Department of Urology in [address] [phone] Shirley Villanueva APRN, C.N.P., M.S.N. [address] [place] [phone] Scheduled Referrals Name Type Priority Associated Diagnoses Orde r Schedule Urology office visit (clinic) Outpatient Referral Routine Expected: 12/29/2023, Expires: 03/29/2025 documented as of this encounter Visit Diagnoses Diagnosis Retention Urinary- Primary documented in this encounter Care Teams Travel Attendants Relationship Specialty Start Date End Date Elsewhere, Pcp PCP - General Internal Medicine 12/02/23 documented as of this encounter
--- OUTSIDE RECORDS SUMMARY | 2024-01-31 12:41 | XMS_ITS | Encounter Summary ---
Author Organization [facility] Address [address] [place] [address] Care Team Providers Care Dobie Worker Name Role Phone Elsewhere, Pcp Primary Care Provider Unavailabl e Reason for Referral * Outpatient (Routine) - Closed Specialty Diagnoses / Procedures Referred By Mira ricci Referred To Contact Diagnoses Retention Urinary Procedures Cystoscopy (specific provider) Shirley Villanueva APRN, C.NDarlene, M.S.N. [address] [place] [phone] Shirley Villanueva APRN, C.N.Vasquez, M.S.N. [address] [place] [phone] Referral ID Status Reason Start Date Expiration Date Visits Re quested Visits Authorized [id number] Closed 12/08/2023 12/07/2024 1 1 Encounter Details Date Type Department Care Team (Late st Contact Info) Description 12/08/2023 Clinical Communication Department of Urology in [place], [place] [address] [place] [phone] Shirley Villanueva APRN, C.NDarlene, M.S.N. [address] [place] [phone] Social History Tobacco Use Types Packs/Day Years [...] AM CDT Clinical Communication Virtual Review in [place], [place] [address] [place] [address] 02/22/2024 3:45 PM CDT Office Visit Department of Urology in [place], [place] [address] [place] [phone] Shirley Villanueva APRN, C.N.P., M.S.N. [address] [place] [phone] documented as of this encounter Visit Diagnoses Diagnosis Retention Urinary- Primary documented in this encounter Care Teams Dobie Worker Relationship Specialty Start Date End Date Elsewhere, Pcp PCP - General Internal Medicine 12/02/23 documented as of this encounter
--- OUTSIDE RECORDS SUMMARY | 2024-01-31 12:41 | XMS_ITS | Encounter Summary ---
Author Organization [facility] Address [address] [place] [id number] Care Team Providers Care Pump Stitcher Name Role Phone Elsewhere, Pcp Primary Care Provider Unavailabl e Reason for Visit * Reason Comments Urinary Retention Encounter Details Date Type Department Care Team (Late st Contact Info) Description 12/04/2023 8:01 AM CDT - 12/04/2023 10:49 AM CDT Emergency [facility] Emergency Department [address] [place] [phone] Cj Flood M[facility]. [facility] [address] [place] [phone] Retention Urinary (Primary Dx); Neurogenic Bladder; Urinary Tract Infection Site Not Specified Discharge Disposition: Home or Self Care Social [...] Sign Reading Time Taken Comments Blood Pressure 128/75 12/04/2023 10:00 AM CDT Pulse 95 12/04/2023 10:00 AM CDT Temperature 36.7 ??C (98.1 ??F) 12/04/2023 8:22 AM CD T Respiratory Rate 16 12/04/2023 8:07 AM CDT Oxygen Saturation 94% 12/04/2023 10:00 AM CDT Inhaled Oxygen Concentration - - Weight - - Height - - Body Mass Index - - documented in this encounter Discharge Instructions * Discharge Instructions* Cj Flood M.D. - 12/04/2023 10:38 AM CDT Follow-up with your primary care provider and your urologist as an outpatient. Take the antibioticsthat were previously prescribed. This prescription has been moved to the [facility] pharmacy. Return to the emergency department if you can not drain your bladder at least 3 times per day, you develop abdominal pain, fevers, nausea, vomiting or other concerning symptoms. documented in this encounter Medications at Time of Discharge Medication Sig Dispensed Refills Start Date End Date cholecalciferol, vitamin D3, 25 mcg (1,000 Unit) tablet Take 1,000 Units by mouth. 12/15/2021 multivitamin capsule Take 1 capsule by mouth daily. zinc gluconate 50 mg tablet Take 50 mg by mouth daily with breakfast. aspirin [address] tablet Take 81 mg by mouth daily. 12/06/2023 fosfomycin (MONUROL) 3 gram packetIndications:Neurog enic Bladder,Urinary Tract Infection Site Not Specified Take 3 g by mouth as directed. Take one dose (3 grams) every 3 days for a total of 3 doses. 3 packet 12/04/2023 12/29/2023 documented as of this encounter ED Notes * Cj Flood M.D. - 12/04/2023 8:19 AM CDT SUBJECTIVE CHIEF COMPLAINT/REASON FOR VISIT Urinary Retention HISTORY OF PRESENT ILLNESS Sreedhar Hunt is a 88-year-old male with a history of CKD stage 3b and anemia who presents to the Emergency Department for the evaluation of urinary retention. He self catheterizes at his home with no issues for over five years; however, three days ago, he was unable to do so and presented to the [facility] for evaluation. They were unable to pass a catheter there and he was referred to [facility] ED where Urology was consulted and a tech came down to place a catheter for him. The tech experienced some resistance and had to exchange his catheter for a smaller size (16 Fr) which was placed without difficulty. The patient returned home and had difficulty placing the 16 Fr that night. He was ab le to successfully cath the next morning (yesterday) at 1030 but has experienced difficulty since. He reports using his catheter four times a day and states he has not been able to void urine completely due to his catheter problem. He also reports producing dark red blood with extraction of his catheter. He endorses feeling some pressure in his abdomen but denies any associated abdominal pain pain, distention, or back pain. He denies pain, fever, chills, sore throat, cough, chest pain, nausea, or diarrhea. The patient is not on blood thinners. There are no other concerns at this time. 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 HENT: Negative for sore throat. Respiratory: Negative for cough. Cardiovascular: Negative for chest pain. Gastrointestinal: Negative for abdominal distention, abdominal pain, diarrhea and nausea. Genitourinary: Negative for penile pain. Positive for difficulty with self-cath. Musculoskeletal: Negative for back pain. OBJECTIVE Initial Vitals Temperature 12/04/23 0813 36.5 ??C Pulse Rate 12/04/23 0807 (!) 113 Heart Rate -- Resp Rate 12/04/23 0807 16 Blood Pressure 12/04/23 0807 159/72 SpO2 12/04/23 0807 98 % Pain Score -- PHYSICAL EXAMINATION Constitutional: Nursing note and vitals reviewed. HENT: Head: Normocephalic. Eyes: Conjunctivae are normal. Cardiovascular: Normal rate and regular rhythm. Edema: no edema noted No lower extremity edema. Pulmonary/Chest: Effort normal and breath sounds normal. There is normal air entry. Abdominal: There is no abdominal tenderness. There is no rebound, no guarding and no CVA tenderness. No CVA tenderness Neurological: Alert. He is not disoriented. Skin: Skin is warm and dry. ASSESSMENT/PLAN Assessment and Plan #1 Urinary retention In summary, this is an 88-year-old gentleman who self catheterizes and presents with difficulty passing a catheter over the last 2 days after traumatic catheterization on Monday. The patient is afebrile, tachycardic, but normotensive, and saturating well on room air. He is well-appearing. He doesnot have abdominal pain or back pain, although he feels some fullness in his bladder. I do not think this represents pyelonephritis or acute clot retention. I do not think it is likely he has a traumatic urethral injury as he was already having some difficulty passing catheters prior to the difficult catheterization on Monday. I do not think that imaging is necessary. While he may have a UTI, he does not have symptoms suggestive of infection right now and he has already been planned to start on fosfomycin which he has not yet picked up from pharmacy. We will have Urology technicians attemptto pass a catheter and see if he can be fully drained. Bladder scan showed about 500 cc in the bladder. We will check laboratory studies for signs of acute kidney injury or electrolyte derangements. We will obtain urine samples to further evaluate for possible UTI, although he is on antibiotics (has not yet started fosfomycin). I do not think any imaging is necessary at this time. . I reviewed the following external records: office records. ED Course as of 12/04/231740 Mon Dec 04, 2023 1038 CBC shows anemia compared to recent value, but the patient has no signs of active bleeding. Hehas no leukocytosis. There is a left shift. BMP shows stable creatinine compared to previous. Electrolytes are reassuring. Urine was obtained and does show greater than 100 white blood cells and bacteria. He has known growth of Pseudomonas. He had not started the fosfomycin that was prescribed. Urology was able to drain his bladder. Urine was clear. They gave him tips on how to drain the bladder while laying down as that seems to be more effective. 1039 On my reassessment, the patient is feeling well. He is comfortable going home. He has no signsof systemic illness and he can be managed as an outpatient for the possible urinary tract infection. I have moved the prescription for fosfomycin to [facility] as he had not been able to pick it up yet. I have given him return precautions all questions were answered. Final Diagnoses: as of 04/01/24 1741 Retention Urinary I personally performed the services described in this documentation, as scribed in my presence, andit is both accurate and complete. Cj Flood M.D. 12/04/23 1746 * Christiano Temple R.N., RETA, KAISE - 12/04/2023 8:08 AM CDT Patient presents at ED for urinary retention. Patient caths at home for last 5 years with no issue.Patient states 5 days ago he began having trouble emptying his bladder. Patient states there was a traumatic catheterization here this past Monday and now he is having trouble inserting a catheter completely. Patient is noted to be tachycardic. Patient states he feels like his bladder is full. Christiano Temple R.N., RETA, KASIE 12/04/23 0810 documented in this encounter Plan of Treatment Upcoming Encounters Date Type Department Care Team (Latest Contact Info) Description 02/21/2024 9:00 AM CDT Clinical Communication Virtual Review in [address] [phone] 02/22/2024 3:45 PM CDT Office Visit Department of Urology in [address] [phone] Shirley Villanueva APRN, C.N.P., M.S.N. [address] [place] [phone] documented as of this encounter Procedures Procedure Name Priority Date/Time Associated Diagnosis Comments HC OSMOLALITY ASSAY URINE STAT 12/04/2023 9:17 AM CDT DIPSTICK, U STAT 12/04/2023 9:17 AM CDT PH, RANDOM, U STAT 12/04/2023 9:17 AM CDT MICROSCOPIC MANUAL STAT 12/04/2023 9: 17 AM CDT BACTERIAL CULTURE, AEROBIC + SUSC, URINE STAT 12/04/2023 9:17 AM CDT URINALYSIS WITH MICROSCOPIC STAT 12/04/2023 9:17 AM CDT CBC WITH DIFFERENTIAL, B STAT 12/04/2023 9:00 AM CDT BASIC METABOLIC PANEL, S/P STAT 12/04/2023 9:00 AM CDT documented in this encounter Results * (ABNORMAL) Dipstick, Urine (12/04/2023 9:17 AM CDT) Hemoglobin, QL, U Moderate(A) Negative 12/04/2023 10:01 [...] Cj Flood M.D. LAB URINE ANTONIO PAGAN [facility] [address] [place] [address], [facility] [address] [place] [address] * Osmolality, Urine (12/04/2023 9:17 AM CDT) Osmolality, U 598 150 - 1150 mOsm/kg 12/04/2023 10:34 AM CDT DTL Urine 12/04/2023 9:17 AM CDT 12/04/2023 9:57 AM CDT Cj Flood M.D. LAB URINE ANTONIO PAGAN Performing Organization Address [facility] Co de Phone Number [facility] 200 [place] [address], [facility] [address] [place] [address] * pH, Random, Urine (12/04/2023 9:17 AM CDT) pH, Random, U 5.5 4.5 - 8.0 12/04/2023 10:34 AM CDT DTL Urine 12/04/2023 9:17 AM CDT 12/04/2023 9:57 AM CDT Cj Flood M.D. LAB URINE ANTONIO PAGAN Performing Organization Address [facility] Co de Phone Number [facility] [address] [place] [address], [facility] [address] [place] [address] * (ABNORMAL) Microscopic Manual (12/04/2023 9:17 AM CDT) Microscopy Abnormal 12/04/2023 10:34 AM CDT DTL RBC 3-10(A) <3 /hpf 12/04/2023 10:34 AM CDT DTL Dysmorphic RBC <25 <25 % 12/04/2023 10:34 AM CDT DTL WBC >100(A) /hpf 12/04/2023 10:34 AM CDT DTL Comment: ----REFERENCE VALUE---- <4 ??(Males) <11 (Females) Bacteria Present(A) 12/04/2023 10:34 AM CDT DTL Urine 12/04/2023 9:17 AM CDT 12/04/2023 9:57 AM CDT Cj Flood M.D. LAB URINE ORDJj PAGAN Performing Organization Address City/[facility] Co de Phone Number [facility] [address] [place] [address], [facility] [address] [place] [address] * (ABNORMAL) Bacterial Culture, Aerobic + Susceptibility, Urine (12/04/2023 9:17 AM CDT) Urine Culture PSEUDOMONAS AERUGINOSA 10,000-100,000 cfu/mL (A) 12/06/2023 9:02 AM CDT DTL Comment:Susceptibilities per formed on another specimen [id number] Urine (Urine, Straight Catheter) 12/04/2023 9:17 AM CDT 12/04/2023 11:26 AM CDT Comment:Specimen Source Site : Urine Cj Flood M.D. LAB MICROBIOLO GY - GENERAL ORDERABLES Performing Organization Address [facility] Co de Phone Number [facility] [address] [place], [place] [phone] [place] [address] 200 [place] [address] * (ABNORMAL) Urinalysis, with Microscopic: Urine, Straight Catheter (12/04/2023 9:17 AM CDT) Source Urine, Urine, Straight Catheter 12/04/2023 9:57 [...] Cj Flood M.D. LAB URINE ANTONIO PAGAN [facility] [address] [place] [address], [place] [facility] [address] [place] [address] * (ABNORMAL) Basic Metabolic Panel (12/04/2023 9:00 AM CDT) Potassium, P 4.4 3.6 - 5.2 mmol/L 12/04/2023 9:21 AM CDT ST[facility] Sodium, P 141 135 - 145 mmol/L 12/04/2023 9:21 AM CDT [facility] Chloride, P 108(H) 98 - 107 mmol/L 12/04/2023 9:21 AM CDT [facility] Bicarbonate, P 24 22 - 29 mmol/L 12/04/2023 9:21 AM CDT [facility] Anion Gap, P 9 7 - 15 12/04/2023 9:21 AM CDT [facility] BUN (Blood Urea Nitrogen), P 34(H) 8 - 24 mg/dL 12/04/2023 9:21 AM CDT [facility] Creatinine 1.60(H) 0.74 - 1.35 mg/dL 12/04/2023 9:21 AM CDT [facility] Estimated GFR (eGFR) 42(L) >=60 mL/min/BSA 12/04/2023 9:21 AM CDT [facility] Comment: Estimated GFR calculated using the 2020 CKD_EPI creatinine equation. Calcium, Total, P 9.1 8.8 - 10.2 mg/dL 12/04/2023 9:21 AM CDT [facility] Glucose, P 107 70 - 140 mg/dL 12/04/2023 9:21 AM CDT [facility] Blood (Blood, Venous) 12/04/2023 9:00 AM CDT 12/04/2023 9:04 AM CDT Cj Flood M.D. LAB BLOOD ADD- ON [facility] [address] [place] [address], [facility] ST[facility] [address] [place] [address] * (ABNORMAL) CBC with Differential, Blood (12/04/2023 9:00 AM CDT) Hemoglobin 12.8(L) 13.2 - 16.6 g/dL 12/04/2023 9:07 AM CDT [facility] Hematocrit 39.2 38.3 - 48.6 % 12/04/2023 9:07 AM CDT [facility] Erythrocytes 4.08(L) 4.35 - 5.65 x10(12)/L 12/04/2023 9:07 AM CDT [facility] MCV 96.1 78.2 - 97.9 fL 12/04/2023 9:07 AM CDT [facility] RBC Distrib Width 12.6 11.8 - 14.5 % 12/04/2023 9:07 AM CDT [facility] Platelet Count 160 135 - 317 x10(9)/L 12/04/2023 9:07 AM CDT [facility] Leukocytes 8.0 3.4 - 9.6 x10(9)/L 12/04/2023 9:07 AM CDT [facility] Neutrophils 6.59(H) 1.56 - 6.45 x10(9)/L 12/04/2023 9:07 AM CDT DH[facility] Lymphocytes 0.53(L) 0.95 - 3.07 x10(9)/L 12/04/2023 9:07 AM CDT [facility] Monocytes 0.85(H) 0.26 - 0.81 x10(9)/L 12/04/2023 9:07 AM CDT [facility] Eosinophils <0.03 0.03 - 0.48 x10(9)/L 12/04/2023 9:07 AM CDT [facility] Basophils <0.03 0.01 - 0.08 x10(9)/L 12/04/2023 9:07 AM CDT [facility] Blood (Blood, Venous) 12/04/2023 9:00 AM CDT 12/04/2023 9:04 AM CDT Cj Flood M.D. LAB BLOOD ADD- ON [facility] [address] [place] [address], [facility] [address] [place] [address] [facility] [address] [place] [address] documented in this encounter Visit Diagnoses Diagnosis Retention Urinary- Primary Neurogenic Bladder Urinary Tract Infection Site Not Specified documented in this encounter Care Teams Pump Stitcher Relationship Specialty Start Date End Date Elsewhere, Pcp PCP - General Internal Medicine 12/02/23 documented as of this encounter
--- OUTSIDE RECORDS SUMMARY | 2024-01-31 12:41 | XMS_ITS | Encounter Summary ---
Author Organization [facility] Address [address] [place] [phone] Care Team Providers Care First Aid Director Name Role Phone Elsewhere, Pcp Primary Care Provider Unavailabl e Reason for Visit * Reason Comments Urinary Retention UCO/VT and CIC reinf orcement * Outpatient (Routine) - Closed Specialty Diagnoses / Procedures Referred By Mira ricci Referred To Contact Diagnoses Retention Urinary Procedures URO Urethral cath removal & voiding trial (UCO/VT) Shirley Villanueva APRN C.N.P., M.S.N. [address] [place] [phone] [facility] Referral ID Status Reason Start Date Expiration Date Visits Re quested Visits Authorized [id number] Closed 12/13/2023 12/12/2024 1 1 Encounter Details Date Type Department Care Team (Late st Contact Info) Description 01/08/2024 10:00 AM CDT Procedure visit Department of Urology in [place], [place] [address] [place] [phone] Shirley Villanueva APRN, C.N.P., M.S.N. [address] [place] [phone] Faina Perez R.NZeeshan [address] [place] [phone] Retention Urinary Social History Tobacco Use Types Packs/Day Years Used Date Smoking Tobacco: Never Smokeless Tobacco: Never Alcohol Use Standard Drinks/Week Comments Not Currently 0 (1 standard drink = 0.6 oz pur e alcohol) [facility] Utilities Answer Date Recorded In the [...] your living situation today? I [facility] a [facility] to live 12/13/2023 Sex and Gender Information Value Date Recorded Sex Assigned at Male 12/13/2023 1:46 PM CDT Gender Identity Male 12/13/2023 1:46 PM CDT Sexual Orientation Straight 12/13/2023 1: 46 PM CDT documented as of this encounter Progress Notes * Fiana Perez RZeeshanN. - 01/08/2024 10:00 AM CDT CHIEF COMPLAINT Reason for visit, urinary catheter removal post: ER visit for urine retention after he could not pass his own catheters on December 13, 2023. IMPRESSION/REPORT/PLAN Nursing Intervention: Patient instilled with 200 mL's sterile normal saline prior to catheter removal. Patient was unable to void. Patient tolerated procedure well. Patient education: use of incontinence pads and leakage of urine , to push fluids , increased frequency/urgency , to urinate 2 more times before leaving the clinic and if they urinate to their satisfaction they may leave , to urinate often , and to return to clinic if having voiding issues if before 4PM, if after hours to report to their local emergency room if unable to void Since he usually is unable to urinate unless his bladder is > 800 ml, he will continue to catheterize up to 6 times per day. CHIEF COMPLAINT/REASON FOR VISIT Intermittent self-catheterization teaching IMPRESSION/REPORT/PLAN Patient is here for intermittent self-catheterization teaching as ordered by Shirley Villanueva. Patient instructed on schedule for intermittent self-catheterization as ordered: Every 4 hours. Supplies sent with patient: Supplies to perform self-catheterization SIC Order Indication: Chronic urinary retention Frequency: 6 times per day Duration: Permanently Catheter Size: 16F Catheter Type: Straight Lubricant: 8/month Dispense: 2/month documented in this encounter Plan of Treatment Upcoming Encounters Date Type Department Care Team (Latest Contact Info) Description 02/21/2024 9:00 AM CDT Clinical Communication Virtual Review in [place], [place] 200 [place] [phone] 02/22/2024 3:45 PM CDT Office Visit Department of Urology in [address] [phone] Shirley Villanueva APRN, C.N.P., M.S.N. [address] [place] [phone] documented as of this encounter Visit Diagnoses Diagnosis Retention Urinary documented in this encounter Care Teams First Aid Director Relationship Specialty Start Date End Date Elsewhere, Pcp PCP - General Internal Medicine 12/02/23 documented as of this encounter
--- OUTSIDE RECORDS SUMMARY | 2024-01-31 12:41 | XMS_ITS | Encounter Summary ---
Author Organization [facility] Address [address] [place] [address] Care Team Providers Care Sewer Separation Designer Name Role Phone Elsewhere, Pcp Primary Care Provider Unavailabl e Reason for Referral * Outpatient (Routine) - Closed Specialty Diagnoses / Procedures Referred By Contac t Referred To Contact Diagnoses Retention Urinary Procedures URO Urethral cath removal & voiding trial (UCO/VT) Shirley Villanueva APRN, C.NDarlene, M.S.N. [address] [place] [phone] [facility] Referral ID Status Reason Start Date Expiration Date Visits Re quested Visits Authorized [id number] Closed 12/13/2023 12/12/2024 1 1 * Outpatient (Routine) - Closed Specialty Diagnoses / Procedures Referred By Contac t Referred To Contact Urology Shirley Villanueva APRN, C.NDarlene, M.S.N. [address] [place] [phone] [facility] Referral ID Status Reason Start Date Expiration Date Visits Re quested Visits Authorized [id number] Closed 12/13/2023 06/13/2025 1 1 Reason for Visit * Outpatient (Routine) - Closed Specialty Diagnoses / Procedures Referred By Mira ricci Referred To Contact Urology Diagnoses Retention Urinary Becki Prado M.D. [address] [place] [phone] [facility] Referral ID Status Reason Start Date Expiration Date Visits Re quested Visits Authorized [id number] Closed 12/06/2023 06/06/2025 1 1 Encounter Details Date Type Department Care Team (Latest Contact Info) Description 12/13/2023 2:30 PM CDT Comprehensive Visit Department of Urology in [place], [place] [address] [place] [phone] Shirley Villanueva APRN, C.N.P., M.S.N. [address] [place] [phone] Retention Urinary Social History Tobacco Use Types Packs/Day Years Used Date Smoking Tobacco: Never Smokeless Tobacco: Never Alcohol Use Standard Drinks/Week Comments Not Currently 0 (1 standard drink = 0.6 oz pur e alcohol) [facility] Utilities Answer Date Recorded In the past 12 months has e [employer], gas, oil, or water [employer] threatened to shut off services in your [...] Date Recorded Dental: Regular Dentist Yes 12/13/19 24 Employment Answer Date Recorded Employment status Retired [...] * Shirley Villanueva APRN, C.N.P., M.S.N. - 12/13/2023 2:30 PM CDT Images from the original note were not included. REFERRAL SOURCE: The patient is being seen in consultation at the request of Becki Prado M.D. [address] [place] [phone]. SUBJECTIVE HISTORY OF PRESENT ILLNESS Mr. Hunt is a pleasant 88 y.o. male with a history of MGUS, sciatica, osteoarthritis, and stage 3 chronic kidney disease who presents today for urinary retention. Recent records were reviewed. He recently presented to the ED on numerous occasions for evaluation of urinary retention. (12/02/2023, 09/2023, 12/06/2023). He has a known bladder outlet obstruction, recurrent urinary tract infections, and urinary retention requiring clean intermittent catheterization. He was previously seen by Dr. Franco in 2020 for this issue. Workup that time included cystoscopy which demonstrated moderate lateral lobe hyperplasia and large diverticulum and a urodynamic study with findings consistent with moderate bladder outlet obstruction in the setting of large bladder diverticulum and elevated postvoidresidual of [address] Franco discussed continue clean intermittent catheterization versus PVP. Patient elected to continue with clean intermittent catheterization. Since that time, he has been performing clean intermittent catheterization multiple times daily with a 14 Colombian coude catheter. In the week leading up to his emergency room visits he was having difficulty passing the catheter. On 12/06/2023, an 18 Colombian catheter was placed without difficulty. Urine culture on 12/04/2023 grew Pseudomonas aeruginosa which was treated with fosfomycin. He denies any bothersome urinary symptoms leading up to episodes of difficulty catheterizing. He maintains a daily bladder diary on his in calendar which he shared with me today. He catheterizes regularly 4-5 times per day With a 14 Colombian coude catheter. He feels that the curve tip may not be optimal as it tends to buckle while he is passing it. He reports that he is able to sense of full bladder around 800 mL. He can pass 100 mL of urine prior to catheterizing if his bladder is full. He denies urinary tract infections other than the recent infection discovered at ED visit. He reports being frustrated with ordering catheters. He does have 30 16 Colombian catheters that he obtained from the [employer], but they needed to be ordered. He also has an order through [employer] for a three-month supply that is pending. He feels that catheters used in the ED which were 16 Colombian and 18 Colombian passed easily and would like to try the sizes in straight tip and coude. Past Medical History: Diagnosis Date Kidney And Ureter Disorder No past surgical history on file. Current Outpatient Medications: cholecalciferol, vitamin D3, 25 mcg (1,000 Unit) tablet, Take 1,000 Units by mouth., Disp: , Rfl: fosfomycin (MONUROL) 3 gram packet, Take 3 g by mouth as directed. Take one dose (3 grams) every 3 days for a total of 3 doses., Disp: 3 packet, Rfl: 0 multivitamin capsule, Take 1 capsule [...] Date/Time Bacterial Culture, Aerobic + Susceptibility, Urine [[id number]] (Abnormal) Collected: 12/04/23 0917 Lab Status: Final result Specimen: Urine, Straight Catheter Updated: 12/06/23 09 Urine Culture PSEUDOMONAS AERUGINOSA 10,000-100,000 cfu/mL Comment: Susceptibilities performed on another specimen [id number] Bacterial Culture, Aerobic + Susceptibility, Urine [[id number]] (Abnormal) Collected: 12/02/23 1138 Lab Status: Final result Specimen: Urine, Straight Catheter Updated: 12/06/23 09 Urine Culture PSEUDOMONAS AERUGINOSA 10,000-100,000 cfu/mL Comment: Gentamicin should not be used for P. aeruginosa. There are no gentamicin breakpoints for P. aeruginosa. Unable to perform susceptibility testing. Organism did not grow on test medium. Imaging: US Prostate Transrectal Result Date: 12/13/2023 Impression: Normal prostate ultrasound. ASSESSMENT / PLAN #1 Urinary retention #2 Benign prostatic hyperplasia It was my pleasure to meet Mr. Hunt in clinic today for evaluation of urinary retention. We discussed possible causes and contributors to urinary retention in men including acute bacterialprostatitis, benign prostatic hypertrophy, phimosis, prostate cancer, bladder tumor, cystitis, urethritis, UTI, STI, constipation, or neurogenic bladder related to neurologic disease, diabetic neuropathy, or overflow incontinence. Together we reviewed his diagnostic test results. On transrectal ultrasound, his prostate measured 27 g. His most recent creatinine was 1.49, eGFR 45. Cystoscopy demonstrated moderate BPH, large wide-mouth diverticulum, and high- riding bladder neck. There was no evidence of stricture. We discussed the diagnostic benefit of cystoscopy for surgical planning to treat BPH and detecting evidence of obstruction. We discussed the utility of urodynamic studies to evaluate bladder function (detrusor andsphincter) in patients with neurogenic bladder to guide management. We discussed the likelihood that he would pass a voiding trail given the recent visits to the ED and recent UTI. We discussed that indwelling catheters (urethral or suprapubic) can be used for short-term or long-term bladder management. We discussed the potential complications of indwelling catheters including bacteriuria, UTI, urosepsis, and urethral damage. Additional complications of suprapubic catheters include leakage around the catheter, bladder stone formation, and catheter obstruction. We briefly discussed surgical treatments including bladder outlet procedure for obstructive urinaryretention or sacral neuromodulation for nonobstructive urinary retention. I provided him with a brochure for sacral neuromodulation. We discussed the benefit of alpha blockers to relax the bladder neck side and allow passage of catheter given moderate BPH seen on cystoscopy. Side effects were reviewed. He is interested in trialingthis medication. We discussed meeting with the Urology nurse team to remove indwelling catheter, review CIC, and explore different catheter options that he feels may work better. He would like to try straight tip andCoude in 16 Fr and 18 Fr. PLAN: Follow up in 2 weeks with catheter removal and CIC teaching review Signed by: Shirley Villanueva APRN, C.N.Omar., M.S.N. Answers submitted by the patient for this visit: Urinary Symptoms (Submitted on 12/13/2023) Strong urge to urinate: Yes None of the above: Yes None of the above: Yes Are you able to sense when your bladder is full?: Yes How many times daily do you typically urinate during the day?: 4 How many times do you typically wake up and urinate at night?: 1 Have you had a urinary tract infection (UTI) within the past 1 year, and if so how many?: not applicable Have you had any kidney infections or required hospitalized for kidney failure?: No Have you required a catheter placed because you could not empty your bladder?: Yes Do you ever unintentionally leak urine?: No Have you ever or are currently taking any treatments to treat your urinary symptoms?: none Have you ever had any surgical or office procedures to improve your urinary symptoms?: No documented in this encounter Plan of Treatment Upcoming Encounters Date Type Department Care Team (Latest Contact Info) Description 02/21/2024 9:00 AM CDT Clinical Communication Virtual Review in [place], [place] [address] [place] [phone] 02/22/2024 3:45 PM CDT Office Visit Department of Urology in [place], [place] [address] [place] [phone] Shirley Villanueva APRN, C.N.P., M.S.N. [address] [place] [phone] Scheduled Orders Name Type Priority Associated Diagnoses Orde r Schedule URO Urethral cath removal & voiding trial (UCO/VT) Procedure Routine Retention Urinary Expected: 12/27/2023, Expires: 03/13/2025 Scheduled Referrals Name Type Priority Associated Diagnoses Orde r Schedule Urology nurse visit (clinic) Outpatient Referral Routine Expected: 12/27/2023, Expires: 03/13/2025 documented as of this encounter Visit Diagnoses Diagnosis Retention Urinary documented in this encounter Care Teams Sewer Separation Designer Relationship Specialty Start Date End Date Elsewhere, Pcp PCP - General Internal Medicine 12/02/23 documented as of this encounter
--- OUTSIDE RECORDS SUMMARY | 2024-01-31 12:41 | XMS_ITS | Encounter Summary ---
Author Organization [facility] Address [address] [place] [phone] Care Team Providers Care Human Resources Compliance Manager Name Role Phone Elsewhere, Pcp Primary Care Provider Unavailabl e Reason for Referral * Outpatient (Routine) - Closed Specialty Diagnoses / Procedures Referred By Mira ricci Referred To Contact Diagnoses Retention Urinary Procedures Cystoscopy Shirley Villanueva APRN, C.NDarlene, M.S.N. [address] [place] [phone] [facility] Referral ID Status Reason Start Date Expiration Date Visits Re quested Visits Authorized [id number] Closed 12/13/2023 12/12/2024 1 1 Reason for Visit * Outpatient (Routine) - Closed Specialty Diagnoses / Procedures Referred By Mira ricci Referred To Contact Diagnoses Retention Urinary Procedures Cystoscopy (specific provider) Shirley Villanueva APRN, C.NDarlene, M.S.N. [address] [place] [phone] Shirley Villanueva APRN, C.NDarlene, M.S.N. [address] [place] [phone] Referral ID Status Reason Start Date Expiration Date Visits Re quested Visits Authorized [id number] Closed 12/08/2023 12/07/2024 1 1 Encounter Details Date Type Department Care Team (Late st Contact Info) Description 12/13/2023 10:30 AM CDT Procedure visit Department of Urology in [place], [place] [address] [place] [phone] Shirley Villanueva APRN, C.N.P., M.S.N. [address] [place] [phone] Retention Urinary Social History Tobacco Use Types Packs/Day Years Used Date Smoking Tobacco: Never Smokeless Tobacco: Never Alcohol Use Standard Drinks/Week Comments Not Currently 0 (1 standard drink = 0.6 oz pur e alcohol) [facility] Utilities Answer Date Recorded In the [...] your living situation today? I have a [facility] place to live 12/13/2023 Sex and Gender Information Value Date Recorded Sex Assigned at Male 12/13/2023 1:46 PM CDT Gender Identity Male 12/13/2023 1:46 PM CDT Sexual Orientation Straight 12/13/2023 1: 46 PM CDT documented as of this encounter Progress Notes * Promise Jones - 12/13/2023 10:30 AM CDT Patient here for a cystoscopy performed by Shirley Villanueva APRN, BLACK LEATHER TRIMMER, MSN Cystoscope CYF-VH #[id number] was used during today's cystoscopy procedure. Accessories used: cystoscope reusable (sterilized) stop cock . Load number from processing via [employer]: [id number] Urines sent: No 4. Was dye used? No documented in this encounter Procedure Notes * Shirley Villanueva APRN, C.N.PZeeshan, M.S.N. - 12/13/2023 10:30 AM CDTAssociated Order(s): Cystoscopy Post-Procedure Diagnose(s): Retention Urinary Cystoscopy Performed by: Shirley Villanueva APRN, C.N.PZeeshan, M.S.N. Authorized by: Shirley Villanueva APRN C.N.P., M.S.N. Care team members present 1. Shirley Villanueva APRN, C.N.P., M.S.N. 2. Promise Jones Additional procedures performed: cystoscopy PROCEDURE DETAILS: Blue light imaging agent used: yes Fluoroscopy: Fluoroscopic image guidance used to localize target, identify at risk structures, and dynamically used to direct therapy to the target. Image(s) acquired and saved. A flexible cystoscope was inserted through the urethra into the bladder. Cystoscope was removed at the end of procedure. Mr. Hunt is a pleasant 88-year-old who presents for evaluation of urinary retention. He has a longstanding history of clean intermittent catheterization for the past 4 years. Is recently presented tot ED on several occasions due to difficulty passing a catheter. Transrectal ultrasound this morning demonstrated a 27 g gland. The patient was brought to cystoscopy suite and placed in lithotomy position. He was prepped and draped in the standard fashion. Patient identification was completed per protocol. Verbal consent was obtained. A flexible cystoscope was inserted through the urethra into the bladder. Urethroscopy demonstrated normal- appearing urethra mucosa, no evidence of stricture, and high-riding bladder neck. Urethral sphincter coapted appropriately. Prostatic urethra moderate lateral lobe hyperplasia. Upon entrance into the bladder, lujan cystoscopy was performed. Significant bladder wall trabeculation. Several erythematous areas and bullous edema on the posterior wall near the dome consistent with catheteri zation. 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 Erythematous lesion without obvious papillary features within diverticulum noted, possibly a result of catheterization into diverticulum. No stones or foreign bodies. Ureteral orifices were identified in their orthotopic position bilaterally. Retroflex view demonstrated moderate intravesical protrusion. Cystoscope was then removed, patient tolerated the procedure well. 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 PRE-PROCEDURE DETAILS Procedure purpose: Diagnostic Appropriate hand hygiene, gown, cap, mask, protective eyewear, sterile gloves, skin preparation, sterile drape, and strict aseptic technique were utilized as applicable for the procedure.: yes Site preparation: Povidone-iodine SEDATION / ANESTHESIA Anesthesia method: none POST-PROCEDURE DETAILS Procedure completed successfully: yes Complications: no apparent complications documented in this encounter Plan of Treatment Upcoming Encounters Date Type Department Care Team (Latest Contact Info) Description 02/21/2024 9:00 AM CDT Clinical Communication Virtual Review in [place], [place] [address] [place] [address] 02/22/2024 3:45 PM CDT Office Visit Department of Urology in [place], [place] [address] [place] [phone] Shirley Villanueva APRN, C.N.P., M.S.N. [address] [place] [phone] documented as of this encounter Procedures Procedure Name Priority Date/Time Associated Diagnosis Comments URO CYSTOSCOPY (GENERAL) Routine 12/13/2023 10:30 AM CDT Retention Urinary documented in this encounter Results * Cystoscopy (12/13/2023 10:30 AM CDT) Narrative Shirley Villanueva APRN, C.N.Vasquez, M.S.N. - 12/13/2023 10:30 AM CDT Shirley Villanueva APRN, C.NDarlene, M.S.N. ? 12/13/2023 10:33 AM Cystoscopy Performed by: Shirley Villanueva APRN, C.NDarlene, M.S.N. Authorized by: Shirley Villanueva APRN, C.NDarlene, M.S.N. ?? Care team members present 1. Shirley Villanueva APRN, C.NDarlene, M.S.N. 2. Promise Jones Additional procedures performed: [...] Shirley Villanueva APRN, C.N.P., M.S.N. UROLOGY ORDERABLES documented in this encounter Visit Diagnoses Diagnosis Retention Urinary documented in this encounter Care Teams Human Resources Compliance Manager Relationship Specialty Start Date End Date Elsewhere, Pcp PCP - General Internal Medicine 12/02/23 documented as of this encounter
--- OUTSIDE RECORDS SUMMARY | 2024-01-31 12:41 | XMS_ITS | Encounter Summary ---
Author Organization [facility] Address [address] [place] [address] Care Team Providers Care Director Of Home Health Services Name Role Phone Elsewhere, Pcp Primary Care Provider Unavailabl e Reason for Visit * Reason Comments Diarrhea Encounter Details Date Type Department Care Team (Late st Contact Info) Description 01/09/2024 12:47 PM CDT - 01/09/2024 7:35 PM CDT Emergency [facility] Emergency Department [address] [place] [address] Sweta Rivera M.D. 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 * Diarrhea Adult [id number] (Icelandic) documented in this encounter Medications at Time of Discharge Medication Sig Dispensed Refills Start Date End Date cholecalciferol, vitamin D3, 25 mcg (1,000 Unit) tablet Take 1,000 Units by mouth. 12/15/2021 DME Urological suppliesIndications:Re tention Urinary DME Order 1 Unspecified 01/08/2024 multivitamin capsule Take 1 capsule by mouth daily. tamsulosin (FLOMAX) 0.4 mg 24 hr capsule Take 1 capsule (0.4 mg total) by mouth daily. 90 capsule 3 12/13/2023 zinc gluconate 50 mg tablet Take 50 mg by mouth daily with breakfast. vancomycin (VANCOCIN) 125 mg capsuleIndications:Ent erocolitis Due To Clostridium Difficile Not Specified As Recurrent Take 1 capsule (125 mg total) by mouth 4 (four) times a day for 10 days. 40 capsule 01/11/2024 01/21/2024 documented as of this encounter ED Notes * Sweta Rivera M.D. - 01/09/2024 5:34 PM CDT SUBJECTIVE CHIEF COMPLAINT/REASON FOR VISIT Diarrhea HISTORY OF PRESENT ILLNESS History provided by: Patient, medical records and significant other radio time buyer needed/used: concetta Sreedhar Hunt is a 88-year-old male with a history of CKD, nonspecific monoclonal gammopathy, anemia of chronic renal failure, hyperparathyroidism who presents to the Emergency Department for the evaluation of diarrhea. One to two weeks ago, the patient developed progressively worsening soft brown stools without blood. Over the past three days, he has had mucous in his non-bloody diarrhea. His diarrhea was initially brown and loose and as of three days ago, he developed dark and watery stools. He states that he has been taking a bismuth-containing anti-diarrheal medication. Yesterday, he had an episode of watery stool incontinence while in the bathroom at his Urology appointment. Out of concern for his diarrheal stools, he presents to the ED for evaluation. He has had mild intermittent abdominal pain associated with his episodes of diarrhea. He denies vomiting, fever, chills, and chest pain. He has been unable to drink today. He denies antibiotics. He denies foreign travel. REVIEW OF SYSTEMS Constitutional: Negative for fever. Respiratory: Negative for shortness of breath. Cardiovascular: Negative for chest pain. Gastrointestinal: Positive for abdominal pain and diarrhea. Negative for nausea and vomiting. Musculoskeletal: Negative for back pain. Skin: Negative for rash. OBJECTIVE Initial Vitals [01/09/24 1253] Temperature 36.5 ??C Pulse Rate 87 Heart Rate Resp Rate 20 Blood Pressure 130/73 SpO2 96 % Pain Score 1 PHYSICAL EXAMINATION HENT: Head: Normocephalic and atraumatic. Mouth/Throat: Mucous membranes are moist. Eyes: Conjunctivae are normal. Cardiovascular: Normal rate and regular rhythm. Pulmonary/Chest: Effort normal and breath sounds normal. Abdominal: Soft. There is no abdominal tenderness. Musculoskeletal: General: No edema. Neurological: Alert and oriented to person, place, and time. Skin: Skin is warm. No rash noted. Psychiatric: He has a normal mood and affect. ASSESSMENT/PLAN Assessment and Plan I reviewed the following external records: office records. 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 Appears well-hydrated. Normal vital signs. Renal function at baseline. I suspect this could be caused by infection. No reported blood in the stools, hemoglobin is at baseline. Offered stool studies and followup. Patient has a soft, nontender abdomen. We plan for discharge. Final Diagnoses: as of 01/09/24 193 Diarrhea I personally performed the services described in this documentation, as scribed in my presence, andit is both accurate and complete. Sweta Rivera M.D. 01/12/24 0008 * Crystal Castellon R.N. - 01/09/2024 12:53 PM CDT 88yo arrives for diarrhea x1 week. He has been having incontinence now which is new. Crystal Castellon R.N. 01/09/24 1255 documented in this encounter Plan of Treatment Upcoming Encounters Date Type Department Care Team (Latest Contact Info) Description 02/21/2024 9:00 AM CDT Clinical Communication Virtual Review in [place], [place] 200 [place] [address] 02/22/2024 3:45 PM CDT Office Visit Department of Urology in [place], [place] [address] [place] [phone] Shirley Villanueva APRN, C.N.P., M.S.N. [address] [place] [phone] Scheduled Orders Name Type Priority Associated Diagnoses Orde r Schedule Influenza A/B, SARS CoV-2, PCR, Rapid Symptomatic Microbiology STAT STAT for 1 Occurrences starting 01/09/2024 until 01/09/2024 documented as of this encounter Procedures Procedure Name Priority Date/Time Associated Diagnosis Comments GI PATHOGEN PANEL, PCR, F Routine 01/09/2024 6:00 PM CDT HEPATIC FUNCTION PANEL, S STAT 01/09/2024 1:47 PM CDT CBC WITH DIFFERENTIAL, B STAT 01/09/2024 1:47 PM CDT MAGNESIUM, S STAT 01/09/2024 1:47 PM CDT BASIC METABOLIC PANEL, S/P STAT 01/09/2024 1:47 PM CDT documented in this encounter Results * (ABNORMAL) GI Pathogen Panel, PCR, [...] CDT DTL Yersinia species Negative Negative 01/10/20 24 5:29 PM CDT DTL Enteroaggregative E. coli [...] performed using the FDA-cleared FilmArray GI Panel ([employer] Semi-Urgent This is a semi-urgen t result(RIDLEY) [facility] Stool 01/09/2024 6:00 PM CDT 01/10/2024 3:56 PM CDT Sweta Rivera M.D. LAB MICROBIOLOGY - GENERAL ORDERABLES [facility] [address] [place] [address], [facility] [address] [address] * Hepatic Function Panel (01/09/2024 1:47 PM [...] Carmen Montilla P.A.-C., M.S. LAB BLOOD ADD-ON [facility] [address] [place] [address], [facility] [address] [place] [address] * Magnesium (01/09/2024 1:47 PM CDT) Magnesium, S 2.2 1.7 - 2.3 mg/dL 01/09/2024 2:49 PM CDT DTL Blood (Blood, Venous) 01/09/2024 1:47 PM CDT 01/09/2024 2:25 PM CDT Carmen Montilla P.A.-C., M.S. LAB BLOOD ADD-ON [facility] [address] [place] [address], [facility] DTL [facility] [address] [place] [address] * (ABNORMAL) Basic Metabolic Panel (01/09/2024 1:47 PM CDT) Potassium, P 4.4 3.6 - 5.2 [...] Carmen Montilla P.A.-C., M.S. LAB BLOOD ADD-ON [facility] [address] [place] [address], [facility] STMA [facility] [address] [place] [address] * (ABNORMAL) CBC with Differential, Blood (01/09/2024 1:47 PM CDT) [facility] Hemoglobin 12.5(L) 13.2 - 16.6 g/dL 01/09/2024 [...] Carmen Montilla P.A.-C., M.S. 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
--- OUTSIDE RECORDS SUMMARY | 2024-01-31 12:41 | XMS_ITS | Encounter Summary ---
Author Organization [facility] Address [address] [place] [address] Care Team Providers Care Admin Dir Name Role Phone Elsewhere, Pcp Primary Care Provider Unavailabl e Reason for Visit * Reason Comments Urinary Retention * Outpatient (Routine) - Closed Specialty Diagnoses / Procedures Referred By Mira ricci Referred To Contact Diagnoses Retention Urinary Procedures Enema Prep Silvano Key M.D. 200 [place] [address] [facility] Referral ID Status Reason Start Date Expiration Date Visits Re quested Visits Authorized [id number] Closed 12/11/2023 12/10/2024 1 1 Encounter Details Date Type Department Care Team (Latest Contact Info) Description 12/13/2023 8:00 AM CDT Clinical Support Enema Prep Facility in [employer], [place] [address] [place] [address] Silvano Key M.D. [address] [place] [phone] Juan Curiel RZeeshanNZeeshan Retention Urinary Social History Tobacco Use Types Packs/Day Years Used Date Smoking Tobacco: Never Smokeless Tobacco: Never Alcohol Use Standard Drinks/Week Comments Not Currently 0 (1 standard drink = 0.6 oz pur e alcohol) [facility] Utilities Answer Date Recorded In the past 12 months has [employer], [employer], or [employer] threatened to shut off services in your [...] your living situation today? I have a [facility] place to live 12/13/2023 Sex and Gender Information Value Date Recorded Sex Assigned at Male 12/13/2023 1:46 PM CDT Gender Identity Male 12/13/2023 1:46 PM CDT Sexual Orientation Straight 12/13/2023 1: 46 PM CDT documented as of this encounter Plan of Treatment Upcoming Encounters Date Type Department Care Team (Latest Contact Info) Description 02/21/2024 9:00 AM CDT Clinical Communication Virtual Review in [employer], [place] [address] [place] [address] 02/22/2024 3:45 PM CDT Office Visit Department of Urology in [employer], [place] [address] [place] [address] Shirley Villanueva APRN, C.N.P., M.S.N. [address] [place] [address] documented as of this encounter Visit Diagnoses Diagnosis Retention Urinary documented in this encounter Care Teams Admin Dir Relationship Specialty Start Date End Date Elsewhere, Pcp PCP - General Internal Medicine 12/02/23 documented as of this encounter
--- OUTSIDE RECORDS SUMMARY | 2024-01-31 12:41 | XMS_ITS | Encounter Summary ---
Author Organization [facility] Address [address] [place] [address] Care Team Providers Care Concrete Worker Name Role Phone Elsewhere, Pcp Primary Care Provider Unavailabl e Reason for Visit * Reason Comments Urinary Problem Encounter Details Date Type Department Care Team ([facility] st Contact Info) Description 12/02/2023 11:00 AM CDT - 12/02/2023 2:05 PM CDT Emergency [facility] Emergency Department [address] [place] [phone] Ramy Ramirez, P.A.-C. [address] [place] [phone] Neurogenic Bladder (Primary Dx); Urinary Tract Infection [...] Sign Reading Time Taken Comments Blood Pressure 128/80 12/02/2023 2:04 PM CDT Pulse 104 12/02/2023 11:11 AM CDT Temperature 36.7 ??C (98.1 ??F) 12/02/2023 1 1:11 AM CDT Respiratory Rate 14 12/02/2023 2:04 PM CDT Oxygen Saturation 100% 12/02/2023 2:04 PM CDT Inhaled Oxygen Concentration - - Weight 87.4 kg (192 lb 10.9 oz) 024 11:03 AM CDT Height - - Body Mass Index 27.65 09/26/2023 8:04 AM SHIPWRIGHT SUPERVISOR documented in this encounter Medications at Time [...] Take 81 mg by mouth daily. 12/06/2023 cefdinir (OMNICEF) 300 mg capsule Take 1 capsule (300 mg total) by mouth 2 (two) times a day before breakfast and dinner for 5 days. 10 capsule 12/02/2023 12/03/2023 fosfomycin (MONUROL) 3 gram packetIndications:Neur ogenic Bladder,Urinary Tract Infection Site Not Specified Take 3 g by mouth as directed. Take one dose (3 grams) every 3 days for a total of 3 doses. 3 packet 12/03/2023 12/04/2023 documented as of this encounter ED Notes * Lizzy Clayton R.N. - 12/02/2023 12:38 PM CDT Pt presents with inability to self cath today. He did get 300 mL one time. He states he has been using a size 14 Greenlandic Red Rubber cath to self cath 4x/day x 5 years. He denies pain or hematuria. Lizzy Clayton R.N. 12/02/23 1239 Lizzy Clayton R.N. 12/02/23 1244 * Lizzy Clayton R.N. - 12/02/2023 11:34 AM CDT Pt presents with difficulty self cathing. Pt brought one of his red rubber cath. Pt denies pain at this time. Lizzy Clayton R.N. 12/02/23 1135 * Ramy Ramirez P.A.-C. - 12/02/2023 11:16 AM CDT SUBJECTIVE CHIEF COMPLAINT/REASON FOR VISIT Urinary Problem HISTORY OF PRESENT ILLNESS Sreedhar Hunt is an 88-year-old male with a history of chronic kidney disease stage 3b, cystitis, and neurogenic bladder who presents to the Emergency Department for evaluation of a urinary problem. The patient reports that he self-caths four times per day and normally does not have any problems with placing the catheter. This morning, however, the patient reports that he has attempts to self-cath twice but has been unable to insert the catheter all the way. With his attempts, he has been able to drain 300 cc but still feels that his bladder is full. He endorses feeling some pressure in hisabdomen but denies any associated abdominal pain pain, distention, or back pain. Concerned by his inability to properly place a catheter, he presented to a local ED who were also unable to place a catheter. He was subsequently referred to [facility] ED for further evaluation and treatment. History provided by: Patient and medical records human resources analyst needed/used: no REVIEW OF SYSTEMS Genitourinary: Positive for urinary retention, difficulty self-cathing. Hematological: Does not bruise/bleed easily. OBJECTIVE Initial Vitals [12/02/23 1111] Temperature 36.7 ??C Pulse Rate 104 Heart Rate Resp Rate 16 Blood Pressure 130/85 SpO2 95 % Pain Score PHYSICAL EXAMINATION Constitutional: Nursing note and vitals reviewed. He is cooperative. Non-toxic appearance. HENT: Head: Atraumatic. Mouth/Throat: Mucous membranes are moist. Eyes: Periorbital area normal appearing. Cardiovascular: Normal peripheral perfusion. Pulmonary/Chest: Effort normal. No accessory muscle usage. No tachypnea. No respiratory distress. Abdominal: Soft. Non-distended. There is no abdominal tenderness. Musculoskeletal: Cervical back: Normal range of motion. Neurological: Alert. Normal speech. Skin: He is not diaphoretic. No jaundice. Psychiatric: He has a normal mood and affect. Speech pattern is normal. ASSESSMENT/PLAN Assessment and Plan This is an 88-year-old male with a history of chronic kidney disease stage 3b and neurogenic bladder for which he self-caths 4 x day who presents as a referral from an outside ED with concerns for aninability to place a catheter. On arrival, the patient was hemodynamically stable, saturating well on room air, and well-appearing. His exam is benign. The patient is not exhibiting any signs or symptoms to suggest an infectious process. However, he has prior kidney disease and we will obtain basicscreening labs. Urology was consulted and a tech came down to place a catheter. The tech states that he was met with some resistance and had to exchange the catheter for a smaller size (16 Fr) which was placed without difficulty. Since the catheter was able to be placed, there is no indication for any imaging at this time. I anticipate he will be discharged home for an outpatient follow up. We will provide him with 16 Fr catheter supplies and instruct him to follow up with his primary care provider to obtain an order for the new catheter supplies. Ultimate disposition is pending the results of the workup and the patient's ED course. Any further management will depend on the findings and theclinical course. . I reviewed the following external records: primary care records and office records. ED Course as of 12/02/23 1544 Sat Dec 02, 2023 1201 Basic Metabolic Panel(!): Potassium, P 4.5 Sodium, P 139 Chloride, P 105 Bicarbonate, P 22 Anion Gap, P 12 BUN (Blood Urea Nitrogen), P 34(!) Creatinine 1.55(!) Estimated GFR (eGFR) 43(!) Calcium, Total, P 9.6 Glucose, P 104 Chronic kidney disease at baseline. No electrolyte abnormalities requiring emergent repletion. 1330 Urine remarkable for positive nitrites, moderate leuko esterase and more than 100,000 white blood cells, we will treat with cefdinir. 1357 We attempted to obtain 16 kenyan catheters to send home with patient, who ever we able to obtain 2 of them, I offered to place an indwelling catheter given that patient needs a straight cath. Would prefer not to have an indwelling catheter homeless he will try the 14 Greenlandic catheter as he has a home Final Diagnoses: as of 12/02/23 1544 Neurogenic Bladder Urinary Tract Infection Site Not Specified I personally performed the services described in this documentation, as scribed in my presence, andit is both accurate and complete. Ramy Ramirez P.A.-C. 12/02/23 1544 * Emilie Mcgregor R.N. - 12/02/2023 11:12 AM CDT Pt c/o inability to pass urinary catheter last night or today. He has neurogenic bladder and caths 4 x /day. Pt was able to pass approx 300 ml urine normally this morning. He was seen at OSH where they also were unable to pass catheter so was sent here for urology evaluation. Emilie Mcgregor R.N. 12/02/23 1115 documented in this encounter Plan of Treatment Upcoming Encounters Date Type Department Care Team (Latest Contact Info) Description 02/21/2024 9:00 AM CDT Clinical Communication Virtual Review in [address] [phone] 02/22/2024 3:45 PM CDT Office Visit Department of Urology in [address] [phone] Shirley Villanueva APRN, C.N.P., M.S.N. [address] [place] [phone] documented as of this encounter Procedures Procedure Name Priority Date/Time Associated Diagnosis Comments HC URINALYSIS AUTO WO MICRO Routine 12/02/2023 12:29 PM CDT DIPSTICK, U STAT 12/02/2023 11:38 AM CDT MICROSCOPIC MANUAL STAT 12/02/2023 11 :38 AM CDT BACTERIAL CULTURE, AEROBIC + SUSC, URINE STAT 12/02/2023 11:38 AM CDT PH, U STAT 12/02/2023 11:38 AM CDT OSMOLALITY, U STAT 12/02/2023 11:38 AM CDT URINALYSIS WITH MICROSCOPIC STAT 12/02/2023 11:38 AM CDT CBC WITH DIFFERENTIAL, B STAT 12/02/2023 11:30 AM CDT BASIC METABOLIC PANEL, S/P STAT 12/02/2023 11:30 AM CDT documented in this encounter Results * (ABNORMAL) Dipstick, POCT, Urine (12/02/2023 12:29 PM CDT) [facility] Glucose, POCT, U Negative Negative mg/dL 12/02/2023 12:30 PM CDT PCED Ketone, POCT, U Negative Negative mg/dL 12/02/2023 12:30 PM CDT PCED Specific [place], POCT, U 1.020 1.005 - 1.030 12/02/2023 [...] POCT ORDERABLES - DEVICE Performing Organization Address City/[facility]/ZIP Co de Phone Number POC RST [facility] [address] [place] [address], [facility] PCED [facility] POC 200 [place] [address] * (ABNORMAL) Microscopic Manual (12/02/2023 11:38 AM CDT) Microscopy Abnormal 12/02/2023 1:33 PM CDT DTL RBC 3-10(A) <3 /hpf 12/02/2023 1:33 PM CDT DTL Dysmorphic RBC <25 <25 % 12/02/2023 1:33 PM CDT DTL WBC >100(A) /hpf 12/02/2023 1:33 PM CDT DTL Comment: ----REFERENCE VALUE---- <4 ??(Males) <11 (Females) Casts, Hyaline Occas /lpf 12/02/2023 1:33 PM CDT DTL Urine 12/02/2023 11:3 8 AM CDT 12/02/2023 12:50 PM CDT Ramy Ramirez P.A.-C. LAB URINE ORDERAB LES [facility] 200 [place] [address], [facility] DTL [facility] 200 [place] [address] * (ABNORMAL) Dipstick, Urine (12/02/2023 11:38 AM CDT) Hemoglobin, QL, U Small(A) Negative 12/02/2023 12:50 PM CDT DTL Leukocyte Esterase, U Large(A) Negative 12/02/2023 12:50 PM CDT DTL Nitrite, U Positive(A) Negative 12/02/2023 12:50 PM CDT DTL Ketone, U Negative Negative mg/dL 12/02/2023 12:50 PM CDT DTL Glucose, U Negative Negative mg/dL 12/02/2023 12:50 PM CDT DTL Urine 12/02/2023 11:3 8 AM CDT 12/02/2023 12:18 PM CDT Ramy Ramirez P.A.-C. LAB URINE ORDERAB LES [facility] 200 [place] [address], [facility] 200 [place] [address] * pH, Urine (12/02/2023 11:38 AM CDT) pH, U 5.4 4.5 - 8.0 12/02/2023 12: 55 PM CDT DTL Urine 12/02/2023 11:3 8 AM CDT 12/02/2023 12:18 PM CDT Ramy Ramirez P.A.-C. LAB URINE ORDERAB LES Performing Organization Address City/[facility]/ZIP Co de Phone Number [facility] [address] [place] [address], [facility] 200 [place] [address] * Osmolality, Urine (12/02/2023 11:38 AM CDT) Osmolality, U 570 150 - 1150 mOsm/kg 12/02/2023 12:55 PM CDT DT Urine 12/02/2023 11:3 8 AM CDT 12/02/2023 12:18 PM CDT Ramy Ramirez P.A.-C. LAB URINE ORDERAB LES Performing Organization Address City/[facility]/ZIP Co de Phone Number [facility] [address] [place], [place] [address] 200 [place] [address] * (ABNORMAL) Bacterial Culture, Aerobic + Susceptibility, Urine (12/02/2023 11:38 AM CDT) Urine Culture PSEUDOMONAS AERUGINOSA 10,000-100,000 cfu/mL (A) 12/06/2023 9:04 AM CDT DTL Comment: Gentamicin should not be used for P. aeruginosa. There are no gentamicin breakpoints for P. aeruginosa. Unable to perform susceptibility testing. ??Organism did not grow on test medium. Urine (Urine, Straight Catheter) 12/02/2023 11:38 AM CDT 12/02/2023 1:50 PM CDT Comment:Specimen Source Site : Urine Ramy Ramirez P.A.-C. LAB MICROBIOLOGY - GENERAL ORDERABLES Performing Organization Address [facility] Co de Phone Number [facility] 200 [place] [address], [facility] DTL [facility] 200 [place] [address] * (ABNORMAL) Urinalysis, with Microscopic: Urine, Straight Catheter (12/02/2023 11:38 AM CDT) Source Urine, Urine, Straight Catheter 12/02/2023 12:18 PM CDT DTL Color, U Yellow 12/02/2023 12:18 PM CDT DTL Clarity, U Clear 12/02/2023 12:18 PM CDT DTL Protein, U 32(H) <26 mg/dL 12/02/2023 1:09 PM CDT DTL Protein/Osmola lity 0.56(H) <0.42 ratio 12/02/2023 1:09 PM CDT DTL Predicted 24 HR Protein, U 543(H) <229 mg/24 h 12/02/2023 1:09 PM CDT DTL Predicted Range 172-1711 mg/24 h 12/02/2023 1:09 PM CDT DTL Urine (Urine, Straight Catheter) 12/02/2023 11:38 AM CDT 12/02/2023 12:18 PM CDT Ramy Ramirez P.A.-C. LAB URINE ORDERAB LES Performing Organization Address [facility]/ZIP Co de Phone Number [facility] [address] [place] [address], [facility] DTL [facility] 200 [place] [address] * (ABNORMAL) Basic Metabolic Panel (12/02/2023 11:30 AM CDT) Potassium, P 4.5 3.6 - 5.2 mmol/L 12/02/2023 11:52 AM CDT STMA Sodium, P 139 135 - 145 mmol/L 12/02/2023 11:52 AM CDT STMA Chloride, P 105 98 - 107 mmol/L 12/02/2023 11:52 AM CDT STMA Bicarbonate, P 22 22 - 29 mmol/L 12/02/2023 11:52 AM CDT STMA Anion Gap, P 12 7 - 15 12/02/2023 11:52 AM CDT STMA BUN (Blood Urea Nitrogen), P 34(H) 8 - 24 mg/dL 12/02/2023 11:52 AM CDT STMA Creatinine 1.55(H) 0.74 - 1.35 mg/dL 12/02/2023 11:52 AM CDT STMA Estimated GFR (eGFR) 43(L) >=60 mL/min/BSA 12/02/2023 11:52 AM CDT STMA Comment: Estimated GFR calculated using the 2020 CKD_EPI creatinine equation. Calcium, Total, P 9.6 8.8 - 10.2 mg/dL 12/02/2023 11:52 AM CDT STMA Glucose, P 104 70 - 140 mg/dL 12/02/2023 11:52 AM CDT STMA Blood (Blood, Venous) 12/02/2023 11:30 AM CDT 12/02/2023 11:34 AM CDT Ramy Ramirez P.A.-C. LAB BLOOD ADD-ON [facility] 200 [place] [address], [facility] STMA [facility] [address] [place] [address] * (ABNORMAL) CBC with Differential, Blood (12/02/2023 11:30 AM CDT) Hemoglobin 13.9 13.2 - 16.6 g/dL 12/02/2023 11:37 AM CDT STMA Hematocrit 42.2 38.3 - 48.6 % 12/02/2023 11:37 AM CDT STMA Erythrocytes 4.46 4.35 - 5.65 x10(12)/L 12/02/2023 11:37 AM CDT STMA MCV 94.6 78.2 - 97.9 fL 12/02/2023 11:37 AM CDT STMA RBC Distrib Width 12.4 11.8 - 14.5 % 12/02/2023 11:37 AM CDT STMA Platelet Count 214 135 - 317 x10(9)/L 12/02/2023 11:37 AM CDT STMA Leukocytes 9.6 3.4 - 9.6 x10(9)/L 12/02/2023 11:37 AM CDT STMA Neutrophils 7.97(H) 1.56 - 6.45 x10(9)/L 12/02/2023 11:37 AM CDT DHPM Lymphocytes 0.95 0.95 - 3.07 x10(9)/L 12/02/2023 11:37 AM CDT STMA Monocytes 0.62 0.26 - 0.81 x10(9)/L 12/02/2023 11:37 AM CDT STMA Eosinophils <0.03 0.03 - 0.48 x10(9)/L 12/02/2023 11:37 AM CDT STMA Basophils 0.03 0.01 - 0.08 x10(9)/L 12/02/2023 11:37 AM CDT STMA Blood (Blood, Venous) 12/02/2023 11:30 AM CDT 12/02/2023 11:34 AM CDT Ramy Ramirez P.A.-C. LAB BLOOD ADD-ON [facility] [address] [place] [address], [facility] STMA [facility] [address] [place], [place] [phone] [place] [address] [address] [place] [address] documented in this encounter Visit Diagnoses Diagnosis Neurogenic Bladder- Primary Urinary Tract Infection Site Not Specified documented in this encounter Care Teams Concrete Worker Relationship Specialty Start Date End Date Elsewhere, Pcp PCP - General Internal Medicine 12/02/23 documented as of this encounter
--- OUTSIDE RECORDS SUMMARY | 2024-01-31 12:41 | XMS_ITS | Encounter Summary ---
Author Organization [facility] Address [address] [place] [address] Care Team Providers Care Health Insurance Sales Agent Name Role Phone Elsewhere, Pcp Primary Care Provider Unavailabl e Encounter Details Date Type Department Care Team (Latest Contact Info) Description 12/02/2023 Intake [facility] Social History Tobacco Use Types Packs/Day Years [...] AM CDT Clinical Communication Virtual Review in [place], [place] [address] [place] [phone] 02/22/2024 3:45 PM CDT Office Visit Department of Urology in [place], [place] [address] [place] [phone] Shirley Villanueva APRN, C.N.P., M.S.N. [address] [place] [phone] documented as of this encounter Visit Diagnoses Not on filedocumented in this encounter Additional Health Concerns Infection Onset Date Last Indicated Resolved Time COVID19 Pending 01/09/2024 01/09/2024 01/29/2024 5 :45 AM CDT C. difficile 01/09/2024 01/09/2024 documented as of this encounter Care Teams Health Insurance Sales Agent Relationship Specialty Start Date End Date Elsewhere, Pcp PCP - General Internal Medicine 12/02/23 documented as of this encounter
== END 2024-01-30 07:52 | disposition home or self-care (01) ==
LOC: NFLDREF 01-31 12:38
PROVIDERS: PCP Family Medicine; Referring Provider Family Medicine; Visit Provider Internal Medicine Nephrology
DX: N18.30 Chronic kidney disease, stage 3 unspecified (principal); D63.1 Anemia in chronic kidney disease; R33.9 Retention of urine, unspecified; N39.0 Urinary tract infection, site not specified; N31.2 Flaccid neuropathic bladder, not elsewhere classified; N32.3 Diverticulum of bladder; I48.0 Paroxysmal atrial fibrillation; R19.09 Other intra-abdominal and pelvic swelling, mass and lump; N40.0 Benign prostatic hyperplasia without lower urinary tract symptoms
CPT/HCPCS: 80069; 82043; 82306; 82570; 83520; 83540; 83550; 83970; 84450; 84460; 84550; 86334; 87086; 87186

== ENCOUNTER 2024-04-10 11:10 | Outpatient (CLI) | payer MEDICARE, BC, SELFPAY ==
--- OUTSIDE RECORDS SUMMARY | 2024-04-10 11:13 | XMS_ITS | Referral Summary ---
Author Organization [facility] Address [address] [place] [address] Care Team Providers Care Tone Cabinet Assembler Name Role Phone Elsewhere, Pcp Primary Care Provider Unavailabl e Source Comments Patient records contain information from all sites at [facility]. For routine questions regarding patient records, call [phone] during business hours, M-F 8:00 AM - 5:00 PM Central Time. Record requests for emergency care only can be directed to [phone] at any time.[facility] Encounters Date Type Department Care Team Description 02/07/2024 11:00 AM CDT External Outreach Division of Nephrology and Hypertension in [place], [place] [address] [place] [address] Jaime Bull Jr., D.O. Chronic Kidney Disease (CKD), Stage 3b Glomerular Filtration Rate (GFR) 30 To 44 (HCC) (Primary Dx); Hyperparathyroidis m Renal Secondary (HCC); Anemia Of Chronic Renal Failure; Gammopathy Monoclonal Nonspecific 01/15/2024 Clinical Communication Department of Urology in [place], [place] [address] [place] [address] Shirley Villanueva APRN, C.N.P., M.S.N. After Visit Question (Post cysto) 01/10/2024 3:45 PM CDT Office Visit Department of Urology in [place], [place] [address] [place] [phone] Shirley Villanueva APRN, C.N.P., M.S.N. Retention Urinary (Primary Dx) 01/09/2024 12:47 PM CDT - 01/09/2024 7:35 PM CDT Emergency [facility] Emergency Department [address] [place] [phone] Sweta Rivera M.D. Diarrhea (Primary Dx); Enterocolitis Due To Clostridium Difficile Not Specified As Recurrent Discharge Disposition: Home or Self Care from Last 3 Months Allergies Active Allergy [...] 90 capsule 3 12/13/2023 Active DME Urological suppliesIndications :Retention Urinary DME Order 1 Unspecified 01/08/2024 Active Active Problems Problem Noted Date Diagnosed Date Chronic Kidney Disease (CKD) , Stage 3b Glomerular Filtration Rate (GFR) 30 To 44 08/08/2023 Gammopathy Monoclonal Nonspecific 08/08/2023 Anemia Of Chronic Renal Failure 08/08/2023 Hyperparathyroidism Renal Secondary 08/08/2023 Cystitis Unspecified Without Hematuria Social History Tobacco Use Types Packs/Day Years Used Date Smoking Tobacco: Never Smokeless Tobacco: Never Tobacco Cessation:Counseling Given: Not Answered Alcohol Use Standard Drinks/Week Comments Not Currently 0 (1 standard drink = 0.6 oz pur e alcohol) [facility] Utilities Answer Date Recorded In the past 12 months has [employer], gas, oil, or water Getting-in threatened to shut off services in your [...] your living situation today? I have a [facility] place to live 12/13/2023 Sex and Gender Information Value Date Recorded Sex Assigned at Male 12/13/2023 1:46 PM CDT Gender Identity Male 12/13/2023 1:46 PM CDT Sexual Orientation Straight 12/13/2023 1: 46 PM CDT Last Filed Vital Signs Vital Sign Reading Time Taken Comments Blood Pressure 132/78 02/07/2024 11:16 AM CDT Pulse 82 02/07/2024 11:16 AM CDT Temperature 36.5 ??C (97.7 ??F) 01/09/2024 12:53 PM C DT Respiratory Rate 18 01/09/2024 7:00 PM CDT Oxygen Saturation 96% 01/09/2024 7:15 PM CDT Inhaled Oxygen Concentration - - Weight 85.3 kg (188 lb 0.8 oz) 02/07/2024 11:16 AM CDT Height 180.3 cm (5' 10.98) 02/07/2024 11:16 AM CDT Body Mass Index 26.24 02/07/2024 11:16 AM CDT Plan of Treatment Upcoming Encounters Date Type Department Care Team (Latest Contact Info) Description 06/05/2024 10:00 AM CDT Clinical Communication Virtual Review in [place], [place] [address] [place] [phone] 06/06/2024 11:00 AM CDT Office Visit Department of Urology in [place], [place] [address] [place] [phone] Shirley Villanueva APRN, C.N.P., M.S.N. [address] [place] [phone] Medical Devices Implanted Type Area Peach Grower Device Identifier Shelf Expiration Date Model [...] DIFFERENTIAL, B STAT 01/09/2024 1:47 PM CDT from Last 3 Months Results * [...] performed using the FDA-cleared FilmArray GI Panel ([employer] Semi-Urgent This is a semi-urgen t result([place]) [facility] Stool 01/09/2024 6:00 PM CDT 01/10/2024 3:56 PM CDT Sweta Rivera M.D. LAB MICROBIOLOGY - GENERAL ORDERABLES [facility] 200 [place] [address], [facility] DTL [address] [address] * Hepatic Function Panel (01/09/2024 1:47 PM [...] Carmen Montilla P.A.-C., M.S. LAB BLOOD ADD-ON [facility] 200 [place] [address], [facility] 200 [place] [address] * (ABNORMAL) CBC with Differential, Blood (01/09/2024 1:47 PM CDT) Pathologist [facility] Hemoglobin 12.5(L) 13.2 - 16.6 g/dL 01/09/2024 [...] - 6.45 x10(9)/L 01/09/2024 2:03 PM CDT [facility] Lymphocytes 0.75(L) 0.95 - 3.07 x10(9)/L 01/09/2024 2:03 PM CDT STMA Monocytes 0.83(H) 0.26 - 0.81 x10(9)/L 01/09/2024 2:03 PM CDT STMA Eosinophils 0.05 0.03 - 0.48 x10(9)/L 01/09/2024 2:03 PM CDT STMA Basophils <0.03 0.01 - 0.08 x10(9)/L 01/09/2024 2:03 PM CDT STMA Blood (Blood, Venous) 01/09/2024 1:47 PM CDT 01/09/2024 2:00 PM CDT Carmen Montilla P.A.-C., M.S. LAB BLOOD ADD-ON [facility] [address] [place] [address], [facility] STMA [facility] [address] [place] [address] [facility] [address] [place] [address] * Magnesium (01/09/2024 1:47 PM CDT) [facility] Magnesium, S 2.2 1.7 - 2.3 mg/dL 01/09/2024 2:49 PM CDT DTL Blood (Blood, Venous) 01/09/2024 1:47 PM CDT 01/09/2024 2:25 PM CDT Carmen Montilla P.A.-C. M.S. LAB BLOOD ADD-ON [facility] [address] [place] [address], [facility] [address] [place] [address] * (ABNORMAL) Basic Metabolic Panel (01/09/2024 1:47 [...] Carmen Montilla P.A.-C., M.S. LAB BLOOD ADD-ON [facility] [address] [place] [address], [place] STMA [facility] [address] [place] [address] from Last 3 Months Care Teams Tone Cabinet Assembler Relationship Specialty Start Date End Date Elsewhere, Pcp PCP - General Internal Medicine 12/02/23
--- OUTSIDE RECORDS SUMMARY | 2024-04-10 11:13 | XMS_ITS | Clinical Summary ---
Author Organization [facility] Address [place], [place] [address] Care Team Providers Care Scallop Dredger Name Role Phone Cruz Lemon MD Unavailable [phone] Fredy Brizuela Unavailable Anselmo Escamilla MD [...] Department Care Team Description 01/30/2024 Orders Only [facility] [address] [place] [address] Votel, Krishna Sandoval MD Outside Order (Ordered [...] Comments Blood Pressure 136/81 09/29/2022 9:47 AM AQUACULTURE FARM MANAGER Pulse 78 09/29/2022 9:47 AM AQUACULTURE FARM MANAGER Temperature 36.7 ??C (98.1 ??F) 05/19/2021 1 2:41 PM CDT Respiratory Rate 16 10/29/2018 4:00 PM AQUACULTURE FARM MANAGER Oxygen Saturation 97% 09/29/2022 9:47 AM AQUACULTURE FARM MANAGER Inhaled Oxygen Concentration - - Weight 90.6 kg (199 lb 11.2 oz) 09/29/2022 9:47 AM AQUACULTURE FARM MANAGER Height 180 cm (5' 10.87) 02/27/2019 2:21 [...] 07/18/2019, Additional history exists Tdap Completed 02/06/2013 Insurance Payer Benefit Plan / Group Subscriber ID Effective Dates Phone Address Type MEDICARE PART B - HB USE ONLY MEDICARE PART B HB ONLY [id number] 2002-Presen t ATTN: CLAIMS [address] [facility] [place] [address] MEDICARE PART A - HB USE ONLY MEDICARE PART A HB ONLY [id number] 2002-Presen t ATTN: CLAIMS [address] [facility] [place] [place] [address] MEDICARE - PB USE ONLY MEDICARE PB ONLY [id number] 2002-Presen t ATTN: CLAIMS [address] [facility] [place] [place] [address] [facility] [id number] 2016-Presen t [address] [place] [address] Advance Directives Documents on File Type Date Recorded Patient Industrial Coffee Grinder Expl anation Healthcare Directive 10/25/2018 6:11 PM 02 MAY 2003 * Full Code (Latest Code Status on File) Date Activated Date Inactivated Comments 10/24/2018 2:26 PM 10/29/2018 7:06 PM Question Answer Comments Code Status Discussion: Discussed Care Teams Scallop Dredger Relationship Specialty Start Date End Date Anselmo Escamilla MD [address] [place] [address] PCP - General Family Practice 07/08/21 Cruz Lemon MD [address] [place] [address] Ophthalmology Surgery 02/06/13 Fredy Brizuela [address] [place] [address] Ophthalmology Surgery 02/06/13
--- OUTSIDE RECORDS SUMMARY | 2024-04-10 11:13 | XMS_ITS | Encounter Summary ---
Author Organization [facility] Address [address] [place] [address] Care Team Providers Care Warp Picker Name Role Phone Elsewhere, Pcp Primary Care Provider Unavailabl e Reason for Referral * Outpatient (Routine) - Authorized Specialty Diagnoses / Procedures Referred By Mira ricci Referred To Contact Urology Shirley Villanueva APRN, C.NDarlene, M.S.N. [address] [place] [phone] [facility] Referral ID Status Reason Start Date Expiration Date V isits Requested Visits Authorized [id number] Authorized 01/10/2024 07/11/2025 1 1 Reason for Visit * Outpatient (Routine) - Closed Specialty Diagnoses / Procedures Referred By Mira ricci Referred To Contact Urology Shirley Villanueva APRN, C.NDarlene, M.S.N. [address] [place] [phone] [facility] Referral ID Status Reason Start Date Expiration Date Visits Re quested Visits Authorized [id number] Closed 12/29/2023 06/29/2025 1 1 Encounter Details Date Type Department Care Team (Late st Contact Info) Description 01/10/2024 3:45 PM CDT Office Visit Department of Urology in [place], [place] [address] [place] [phone] Shirley Villanueva APRN, C.N.P., M.S.N. [address] [place] [address] Retention Urinary (Primary Dx) Social History Tobacco Use Types Packs/Day Years Used Date Smoking Tobacco: Never Smokeless Tobacco: Never Alcohol Use Standard Drinks/Week Comments Not Currently 0 (1 standard drink = 0.6 oz pur e alcohol) [facility] Utilities Answer Date Recorded In the [...] your living situation today? I have a [facility] place to live 12/13/2023 Sex and [...] a month supply of catheters from the [email or web address]. He has been asked to call 1 [...] AM CDT Clinical Communication Virtual Review in [address] [phone] 06/06/2024 11:00 AM CDT Office Visit Department of Urology in [address] [phone] Shirley Villanueva APRN, Susan.N.P., M.S.N. [address] [place] [phone] Scheduled Referrals Name Type Priority Associated Diagnoses Orde r Schedule Urology office visit (clinic) Outpatient Referral Routine Expected: 01/16/2024, Expires: 04/11/2025 documented as of this encounter Visit Diagnoses Diagnosis Retention Urinary- Primary documented in this encounter Additional Health Concerns Infection Onset Date Last Indicated Resolved Time COVID19 Pending 01/09/2024 01/09/2024 01/29/2024 5 :45 AM CDT documented as of this encounter Care Teams Warp Picker Relationship Specialty Start Date End Date Elsewhere, Pcp PCP - General Internal Medicine 12/02/23 documented as of this encounter
--- OUTSIDE RECORDS SUMMARY | 2024-04-10 11:13 | XMS_ITS | Encounter Summary ---
Author Organization [facility] Address [address] [place] [address] Care Team Providers Care Power Cutting Machine Operator Name Role Phone Elsewhere, Pcp Primary Care Provider Unavailabl e Reason for Visit * Reason Onset Date Comments After Visit Question 01/15/2024 Post cysto Encounter Details Date Type Department Care Team (Latest Contact Info) Description 01/15/2024 Clinical Communication Department of Urology in [place], [place] [address] [place] [address] Shirley Villanueva APRN, C.N.P., M.S.N. [address] [place] [phone] After Visit Question (Post cysto) Social History Tobacco Use Types Packs/Day Years Used Date Smoking Tobacco: Never Smokeless Tobacco: Never Alcohol Use Standard Drinks/Week Comments Not Currently 0 (1 standard drink = 0.6 oz pur e alcohol) [facility] Utilities Answer Date Recorded In the past 12 months has [employer] electric, gas, oil, or water company threatened [...] your living situation today? I have a [facility] place to live 12/13/2023 Sex and Gender Information Value Date Recorded Sex Assigned at Male 12/13/2023 1:46 PM CDT Gender Identity Male 12/13/2023 1:46 PM CDT Sexual Orientation Straight 12/13/2023 1: 46 PM CDT documented as of this encounter Plan of Treatment Upcoming Encounters Date Type Department Care Team (Latest Contact Info) Description 06/05/2024 10:00 AM CDT Clinical Communication Virtual Review in [place], [place] [address] [place] [address] 06/06/2024 11:00 AM CDT Office Visit Department of Urology in [place], [place] [address] [place] [phone] Shirley Villanueva APRN, C.N.P., M.S.N. [address] [place] [phone] documented as of this encounter Visit Diagnoses Not on filedocumented in this encounter Additional Health Concerns Infection Onset Date Last Indicated Resolved Time COVID19 Pending 01/09/2024 01/09/2024 01/29/2024 5 :45 AM CDT C. difficile 01/09/2024 01/09/2024 02/06/2024 5:48 AM CDT documented as of this encounter Care Teams Power Cutting Machine Operator Relationship Specialty Start Date End Date Elsewhere, Pcp PCP - General Internal Medicine 12/02/23 documented as of this encounter
--- OUTSIDE RECORDS SUMMARY | 2024-04-10 11:13 | XMS_ITS ---
Author Organization [facility] Address [address] [place] [address] Care Team Providers Care Aluminizer Name Role Phone Unavailable Unavailable Unavailable Surgery Details Not on file Complications Check Surgery Details section. Procedure Estimated Blood Loss Check Surgery Details section. Procedure Findings Check Surgery Details section. Procedure Specimens Taken Check Surgery Details section.
--- OUTSIDE RECORDS SUMMARY | 2024-04-10 11:13 | XMS_ITS | Encounter Summary ---
Author Organization [facility] Address [address] [place] [address] Care Team Providers Care Technical Editor Name Role Phone Elsewhere, Pcp Primary Care Provider Unavailabl e Reason for Visit * Appointment Request (Routine) - Closed Specialty Diagnoses / Procedures Referred By Mira t Referred To Contact Nephrology and Hypertension Referral ID Status Reason Start Date Expiration Date Visits Re quested Visits Authorized [id number] Closed 12/22/2023 12/21/2024 1 1 Encounter Details Date Type Department Care Team (Latest Contact Info) Description 02/07/2024 11:00 AM CDT External Outreach Division of Nephrology and Hypertension in [place], [place] [address] [place] [address] Jaime Bull Jr., D.O. [address] [place] [address] Chronic Kidney Disease (CKD), Stage 3b Glomerular Filtration Rate (GFR) 30 To 44 (HCC) (Primary Dx); Hyperparathyroidism Renal Secondary (HCC); Anemia Of Chronic Renal Failure; Gammopathy Monoclonal Nonspecific Social History Tobacco Use Types Packs/Day Years Used Date Smoking Tobacco: Never Smokeless Tobacco: Never Alcohol Use Standard Drinks/Week Comments Not Currently 0 (1 standard drink = 0.6 oz pur e alcohol) [facility] Utilities Answer Date Recorded In the [...] your living situation today? I have a [facility] place to live 12/13/2023 Sex and [...] Pulse 82 02/07/2024 11:16 AM CDT Temperature - - Respiratory Rate - - Oxygen Saturation - - Inhaled Oxygen Concentration - - Weight 85.3 kg (188 lb 0.8 oz) 02/07/2024 11:16 AM CDT Height 180.3 cm (5' 10.98) 02/07/2024 11:16 AM CDT Body Mass Index 26.24 02/07/2024 11:16 AM CDT documented in this encounter Progress Notes * Jaime Bull Jr., D.O. - 02/07/2024 11:00 AM CDT Referring Provider: ELSEWHERE, PCP SUBJECTIVE REASON FOR VISIT [place] out [facility] Follow-up regards CKD on the background of prior acute kidney injury, obstructive uropathy. 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 Hunt is a 88 y.o. male who presents with a background history of CKD with a baseline creatinineof 1.4 which has remained gratifyingly stable fortunately. He has had a very eventful December and early January. On the 30 of November he had issues with inability to self-catheterize, was seen in [place] [facility], was unable to be catheterized and was sent to [facility] where a 16 Bengali catheter was passed. Thereafter unfortunately he had needed to re present to the hospital for adequate drainage and ultimately required urinary catheter insertion with a drainage device. 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 He ultimately developed diarrhea, and on the 11 of January was discovered to have C diff colitis for which he was given a 10 day treatment of vancomycin. This works quite well but his diarrhea began torecur slightly, he was advised symptomatic care in by the 23 of January his diarrhea had nearly resolved. Currently he is self catheterizing every 4 hours, and using a catheter with a more firm plastic tip. Has a excellent plan in place for ongoing management of his urinary drainage. No constitutional complaints no bone pain no fevers. He has had intermittent night sweats but thesehave been perhaps explain by heating he has not had any rash, no PND no orthopnea, we reviewed his chemistries and CBC which are excellent, along with his excellent liver function testing. Past Medical History: Diagnosis Date Benign Prostatic Hyperplasia Without Obstruction Chronic Kidney Disease (CKD), Stage 3a Glomerular Filtration Rate (GFR) 45 To 59 (HCC) Gammopathy Monoclonal Nonspecific Hematuria Gross Kidney And Ureter Disorder Osteoarthritis Retention Urinary Urinary Tract Infection (UTI)/Bacteriuria NOS Current Outpatient Medications: cholecalciferol, vitamin D3, 25 [...] systems reviewed and are negative. OBJECTIVE BP 132/78 Pulse 82 Ht 180.3 cm Wt 85.3 kg BMI 26.24 kg/m?? PHYSICAL EXAMINATION General: Awake alert oriented HEENT: CRISTAL, EOMI, Mucous membranes moist, no oral lesions Neck: No Masses, No Bruits Lungs: Clear to ascultation Heart: Regular Rate and Rhythm, No ectopy Murmurs or rubs Abdomen: Soft, Non-tender Extremities: No cyanosis, No clubbing: No edema Neuro: Cranial Nerves intact, Gait is normal, strength grossly normal Skin: no suspicious lesions identified Psychiatric: Normal affect DIAGNOSTICS Note normal CBC hemoglobin 13.2, creatinine 1.4 mg/dL, normal iron studies normal liver function testing normal PTH microalbumin to creatinine ratio 60 milligrams/gram ASSESSMENT / PLAN #1 Chronic Kidney Disease (CKD), Stage 3b Glomerular Filtration Rate (GFR) 30 To 44 (HCC) I congratulated him on his stability of his renal dysfunction, with a serum creatinine level stableat 1.4 mg/dl. Going forward: 1. Continued attention towards his urinary drainage, which is absolutely adherent and does a tremendous job with. 2. Low-sodium diet 3. Agree with his fluid intake of 2 L per day 4. Continue goals blood pressure less than 130s over 80s which he is achieved 5. No NSAIDs or Pugh 2 inhibitors 6. I will schedule a return visit to our clinic in 6 months. #2 Hyperparathyroidism Renal Secondary (HCC) His PTH level has returned to normal, I congratulated him. #3 Anemia Of Chronic Renal Failure Hemoglobin is essentially normal at 13.2 and I congratulated him we will monitor this. #4 Gammopathy Monoclonal Nonspecific He is due for follow-up, his current levels are pending, I will be also checking again in 6 months. Total time: 30 minutes Counseling Time: 20 minutes Annika Diaz Jr..Jeannie. documented in this encounter Plan of Treatment Upcoming Encounters Date Type Department Care Team (Latest Contact Info) Description 06/05/2024 10:00 AM CDT Clinical Communication Virtual Review in [place], [place] 200 [place] [address] 06/06/2024 11:00 AM CDT Office Visit Department of Urology in [place], [place] [address] [place] [phone] Shirley Villanueva APRN, C.N.P., M.S.N. 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
--- OUTSIDE RECORDS SUMMARY | 2024-04-10 11:13 | XMS_ITS | Clinical Summary ---
Author Organization [facility] Address [address] [place] [address] Care Team Providers Care Transportation Mechanic Name Role Phone Elsewhere, Pcp Primary Care Provider Unavailabl e Source Comments Patient records contain information from all sites at [facility]. For routine questions regarding patient records, call [phone] during business hours, M-F 8:00 AM - 5:00 PM Central Time. Record requests for emergency care only can be directed to [phone] at any time.[facility] Allergies Active Allergy Reactions Criticality Noted [...] Renal Secondary 08/08/2023 Cystitis Unspecified Without Hematuria 12/05/202 3 Encounters Date Type Department Care Team Description 02/07/2024 11:00 AM CDT External Outreach Division of Nephrology and Hypertension in [place], [place] [address] [place] [address] Jaime Bull Jr., D.O. Chronic Kidney Disease (CKD), Stage 3b Glomerular Filtration Rate (GFR) 30 To 44 (HCC) (Primary Dx); Hyperparathyroidis m Renal Secondary (HCC); Anemia Of Chronic Renal Failure; Gammopathy Monoclonal Nonspecific 01/15/2024 Clinical Communication Department of Urology in [place], [place] [address] [place] [address] Shirley Villanueva APRN, C.NZeeshanP., M.S.N. After Visit Question (Post cysto) 01/10/2024 3:45 PM CDT Office Visit Department of Urology in [place], [place] [address] [place] [address] Shirley Villanueva APRN, C.N.P., M.S.N. Retention Urinary (Primary Dx) 01/09/2024 12:47 PM CDT - 01/09/2024 7:35 PM CDT Emergency [facility] Emergency Department [address] [place] [phone] Sweta Rivera M.D. Diarrhea (Primary Dx); Enterocolitis Due To Clostridium Difficile Not Specified As Recurrent Discharge Disposition: Home or Self Care from Last 3 Months Social History Tobacco Use Types Packs/Day Years Used Date Smoking Tobacco: Never Smokeless Tobacco: Never Tobacco Cessation:Counseling Given: Not Answered Alcohol Use Standard Drinks/Week Comments Not Currently 0 (1 standard drink = 0.6 oz pur e alcohol) [facility] Utilities Answer Date Recorded In the past 12 months has [employer], gas, oil, or water [employer] threatened to shut off services in your [...] your living situation today? I have a [facility] place to live 12/13/2023 Sex and [...] AM CDT Clinical Communication Virtual Review in [place], [place] [address] [place] [address] 06/06/2024 11:00 AM CDT Office Visit Department of Urology in [place], [place] [address] [place] [phone] Shirley Villanueva APRN, C.N.P., M.S.N. [address] [place] [phone] Health Maintenance Due Date Last Done Comments DTaP,Tdap,and Td Vaccines (2 - Td or Tdap) 02/06/2023 02/06/2013, 03/10/2009 COVID-19 Vaccine (4 - 2022-2 4 season) 2023 08/17/2021, 11/15/2020, 10/18/2020 Depression Screening (Annual PHQ-2) 09/04/2023 Fall Risk Screen (Annual) 09/04/2023 Influenza Vaccine (#1) 2024 3, 06/27/2022, 05/19/2021, Additional history exists Pneumococcal vaccine (65+ years) Completed 03/21/20, 12/24/2008 Zoster Vaccines Completed 07/12/2022, 05/2022, 01/15/2009 Medical Devices Implanted Type Area Technical Communication Teacher Device Identifier Shelf Expiration Date Model / [...] performed using the FDA-cleared FilmArray GI Panel ([employer] Semi-Urgent This is a semi-urgen t result(RIDLEY) [facility] Stool 01/09/2024 6:00 PM CDT 01/10/2024 3:56 PM CDT Sweta Rivera M.D. LAB MICROBIOLOGY - GENERAL ORDERABLES [facility] [address] [place] [address], [facility] DTL 200 [facility] 200 [place] [address] * Hepatic Function Panel (01/09/2024 1:47 PM [...] PM CDT 01/09/2024 2:25 PM CDT Carmen L Eladia Vital MZeeshanS. LAB BLOOD ADD-ON [facility] [address] [place] [address], [facility] DTL [facility] [address] [place] [address] * (ABNORMAL) CBC with Differential, Blood (01/09/2024 1:47 PM CDT) Pathologist [facility] Hemoglobin 12.5(L) 13.2 - 16.6 g/dL 01/09/2024 [...] M.S. LAB BLOOD ADD-ON Performing Organization Address City/[facility]/ZIP Co de Phone Number [facility] [address] [place] [address], [facility] STMA [facility] [address] [place] [address] DHPM [facility] [address] [place] [address] * Magnesium (01/09/2024 1:47 PM CDT) Pathologist [facility] Magnesium, S 2.2 1.7 - 2.3 mg/dL 01/09/2024 2:49 PM CDT DTL Blood (Blood, Venous) 01/09/2024 1:47 PM CDT 01/09/2024 2:25 PM CDT Carmen Montilla P.A.-C., M.S. LAB BLOOD ADD-ON Performing Organization Address City/[facility]/ZIP Co de Phone Number [facility] [address] [place] [address], [facility] DTL [facility] [address] [place] [address] * (ABNORMAL) Basic Metabolic Panel (01/09/2024 1:47 [...] Montilla P.A.-C., M.S. LAB BLOOD ADD-ON [facility] [address] [place] [address], [facility] STMA [facility] [address] [place] [address] from Last 3 Months Care Teams Transportation Mechanic Relationship Specialty Start Date End Date Elsewhere, Pcp PCP - General Internal Medicine 12/02/23
--- OUTSIDE RECORDS SUMMARY | 2024-04-10 11:14 | XMS_ITS | Encounter Summary ---
Author Organization 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 [address] [place] [phone] [facility] Referral ID Status Reason Start Date Expiration Date Visits Re quested Visits Authorized [id number] Closed 12/13/2023 12/12/2024 1 1 Encounter Details Date Type Department Care Team (Late st Contact Info) Description 01/08/2024 10:00 AM CDT Procedure visit Department of Urology in [place], [place] [address] [place] [phone] Shirley Villanueva APRN, C.N.P., M.S.N. [address] [place] [phone] Faina Perez R.NZeeshan [address] [place] [phone] Retention Urinary Social History Tobacco Use Types Packs/Day Years Used Date Smoking Tobacco: Never Smokeless Tobacco: Never Alcohol Use Standard Drinks/Week Comments Not Currently 0 (1 standard drink = 0.6 oz pur e alcohol) [facility] Utilities Answer Date Recorded In the past [...] your living situation today? I have a [facility] place to live 12/13/2023 Sex and Gender Information Value Date Recorded Sex Assigned at Male 12/13/2023 1:46 PM CDT Gender Identity Male 12/13/2023 1:46 PM CDT Sexual Orientation Straight 12/13/2023 1: 46 PM CDT documented as of this encounter Progress Notes * Faina Perez RZeeshanN. - 01/08/2024 10:00 AM CDT [...] AM CDT Clinical Communication Virtual Review in [address] [phone] 06/06/2024 11:00 AM CDT Office Visit Department of Urology in [address] [phone] Shirley Villanueva APRN, C.N.P., M.S.N. [address] [place] [phone] documented as of this encounter Visit Diagnoses Diagnosis Retention Urinary documented in this encounter Care Teams Dsp Engineer Relationship Specialty Start Date End Date Elsewhere, Pcp PCP - General Internal Medicine 12/02/23 documented as of this encounter
--- OUTSIDE RECORDS SUMMARY | 2024-04-10 11:14 | XMS_ITS | Encounter Summary ---
Author Organization [facility] Address [address] [place] [address] Care Team Providers Care Supervisor Food Checkers And Cashiers Name Role Phone Elsewhere, Pcp Primary Care [...] AM CDT Clinical Communication Virtual Review in [place], [place] [address] [place] [address] 06/06/2024 11:00 AM CDT Office Visit Department of Urology in [place], [place] [address] [place] [phone] Shirley Villanueva APRN, C.N.P., M.S.N. [address] [place] [phone] documented as of this encounter Visit Diagnoses Not on filedocumented in this encounter Additional Health Concerns Infection Onset Date Last Indicated Resolved Time COVID19 Pending 01/09/2024 01/09/2024 01/29/2024 5 :45 AM CDT C. difficile 01/09/2024 01/09/2024 02/06/2024 5:48 AM CDT documented as of this encounter Care Teams Supervisor Food Checkers And Cashiers Relationship Specialty Start Date End Date Elsewhere, Pcp PCP - General Internal Medicine 12/02/23 documented as of this encounter
--- OUTSIDE RECORDS SUMMARY | 2024-04-10 11:14 | XMS_ITS | Encounter Summary ---
Author Organization [facility] Address [address] [place] [address] Care Team Providers Care Gut Carrier Name Role Phone Elsewhere, Pcp Primary Care Provider Unavailabl e Reason for Visit * Reason Onset Date Comments Message from patient 12/26/2023 Nurse Assessment 12/26/2023 Encounter Details Date Type Department Care Team (Latest Contact Info) Description 12/26/2023 Clinical Communication Department of Urology in [place], [place] [address] [place] [address] Shirley Villanueva APRN, C.N.P., M.S.N. [address] [place] [phone] Message from patient; Nurse Assessment Social History Tobacco Use Types Packs/Day Years Used Date Smoking Tobacco: Never Smokeless Tobacco: Never Alcohol Use Standard Drinks/Week Comments Not Currently 0 (1 standard drink = 0.6 oz pur e alcohol) [facility] Utilities Answer Date Recorded In [...] your living situation today? I have a [facility] place to live 12/13/2023 Sex and [...] AM CDT Clinical Communication Virtual Review in [place], [place] [address] [place] [address] 06/06/2024 11:00 AM CDT Office Visit Department of Urology in [place], [place] [address] [place] [address] Shirley Villanueva APRN, C.N.P., M.S.N. [address] [place] [address] documented as of this encounter Visit Diagnoses Not on filedocumented in this encounter Additional Health Concerns Infection Onset Date Last Indicated Resolved Time COVID19 Pending 01/09/2024 01/09/2024 01/29/2024 5 :45 AM CDT C. difficile 01/09/2024 01/09/2024 02/06/2024 5:48 AM CDT documented as of this encounter Care Teams Gut Carrier Relationship Specialty Start Date End Date Elsewhere, Pcp PCP - General Internal Medicine 12/02/23 documented as of this encounter
--- OUTSIDE RECORDS SUMMARY | 2024-04-10 11:14 | XMS_ITS | Encounter Summary ---
Author Organization [facility] Address [address] [place] [address] Care Team Providers Care Pen And Pencil Repairer Name Role Phone Elsewhere, Pcp Primary Care Provider Unavailabl e Reason for Visit * Appointment Request (Routine) - Closed Specialty Diagnoses / Procedures Referred By Mira t Referred To Contact Nephrology and Hypertension Referral ID Status Reason Start Date Expiration Date Visits Re quested Visits Authorized [id number] Closed 09/08/2023 09/07/2024 1 1 Encounter Details Date Type Department Care Team (Latest Contact Info) Description 09/26/2023 8:00 AM ASSISTANT MECHANIC External Outreach Division of Nephrology and Hypertension in [place], [place] [address] [place] [address] Jaime Bull Jr., D.O. [address] [place] [address] Chronic Kidney Disease (CKD), Stage 3b Glomerular Filtration Rate (GFR) 30 To 44 (HCC) (Primary Dx); Hyperparathyroidism Renal Secondary (HCC); Anemia Of Chronic Renal Failure Social History Tobacco Use Types Packs/Day Years Used Date Smoking Tobacco: Never [facility] Utilities Answer Date Recorded In [...] your living situation today? I have a [facility] place to live 12/13/2023 Sex and Gender Information Value Date Recorded Sex Assigned at Male 12/13/2023 1:46 PM CDT Gender Identity Male 12/13/2023 1:46 PM CDT Sexual Orientation Straight 12/13/2023 1: 46 PM CDT documented as of this encounter Last Filed Vital Signs Vital Sign Reading Time Taken Comments Blood Pressure 146/80 09/26/2023 8:04 AM ASSISTANT MECHANIC Pulse 93 09/26/2023 8:04 AM ASSISTANT MECHANIC Temperature - - Respiratory Rate - - Oxygen Saturation - - Inhaled Oxygen Concentration - - Weight 87.9 kg (193 lb 12.6 oz) 09/26/2023 8:04 AM ASSISTANT MECHANIC Height 177.8 cm (5' 10) 09/26/2023 8:04 AM ASSISTANT MECHANIC Body Mass Index 27.81 09/26/2023 8:04 AM ASSISTANT MECHANIC documented in this encounter Progress Notes * Jaime Bull Jr., D.O. - 09/26/2023 8:00 AM CST Referring Provider: No primary care provider on file. 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 There was some confusion following her last visit, he would interacted with his son who is a general surgeon, phone number [phone]. There were some questions asked by his [...] pending today, I will contact him at [phone] ASSESSMENT / PLAN #1 Chronic Kidney Disease [...] day. #2 Hypertension And Chronic Kidney Disease [id number] Goal blood pressures have been achieved at [...] Time: 30 minutes Jaime Bull Jr., D.O. documented in this encounter Plan of Treatment Upcoming Encounters Date Type Department Care Team (Latest Contact Info) Description 06/05/2024 10:00 AM CDT Clinical Communication Virtual Review in [address] [phone] 06/06/2024 11:00 AM CDT Office Visit Department of Urology in [address] [phone] Shirley Villanueva APRN, C.N.P., M.S.N. 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 difficile 01/09/2024 01/09/2024 02/06/2024 5:48 AM CDT documented as of this encounter Care Teams Pen And Pencil Repairer Relationship Specialty Start Date End Date Elsewhere, Pcp PCP - General Internal Medicine 12/02/23 documented as of this encounter
--- OUTSIDE RECORDS SUMMARY | 2024-04-10 11:14 | XMS_ITS | Encounter Summary ---
Author Organization [facility] Address [address] [place] [address] Care Team Providers Care Manager Of Maintenance Name Role Phone Elsewhere, Pcp Primary Care Provider Unavailabl e Reason for Referral * Outpatient (Routine) - Closed Specialty Diagnoses / Procedures Referred By Conthumble t Referred To Contact Urology Shirley Villanueva APRN, C.NDarlene, M.S.N. [address] [place] [phone] [facility] Referral ID Status Reason Start Date Expiration Date Visits Re quested Visits Authorized [id number] Closed 12/26/2023 06/26/2025 1 1 Encounter Details Date Type Department Care Team (Late st Contact Info) Description 12/26/2023 Orders Only Department of Urology in [place], [place] [address] [place] [phone] Shirley Villanueva APRN, C.N.Vasquez, M.S.N. [address] [place] [phone] Social History Tobacco Use Types Packs/Day Years Used Date Smoking Tobacco: Never Smokeless Tobacco: Never Alcohol Use Standard Drinks/Week Comments Not Currently 0 (1 standard drink = 0.6 oz pur e alcohol) [facility] Utilities Answer Date Recorded In [...] your living situation today? I have a [facility] place to live 12/13/2023 Sex [...] AM CDT Clinical Communication Virtual Review in [place], [place] [address] [place] [address] 06/06/2024 11:00 AM CDT Office Visit Department of Urology in [place], [place] [address] [place] [address] Shirley Villanueva APRN, C.N.P., M.S.N. [address] [place] [address] Scheduled Referrals Name Type Priority Associated Diagnoses Orde r Schedule Urology office visit (clinic) Outpatient Referral Routine Expected: 12/26/2023, Expires: 03/26/2025 documented as of this encounter Visit Diagnoses Not on filedocumented in this encounter Additional Health Concerns Infection Onset Date Last Indicated Resolved Time COVID19 Pending 01/09/2024 01/09/2024 01/29/2024 5 :45 AM CDT documented as of this encounter Care Teams Manager Of Maintenance Relationship Specialty Start Date End Date Elsewhere, Pcp PCP - General Internal Medicine 12/02/23 documented as of this encounter
--- OUTSIDE RECORDS SUMMARY | 2024-04-10 11:14 | XMS_ITS | Encounter Summary ---
Author Organization [facility] Address [address] [place] [address] Care Team Providers Care Circus Artist Name Role Phone Elsewhere, Pcp Primary Care Provider Unavailabl e Reason for Visit * Reason Comments Diarrhea Encounter Details Date Type Department Care Team ([facility] st Contact Info) Description 01/09/2024 12:47 PM CDT - 01/09/2024 7:35 PM CDT Emergency [facility] Emergency Department [address] [place] [phone] Sweta Rivera M.D. [address] [place] [phone] Diarrhea (Primary Dx); Enterocolitis Due To Clostridium [...] your living situation today? I have a [facility] place to live 12/13/2023 Sex and [...] Body Mass Index 27.39 09/26/2023 8:04 AM TREASURY AGENT documented in this encounter Discharge Instructions * Attachments The following attachments cannot be sent through Care Everywhere. * Diarrhea Adult Uerd-ih-Dien (Haitian) documented in this encounter Medications at Time [...] 50 mg by mouth daily with breakfast. 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 [address] [place] [phone] documented as of this encounter Procedures Procedure [...] performed using the FDA-cleared FilmArray GI Panel ([employer] Semi-Urgent This is a semi-urgen t result([place]IDLEY) [facility] Stool 01/09/2024 6:00 PM CDT 01/10/2024 3:56 PM CDT Sweta Rivera M.D. LAB MICROBIOLOGY - GENERAL ORDERABLES [facility] [address] [place] [address], [facility] DTL [address] [place] [address] * Hepatic Function Panel (01/09/2024 1:47 PM [...] M.S. LAB BLOOD ADD-ON Performing Organization Address City/[facility]/ZIP Co de Phone Number [facility] 200 [place] [address], [facility] 200 [place] [address] * Magnesium (01/09/2024 1:47 PM CDT) Magnesium, S 2.2 1.7 - 2.3 mg/dL 01/09/2024 2:49 PM CDT DTL Blood (Blood, Venous) 01/09/2024 1:47 PM CDT 01/09/2024 2:25 PM CDT Carmen Montilla P.A.-C., M.S. LAB BLOOD ADD-ON [facility] 200 [place] [address], [facility] DTL [facility][note 3] 200 [place] [address] * (ABNORMAL) Basic Metabolic Panel (01/09/2024 1:47 [...] Montilla P.A.-C., M.S. LAB BLOOD ADD-ON [facility] [address] [place] [address], [facility] STMA [facility][note 3] 200 [place] [address] * (ABNORMAL) CBC with Differential, Blood (01/09/2024 1:47 PM CDT) [facility] Hemoglobin 12.5(L) 13.2 - 16.6 g/dL 01/09/2024 [...] Montilla P.A.-C., M.S. LAB BLOOD ADD-ON 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
[2024-04-10 11:37] LABS: Albumin* 4.4 g/dL (3.3-5.0); Chloride* 104 mmol/L (96-114); Potassium* 4.6 mmol/L (3.6-5.1); Sodium* 141 mmol/L (135-149)
[2024-04-10 11:39] LABS: Creatinine* 1.6 mg/dL (0.5-1.5); Estimated Glomerular Filt Rate 41 ml/min
[2024-04-10 11:40] LABS: Alkaline Phosphatase* 63 U/L (40-150); Anion Gap 10 mEq/L (7-15); Bilirubin Total* 0.6 mg/dL (0.1-1.5); Blood Urea Nitrogen* 29 mg/dL (7-30); Carbon Dioxide* 27 mmol/L (20-32); Glucose* 88 mg/dL (60-115); Total Protein* 7.6 g/dL (6.0-8.3)
[2024-04-10 11:43] LABS: Alanine Aminotransferase* 25 U/L (4-50); Aspartate Amino Transferase* 32 U/L (12-35)
[2024-04-13 14:43] LABS: Albumin 4.02 g/dL (3.75-5.01); Alpha 2 Globulin 0.95 g/dL (0.48-1.05); Immunofixation IFE Done; Immunoglobulin A 262 mg/dL (68-408); Immunoglobulin G 1155 mg/dL (768-1632); Immunoglobulin M 66 mg/dL (35-263); Kappa Qnt Free Light Chains 33.81 mg/L (3.30-19.40); Kappa/Lambda Light Chain Ratio 0.91 (0.26-1.65); Lambda Qnt Free Light Chains 37.22 mg/L (5.71-26.30); Monoclonal Protein 0.61 g/dL (<=0.00); Total Protein, Serum 7.3 g/dL (6.3-8.2)
== END 2024-04-10 11:11 | disposition home or self-care (01) ==
LOC: NPINS 11:11
PROVIDERS: PCP Family Medicine; Visit Provider Internal Medicine Hematology & Oncology
DX: D47.2 Monoclonal gammopathy (principal)
CPT/HCPCS: 80053; 82784; 83520; 84155; 84165; 86334

== ENCOUNTER 2024-07-29 07:38 | Outpatient (CLI) | payer MEDICARE, BC, SELFPAY ==
--- OUTSIDE RECORDS SUMMARY | 2024-07-29 14:13 | XMS_ITS | Clinical Summary ---
Author Organization [facility] Address [place], [place] [address] Care Team Providers Care Meat Grinder Name Role Phone Cruz Lemon MD Unavailable [phone] Fredy Brizuela Unavailable Anselmo Escamilla MD [...] 10/24/2018 Generalized osteoarthrosis, unspecified site Sciatica 01/15/2009 Overview (01/15/2009): Right L5-S1: only numbness right foot Routine general medical exam ination at a health care facility 12/24/2008 Overview (12/24/2008): Has declined colonoscopy (bro with Colon Ca) [...] Comments Blood Pressure 136/81 09/29/2022 9:47 AM DROP WORKER Pulse 78 09/29/2022 9:47 AM DROP WORKER Temperature 36.7 C (98.1 F) 05/19/2021 12:41 PM CDT Respiratory Rate 16 10/29/2018 4:00 PM DROP WORKER Oxygen Saturation 97% 09/29/2022 9:47 AM DROP WORKER Inhaled Oxygen Concentration - - Weight 90.6 kg (199 lb 11.2 oz) 09/29/2022 9:47 AM DROP WORKER Height 180 cm (5' 10.87) 02/27/2019 2:21 PM CDT Body Mass Index 27.96 02/27/2019 2:21 PM CDT Plan of Treatment Health Maintenance Due Date Last Done Comments Zoster (shingles) series for age 50+ (2 of 3) 03/12/2009 01/15/2009 Pneumococcal series for age 65+ (2 of 2 - PCV) 12/24/2009 12/24/2008 RSV vaccine for adults or (1 - 1-dose 75+ series) 2012 Medicare Wellness for age 65+ 02/07/2014 02/06/2013 BMI (ht and wt on same day) for age 18+ 02/28/2020 02/27/2019, 01/08/2019, 11/29/2018, Additional history exists Depression screening for age 12+ 04/01/2022 04/01/2021, 2021, 03/27/2021, Additional history exists Tetanus booster 02/06/2023 02/06/2013, 03/10/2009 COVID-19 vaccine series ( season) 2024 08/17/2021, 11/15/2020, 10/18/2020 Influenza for age 65+ 05/05/2024 05/19/2021 , 06/23/2020, 07/18/2019, Additional history exists Tdap Completed 02/06/2013 Advance Directives Documents on File Type Date Recorded Patient Drilling Supervisor Expl anation Healthcare Directive 10/25/2018 6:11 PM 02 MAY 2003 * Full Code (Latest Code Status on File) Date Activated Date Inactivated Comments 10/24/2018 2:26 PM 10/29/2018 7:06 PM Question Answer Comments Code Status Discussion: Discussed Care Teams Meat Grinder Relationship Specialty Start Date End Date Anselmo Escamilla MD [address] [place] [address] PCP - General Family Practice 07/08/21 Cruz Lemon MD [address] [place] [address] Ophthalmology Surgery 02/06/13 Fredy Brizuela [address] [place] [address] Ophthalmology Surgery 02/06/13
--- OUTSIDE RECORDS SUMMARY | 2024-07-29 14:14 | XMS_ITS | Clinical Summary ---
Author Organization [facility] Address [address] [place] [address] Care Team Providers Care Political Geographer Name Role Phone Elsewhere, Pcp Primary Care Provider Unavailabl e Source Comments Patient records contain information from all sites at [facility]. For routine questions regarding patient records, call [phone] during business hours, M-F 8:00 AM - 5:00 PM Central Time. Record requests for emergency care only can be directed to [phone] at any time.[facility] Allergies Active Allergy Reactions Criticality Noted Date Comments Amoxicillin Rash 12/15/2021 Oxycodone Rash Low 04/28/2021 Medications zinc gluconate 50 mg tablet Take 50 mg by mouth daily with breakfast. Active multivitamin capsule Take 1 capsule by mouth daily. Active cholecalciferol , vitamin D3, 25 mcg (1,000 Unit) tablet Take 1,000 Units by mouth. 2 Active tamsulosin (FLOMAX) 0.4 mg 24 hr capsule Take 1 capsule (0.4 mg total) by mouth daily. 90 capsule 3 4 Active DME Urological suppliesIndicat ions:Retention Urinary DME Order 1 Unspecified 4 Active Active Problems Problem Noted Date Diagnosed [...] drink = 0.6 oz pur e alcohol) [facility] Utilities Answer Date Recorded In [...] your living situation today? I have a [facility] place to live 12/13/2023 Sex and Gender Information Value Date Recorded Sex Assigned at Male 12/13/2023 1:46 PM CDT Legal Sex Male 5:42 PM SCIENTIFIC LINGUIST Gender Identity Male 12/13/2023 1:46 PM CDT Sexual Orientation Straight 12/13/2023 1: 46 PM CDT Last Filed Vital Signs Vital Sign Reading Time Taken Comments Blood Pressure 132/78 02/07/2024 11:16 AM CDT Pulse 82 02/07/2024 11:16 AM CDT Temperature 36.5 C (97.7 F) 01/09/2024 12:53 PM CDT Respiratory Rate 18 01/09/2024 7:00 PM CDT Oxygen Saturation 96% 01/09/2024 7:15 PM CDT Inhaled Oxygen Concentration - - Weight 85.3 kg (188 lb 0.8 oz) 02/07/2024 11:16 AM CDT Height 180.3 cm (5' 10.98) 02/07/2024 11:16 AM CDT Body Mass Index 26.24 02/07/2024 11:16 AM CDT Plan of Treatment Health Maintenance Due Date Last Done Comments RSV vaccine - (32-36 weeks) or 60+ years (1 - 1-dose 75+ series) 2012 DTaP,Tdap,and Td Vaccines (2 - Td or Tdap) 02/06/2023 02/06/2013, 03/10/2009 Depression Screening (Annual PHQ-2) 09/04/2023 Fall Risk Screen (Annual) 09/04/2023 COVID-19 Vaccine ( season) 2024 08/17/2021, 11/15/2020, 10/18/2020 Influenza Vaccine (#1) 2024 , 06/27/2022, 05/19/2021, Additional history exists Pneumococcal vaccine (65+ years) Completed 03/21/2022, 12/24/2008 Zoster Vaccines Completed 07/12/2022, 08/05/2022, 01/15/2009 IPV Vaccines Aged Out No longer eligi ble based on patient's age to complete this topic Medical Devices Implanted Type Area Lint Cleaner Device Identifier Shelf Expiration Date Model / Serial / Lot Conversions - Default Historical Implant Device Implanted:2015 (Quantity not on file) Hip Implant Description:Device Status Te xt - Hip Imp. Insurance MEDICARE [facility] Care Teams Political Geographer Relationship Specialty Start Date End Date Elsewhere, Pcp PCP - General Internal Medicine 12/02/23
--- OUTSIDE RECORDS SUMMARY | 2024-07-29 14:14 | XMS_ITS ---
Author Organization [facility] Address [address] [place] [address] Care Team Providers Care Furnace Operator And Tender Name Role Phone Unavailable Unavailable Unavailable Surgery Details Not on file Complications Check Surgery Details section. Procedure Estimated Blood Loss Check Surgery Details section. Procedure Findings Check Surgery Details section. Procedure Specimens Taken Check Surgery Details section.
--- OUTSIDE RECORDS SUMMARY | 2024-07-29 14:14 | XMS_ITS | Encounter Summary ---
Author Organization [facility] Address [address] [place] [address] Care Team Providers Care Claims Vice President Name Role Phone Elsewhere, Pcp Primary Care Provider Unavailabl e Encounter Details Date Type Department Care Team (Latest Contact Info) Description 12/02/2023 Intake [facility] Social History Tobacco Use Types Packs/Day Years Used Date Smoking Tobacco: Never [facility] Utilities Answer Date Recorded In the past 12 months has e electric, gas, oil, or water [employer] threatened to shut off services in your [...] your living situation today? I have a [facility] place to live 12/13/2023 Sex and Gender Information Value Date Recorded Sex Assigned at Male 12/13/2023 1:46 PM CDT Legal Sex Male 5:42 PM PUTTY MIXER Gender Identity Male 12/13/2023 1:46 PM CDT Sexual Orientation Straight 12/13/2023 1: 46 PM CDT documented as of this encounter Plan of Treatment Not on file documented as of this encounter Visit Diagnoses Not on filedocumented in this encounter Additional Health Concerns Infection Onset Date Last Indicated Resolved Time COVID19 Pending 01/09/2024 01/09/2024 01/29/2024 5 :45 AM CDT C. difficile 01/09/2024 01/09/2024 02/06/2024 5:48 AM CDT documented as of this encounter Care Teams Claims Vice President Relationship Specialty Start Date End Date Elsewhere, Pcp PCP - General Internal Medicine 12/02/23 documented as of this encounter
--- OUTSIDE RECORDS SUMMARY | 2024-07-29 14:14 | XMS_ITS | Referral Summary ---
Author Organization [facility] Address [address] [place] [address] Care Team Providers Care Job Trainer Name Role Phone Elsewhere, Pcp Primary Care Provider Unavailabl e Source Comments Patient records contain information from all sites at [facility]. For routine questions regarding patient records, call [phone] during business hours, M-F 8:00 AM - 5:00 PM Central Time. Record requests for emergency care only can be directed to [phone] at any time.[facility] Allergies Active [...] drink = 0.6 oz pur e alcohol) [facility] Utilities Answer Date Recorded In the [...] your living situation today? I have a [facility] place to live 12/13/2023 Sex and Gender Information Value Date Recorded Sex Assigned at Male 12/13/2023 1:46 PM CDT Legal Sex Male 5:42 PM RECORD CUTTER Gender Identity Male 12/13/2023 1:46 PM CDT [...] 02/07/2024 11:16 AM CDT Plan of Treatment Not on file Medical Devices Implanted Type Area Environmental Protection Geologist Device Identifier Shelf Expiration Date Model / Serial / Lot Conversions - Default Historical Implant Device Implanted:2015 (Quantity not on file) Hip Implant Description:Device Status Te xt - Hip Imp. Insurance MEDICARE [facility] Care Teams Job Trainer Relationship Specialty Start Date End Date Elsewhere, Pcp PCP - General Internal Medicine 12/02/23
== END 2024-07-29 07:39 | disposition home or self-care (01) ==
LOC: NFLDREF 14:06
PROVIDERS: PCP Family Medicine; Referring Provider Family Medicine; Visit Provider Internal Medicine Nephrology
DX: N18.30 Chronic kidney disease, stage 3 unspecified (principal); D47.2 Monoclonal gammopathy; D63.1 Anemia in chronic kidney disease; R79.0 Abnormal level of blood mineral; I48.0 Paroxysmal atrial fibrillation
CPT/HCPCS: 80061; 80069; 82043; 82570; 82728; 82784; 83520; 83540; 83550; 83970; 84155; 84165; 84450; 84460; 84550; 86140; 86334; 87086; 87186

== ENCOUNTER 2024-12-06 10:32 | Outpatient (CLI) | payer MEDICARE, BC, SELFPAY ==
[2024-12-06 11:53] LABS: Basophils Absolute Auto 0.02 K/uL (0.00-0.30); Basophils Percent Auto 0.4 % (0.0-3.0); Eosinophils Absolute Auto 0.03 K/uL (0.00-0.50); Eosinophils Percent Auto 0.7 % (0.0-7.0); Hematocrit 40.6 % (37.0-53.0); Lymphocytes Percent Auto 17.3 % (20-44); Mean Corpuscular HGB Conc 32 gm/dL (32-36); Mean Corpuscular Hemoglobin 31 pg (26-34); Mean Corpuscular Volume 96 fL (80-100); Monocytes Percent Auto 10.7 % (0.0-11.0); Neutrophils Absolute Auto 3.24 K/uL (1.7-7.0); Neutrophils Percent Auto 70.9 % (42.0-72.0); Platelet Count* 184 K/uL (140-440); RDW Coefficient of Variation % 12.9 % (11.5-15.5); Red Blood Count 4.25 m/uL (4.30-5.90); White Blood Count* 4.57 K/uL (4.50-11.00)
[2024-12-06 12:07] LABS: Slide Review Reflex No
[2024-12-06 12:10] LABS: Albumin* 4.5 g/dL (3.3-5.0); Chloride* 102 mmol/L (96-114); Potassium* 4.5 mmol/L (3.6-5.1); Sodium* 137 mmol/L (135-149)
[2024-12-06 12:13] LABS: Alanine Aminotransferase* 24 U/L (4-50); Alkaline Phosphatase* 54 U/L (40-150); Anion Gap 9 mEq/L (7-15); Aspartate Amino Transferase* 32 U/L (12-35); Bilirubin Total* 0.6 mg/dL (0.1-1.5); Blood Urea Nitrogen* 33 mg/dL (7-30); Calcium* 9.8 mg/dL (8.4-10.6); Carbon Dioxide* 26 mmol/L (20-32); Creatinine* 1.4 mg/dL (0.5-1.5); Estimated Glomerular Filt Rate 49 ml/min; Glucose* 101 mg/dL (60-115); Total Protein* 7.1 g/dL (6.0-8.3)
[2024-12-07 18:29] LABS: Immunoglobulin G 1134 mg/dL (768-1632); Kappa Qnt Free Light Chains 30.37 mg/L (3.30-19.40); Kappa-Lambda Qt FLC W/ Ratio 0.86 (0.26-1.65); Lambda Qnt Free Light Chains 35.24 mg/L (5.71-26.30)
[2024-12-08 23:09] LABS: Albumin 4.12 g/dL (3.75-5.01); Alpha 1 Globulin 0.27 g/dL (0.19-0.46); Alpha 2 Globulin 0.81 g/dL (0.48-1.05); Monoclonal Protein 0.59 g/dL (<=0.00)
== END 2024-12-06 10:33 | disposition home or self-care (01) ==
LOC: NPINS 10:34
PROVIDERS: PCP Family Medicine; Visit Provider Internal Medicine Hematology & Oncology
DX: D47.2 Monoclonal gammopathy (principal)
CPT/HCPCS: 80053; 82787; 83520; 84165; 85025

== ENCOUNTER 2025-03-17 09:15 | Outpatient (CLI) | payer MEDICARE, BC, SELFPAY | END 2025-03-17 09:16 | disposition home or self-care (01) | LOC: NFLDREF 03-20 01:39 | PROVIDERS: PCP Family Medicine; Referring Provider Family Medicine; Visit Provider Internal Medicine Nephrology | DX: N18.30 Chronic kidney disease, stage 3 unspecified (principal); D63.1 Anemia in chronic kidney disease; D47.2 Monoclonal gammopathy; R53.83 Other fatigue; E78.5 Hyperlipidemia, unspecified | CPT/HCPCS: 80061; 80069; 82043; 82570; 82728; 82784; 83520; 83540; 83550; 83970; 84155; 84165; 84450; 84460; 84550; 86140; 86334; 87086 ==

== ENCOUNTER 2025-05-16 09:09 | Outpatient (CLI) | payer MEDICARE, BC, SELFPAY ==
[2025-05-16 09:41] LABS: Creatinine* 1.4 mg/dL (0.5-1.5); Estimated Glomerular Filt Rate 48 ml/min
--- NOTE | 2025-05-16 10:00 | CRLHL7_ITS ---
For Patients: As a result of the Century Cures Act, medical imaging exams and procedure reports are released immediately into your electronic medical record. You may view this report before your referring provider. If you have questions, please contact your health care provider. INDICATION: Pelvic lesion. TECHNIQUE: CT abdomen and pelvis acquired with 95 cc Isovue 370 IV contrast. Delayed images of the pelvis were obtained. COMPARISON: CT abdomen pelvis without contrast 09/26/2023. FINDINGS: Lower chest: Bibasilar atelectasis. Calcified granuloma in the left upper lobe Liver: Unremarkable. Gallbladder and bile ducts: Cholelithiasis. Pancreas: Unremarkable Spleen: Unremarkable. Adrenal glands: Left adrenal nodular thickening. Kidneys: Indeterminate 1.7 centimeter renal cyst in the superior pole of the left kidney. Two simple renal cysts seen in the interpolar region and the lower pole of left kidney. These measure 2.1 and 1.3 centimeters, respectively. GI tract: Sigmoid colonic diverticuli. Appendix is not well visualized. Vasculature: Abdominal aorta is normal in caliber. Lymph nodes: No abdominal lymphadenopathy. Peritoneum/Abdominal Wall: Small fat containing umbilical hernia. Pelvis: Distal ureters and urinary bladder are not visualized due to beam hardening artifact. Redemonstration of a complex cystic right pelvic lesion measuring approximally 6.5 x 5.7 centimeters which involves the right iliacus and iliopsoas muscle with intraosseous involvement of the right acetabulum. There is a small punctate calcification seen in the periphery of the lesion. No significant change in size in comparison to prior examination. Bones: Bilateral hip arthroplasties. IMPRESSION: Redemonstration of a complex cystic right pelvic lesion measuring 6.5 x 5.7 centimeters right pelvic lesion involving the right iliacus and iliopsoas muscle with intraosseous involvement of the right acetabulum. The size is grossly unchanged comparison to prior examination from September of 2023. Recommend correlation with prior biopsy results to exclude malignancy. Cholelithiasis. Indeterminate 1.7 centimeter left upper pole renal cyst. Follow up can be obtained with dedicated renal mass protocol CT or MRI. Please note that all CT scans at this facility use dose modulation, iterative reconstruction, and/or weight-based dosing when appropriate to reduce radiation dose to as low as reasonably achievable. Dictated by Everardo Bhatia MD @ 05/19/2025 8:02:50 AM (Electronically Signed)
== END 2025-05-16 09:10 | disposition home or self-care (01) ==
LOC: CT 09:09
PROVIDERS: PCP Family Medicine; Visit Provider Internal Medicine Nephrology
DX: M79.9 Soft tissue disorder, unspecified (principal); K80.20 Calculus of gallbladder without cholecystitis without obstruction; N28.1 Cyst of kidney, acquired
CPT/HCPCS: 36415; 74177; 82565; Q9967

== ENCOUNTER 2025-08-19 09:53 | Outpatient (CLI) | payer MEDICARE, BC, SELFPAY | END 2025-08-19 09:54 | disposition home or self-care (01) | LOC: NFLDREF 08-24 17:20 | PROVIDERS: PCP Family Medicine; Referring Provider Family Medicine; Visit Provider Family Medicine | DX: N39.0 Urinary tract infection, site not specified (principal); N13.9 Obstructive and reflux uropathy, unspecified | CPT/HCPCS: 87086 ==

== ENCOUNTER 2025-09-03 08:44 | Outpatient (CLI) | payer MEDICARE, BC, SELFPAY | END 2025-09-03 08:45 | disposition home or self-care (01) | LOC: NFLDREF 09-09 18:56 | PROVIDERS: PCP Family Medicine; Referring Provider Family Medicine; Visit Provider Family Medicine | DX: N39.0 Urinary tract infection, site not specified (principal) | CPT/HCPCS: 87086 ==